=== PATIENT | female | born 1950 | race Caucasian/White ===

== ENCOUNTER → 2016-04-26 | Outpatient (CLI) | payer MEDICARE, OTHER ==
[2016-04-26 14:00] LABS: Basophils % (A) 0 %; CH 31.7; CHCM 33.3; Eosinophils # (A) 0.3 k/uL (0-0.7); Eosinophils % (A) 5 %; HDW 2.78; HGB 11.8 gm/dL (11.4-16.0); Luc % (Auto) 2; Lymphocytes # (A) 1.7 k/uL (1.0-4.8); Lymphocytes % (A) 27 %; MCH 30.5 pg (25.0-35.0); MCHC 31.9 g/dL (31.0-37.0); MCV 95.6 fL (80.0-100.0); Mean Platelet Volume 7.7; Monocytes # (A) 0.3 k/uL (0-1.0); Monocytes % (A) 5 %; Neutrophils # (A) 3.9 k/uL (1.3-7.7); Neutrophils % (A) 61 %; RBC 3.87 m/uL (3.80-5.40); RDW 14.2 % (11.5-15.5); WBC 6.4 k/uL (3.8-10.6)
[2016-04-26 14:01] LABS: Appearance,Urine Cloudy (Clear); Bilirubin,Urine Negative (Negative); Glucose,Urine (UA) Negative (Negative); Ketones,Urine Negative (Negative); Leukocyte Esterase,Urine Moderate (Negative); Mucus,Urine Rare /hpf; Nitrite,Urine Negative (Negative); Particle Count 3340; Protein,Urine 2+ (Negative); RBC,Urine 2 /hpf (0-5); Specific Gravity,Urine 1.009 (1.001-1.035); Squamous Epithelial Cell,Urine 9 /hpf (0-4); UA Billing (MACRO vs. MICRO) MICRO; Urobilinogen,Urine <2.0 mg/dL (<2.0); WBC,Urine 7 /hpf (0-5)
[2016-04-26 14:19] LABS: Calcium 9.5 mg/dL (8.4-10.2); Magnesium 2.5 mg/dL (1.6-2.3); Phosphorous 4.2 mg/dL (2.5-4.5); Potassium 4.7 mmol/L (3.5-5.1); Uric Acid 7.5 mg/dL (3.7-7.4)
[2016-04-26 14:28] LABS: % Iron Saturation 39.1 % (20-50)
== END | disposition home or self-care (01) ==
LOC: LABWHC1 13:10
PROVIDERS: ATTEND Nurse Practitioner Family
DX: N18.5 Chronic kidney disease, stage 5 (principal); D64.9 Anemia, unspecified; N25.81 Secondary hyperparathyroidism of renal origin; N39.0 Urinary tract infection, site not specified
CPT/HCPCS: 36415; 80048; 81001; 82040; 82306; 82728; 83540; 83550; 83735; 83970; 84100; 84550; 85025

== ENCOUNTER → 2016-06-24 | Outpatient (CLI) | payer MEDICARE, OTHER ==
[2016-06-24 13:23] LABS: Calcium 9.5 mg/dL (8.4-10.2); Potassium 5.1 mmol/L (3.5-5.1)
== END | disposition home or self-care (01) ==
LOC: LABWHC1 12:26
PROVIDERS: ATTEND Nurse Practitioner Family
DX: N18.5 Chronic kidney disease, stage 5 (principal)
CPT/HCPCS: 36415; 80048

== ENCOUNTER 2016-06-30 15:19 | Observation (INO) | payer MEDICARE, OTHER ==
[2016-06-30] MEDS ORDERED: SODIUM CHLORIDE 0.9% 1,000 ML IV STA (17:35)
--- NOTE | 2016-06-30 17:40 | ED ---
General Adult HPI - General Chief complaint: Chest Pain Stated complaint: chest pain/RAFFAELE Time Seen by Provider: 06/30/16 17:04 Source: patient, RN notes reviewed, old records reviewed Mode of arrival: wheelchair Limitations: no limitations - History of Present Illness Initial comments: This is a 65-year-old female to the ER for evaluation of chest pain. Patient left sided chest pain underneath her left breast rating around to her back. Patient states she has no prior history of chest pain. She is no accurate historian, family at bedside who also does not know much about her medical history. Patient states pain isn't also midepigastric radiating up to her neck with shortness of breath and she states her mouth feels dry. No nausea vomiting no fevers no cough no congestion no travel history. Patient denies prior cardiac evaluation patient has history of high blood pressure, high cholesterol and high kidney disease per chart. Patient per her history only has one kidney - Related Data Home Medications Medication Instructions Recorded Confirmed ALPRAZolam [Xanax] 0.125 mg PO HS PRN 12/14/14 06/30/16 Allopurinol [Zyloprim] 100 mg PO DAILY 12/14/14 06/30/16 Aspirin 81 mg PO DAILY 12/14/14 06/30/16 Ferrous Sulfate [Feosol] 325 mg PO DAILY 12/14/14 06/30/16 Lovastatin [Mevacor] 20 mg PO HS 12/14/14 06/30/16 Sodium Bicarbonate Tab 650 mg PO BID 12/14/14 06/30/16 Vitamin B Complex 1 cap PO DAILY 12/14/14 06/30/16 Cholecalciferol [Vitamin D3] 2,000 unit PO DAILY 08/26/15 06/30/16 Ascorbic Acid [Vitamin C] 500 mg PO DAILY 06/30/16 06/30/16 Atenolol [Tenormin] 12.5 mg PO HS 06/30/16 06/30/16 Fish Oil/Dha/Epa [Fish Oil 1,200 1 cap PO BID 06/30/16 06/30/16 mg Fish Oil] Sucralfate [Carafate] 1 gm PO AC-TID 06/30/16 06/30/16 Super Kidney Cleanse 1 tab PO BID 06/30/16 06/30/16 Torsemide [Demadex] 20 mg PO DAILY 06/30/16 06/30/16 Allergies Allergy/AdvReac Type Severity Reaction Status Date / Time amoxicillin trihydrate Allergy Anaphylaxis Verified 06/30/16 17:28 [From Augmentin] iodine Allergy Anaphylaxis Verified 06/30/16 17:28 menthol Allergy Unknown Verified 06/30/16 17:28 potassium clavulanate Allergy Anaphylaxis Verified 06/30/16 17:28 [From Augmentin] sulfasalazine Allergy Unknown Verified 06/30/16 17:28 [From Azulfidine] Review of Systems ROS Statement: Those systems with pertinent positive or pertinent negative responses have been documented in the HPI. ROS Other: All systems not noted in ROS Statement are negative. Past Medical History Past Medical History: Hyperlipidemia, Hypertension, Renal Disease Additional Past Medical History / Comment(s): 1 kidney History of Any Multi-Drug Resistant Organisms: None Reported Past Surgical History: Appendectomy, Orthopedic Surgery, Tonsillectomy Past Psychological History: Anxiety Smoking Status: Never smoker Past Alcohol Use History: None Reported Past Drug Use History: None Reported General Exam Limitations: no limitations General appearance: alert, in no apparent distress Head exam: Present: atraumatic, normocephalic, normal inspection Eye exam: Present: normal appearance, PERRL, EOMI. Absent: scleral icterus, conjunctival injection, periorbital swelling ENT exam: Present: normal exam, mucous membranes moist Neck exam: Present: normal inspection. Absent: tenderness, meningismus, lymphadenopathy Respiratory exam: Present: normal lung sounds bilaterally. Absent: respiratory distress, wheezes, rales, rhonchi, stridor Cardiovascular Exam: Present: regular rate, normal rhythm, normal heart sounds. Absent: systolic murmur, diastolic murmur, rubs, gallop, clicks GI/Abdominal exam: Present: soft, normal bowel sounds. Absent: distended, tenderness, guarding, rebound, rigid Extremities exam: Present: normal inspection, full ROM, normal capillary refill. Absent: tenderness, pedal edema, joint swelling, calf tenderness Back exam: Present: normal inspection Neurological exam: Present: alert, oriented X3, CN II-XII intact Psychiatric exam: Present: normal affect, normal mood Skin exam: Present: warm, dry, intact, normal color. Absent: rash Course Vital Signs 06/30/16 16:34 Temperature 98.1 F Pulse Rate 66 Respiratory 18 Rate Blood Pressure 128/66 O2 Sat by Pulse 96 Oximetry - Reevaluation(s) Reevaluation #1: 06/30/16 18:43 Patient still having episodic episodes of chest pain, unsure of recent cardiac evaluation EKG Findings - EKG Comments: EKG Findings:: EKG shows sinus bradycardia rate 59, MI 196; QRS 104, QTC 411 Medical Decision Making - Medical Decision Making 65-year-old year with high blood pressure Kustra coming in with chest pain. Patient be admitted for chest pain observation, EKG and were negative chest x- ray is negative, patient was placed on anticoagulation admitted for cardiac observation and telemetry - Lab Data Result diagrams: 06/30/16 17:14 06/30/16 17:14 Lab Results 06/30/16 06/30/16 06/30/16 Range/Units 17:14 17:14 17:14 WBC 6.8 (3.8-10.6) k/uL RBC 3.54 L (3.80-5.40) m/uL Hgb 11.2 L (11.4-16.0) gm/dL Hct 33.9 L (34.0-46.0) % MCV 96.0 (80.0-100.0) fL MCH 31.8 (25.0-35.0) pg MCHC 33.1 (31.0-37.0) g/dL RDW 14.5 (11.5-15.5) % Plt Count 146 L (150-450) k/uL Neutrophils % 67 % Lymphocytes % 23 % Monocytes % 4 % Eosinophils % 4 % Basophils % 0 % Neutrophils # 4.6 (1.3-7.7) k/uL Lymphocytes # 1.5 (1.0-4.8) k/uL Monocytes # 0.3 (0-1.0) k/uL Eosinophils # 0.3 (0-0.7) k/uL Basophils # 0.0 (0-0.2) k/uL PT (9.0-12.0) sec INR (<1.1) APTT (22.0-30.0) sec Sodium 142 (137-145) mmol/L Potassium 4.5 (3.5-5.1) mmol/L Chloride 105 (98-107) mmol/L Carbon Dioxide 25 (22-30) mmol/L Anion Gap 12 mmol/L BUN 56 H (7-17) mg/dL Creatinine 3.29 H (0.52-1.04) mg/dL Est GFR (MDRD) Af Amer 17 (>60 ml/min/1.73 sqM) Est GFR (MDRD) Non-Af 14 (>60 ml/min/1.73 sqM) Glucose 91 (74-99) mg/dL Calcium 10.0 (8.4-10.2) mg/dL Magnesium 2.4 H (1.6-2.3) mg/dL Total Bilirubin 0.6 (0.2-1.3) mg/dL AST 44 H (14-36) U/L ALT 42 (9-52) U/L Alkaline Phosphatase 75 (38-126) U/L Total Creatine Kinase 56 (30-135) U/L Total Protein 6.7 (6.3-8.2) g/dL Albumin 4.1 (3.5-5.0) g/dL Lipase 168 (23-300) U/L 06/30/16 Range/Units 17:14 WBC (3.8-10.6) k/uL RBC (3.80-5.40) m/uL Hgb (11.4-16.0) gm/dL Hct (34.0-46.0) % MCV (80.0-100.0) fL MCH (25.0-35.0) pg MCHC (31.0-37.0) g/dL RDW (11.5-15.5) % Plt Count (150-450) k/uL Neutrophils % % Lymphocytes % % Monocytes % % Eosinophils % % Basophils % % Neutrophils # (1.3-7.7) k/uL Lymphocytes # (1.0-4.8) k/uL Monocytes # (0-1.0) k/uL Eosinophils # (0-0.7) k/uL Basophils # (0-0.2) k/uL PT 10.5 (9.0-12.0) sec INR 1.0 (<1.1) APTT 21.9 L (22.0-30.0) sec Sodium (137-145) mmol/L Potassium (3.5-5.1) mmol/L Chloride (98-107) mmol/L Carbon Dioxide (22-30) mmol/L Anion Gap mmol/L BUN (7-17) mg/dL Creatinine (0.52-1.04) mg/dL Est GFR (MDRD) Af Amer (>60 ml/min/1.73 sqM) Est GFR (MDRD) Non-Af (>60 ml/min/1.73 sqM) Glucose (74-99) mg/dL Calcium (8.4-10.2) mg/dL Magnesium (1.6-2.3) mg/dL Total Bilirubin (0.2-1.3) mg/dL AST (14-36) U/L ALT (9-52) U/L Alkaline Phosphatase (38-126) U/L Total Creatine Kinase (30-135) U/L Total Protein (6.3-8.2) g/dL Albumin (3.5-5.0) g/dL Lipase (23-300) U/L - Radiology Data Radiology results: report reviewed (Chest x-ray is negative for acute disease), image reviewed Critical Care Time Critical Care Time: Yes Total Critical Care Time: 31 Disposition Clinical Impression: Chest pain Disposition: ADMITTED IP TO THIS [facility] Condition: Undetermined Instructions: Chest Pain (ED) Referrals: Marisela Hoyt MD [Primary Care Provider] - 1-2 days
[2016-06-30 18:09] LABS: Basophils % (A) 0 %; CH 32.3; CHCM 33.8; Eosinophils # (A) 0.3 k/uL (0-0.7); Eosinophils % (A) 4 %; HCT 33.9 % (34.0-46.0); HDW 2.82; HGB 11.2 gm/dL (11.4-16.0); Luc # (Auto) 0.19; Luc % (Auto) 3; Lymphocytes # (A) 1.5 k/uL (1.0-4.8); Lymphocytes % (A) 23 %; MCH 31.8 pg (25.0-35.0); MCHC 33.1 g/dL (31.0-37.0); Mean Platelet Volume 6.9; Monocytes # (A) 0.3 k/uL (0-1.0); Monocytes % (A) 4 %; Neutrophils # (A) 4.6 k/uL (1.3-7.7); Neutrophils % (A) 67 %; RBC 3.54 m/uL (3.80-5.40); RDW 14.5 % (11.5-15.5); WBC 6.8 k/uL (3.8-10.6); WBC (Perox) 7.43
[2016-06-30 18:15] LABS: Prothrombin Time 10.5 sec (9.0-12.0)
--- NOTE | 2016-06-30 18:15 | XR ---
EXAMINATION TYPE: XR chest 2V DATE OF EXAM: 06/30/2016 6:08 PM COMPARISON: 08/26/2015 HISTORY: Short of breath and chest pain TECHNIQUE: Frontal and lateral views of the chest are obtained. FINDINGS: There is no heart failure nor confluent pneumonic infiltrate. There are no hilar masses. T here are chest leads. Bony thorax is intact. IMPRESSION: No active cardiopulmonary disease. No change.
[2016-06-30 18:17] LABS: Magnesium 2.4 mg/dL (1.6-2.3); Potassium 4.5 mmol/L (3.5-5.1); Total Bilirubin 0.6 mg/dL (0.2-1.3); Total Protein 6.7 g/dL (6.3-8.2)
[2016-06-30 18:23] LABS: Partial Thromboplastin Time 21.9 sec (22.0-30.0)
[2016-06-30] MEDS ORDERED: ASPIRIN 81 MG CHEW PO STA (18:25)
[2016-06-30] MEDS ORDERED: HEPARIN SODIUM,PORCINE 5,000 UNIT/ML 1 ML VIAL IV PRN (18:25)
[2016-06-30] MEDS ORDERED: MORPHINE SULFATE 4 MG/ML SYRINGE IV PRN (18:25)
[2016-06-30] MEDS ORDERED: HEPARIN SODIUM,PORCINE 5,000 UNIT/ML 1 ML VIAL IV ONE (18:25)
[2016-06-30] MEDS ORDERED: NITROGLYCERIN SL TABS 0.4 MG TAB SUBLINGUAL PRN (18:25)
[2016-06-30 18:30] LABS: Creatine Kinase 56 U/L (30-135)
[2016-06-30] MEDS ORDERED: HEPARIN SODIUM,PORCINE/D5W PMX 25,000 UNIT in DEXTROSE/WATER 1 500ML.BAG IV SCH (18:30)
[2016-06-30] MEDS ORDERED: SODIUM CHLORIDE 0.9% 1,000 ML IV SCH (18:30)
[2016-06-30 18:44] LABS: Creatine Kinase MB 0.5 ng/mL (0.0-2.4); Troponin I <0.012 ng/mL (0.000-0.034)
[2016-06-30 22:31] VITALS: BMI 44.1
[2016-06-30] MEDS ORDERED: ATENOLOL 12.5 MG TAB PO SCH (23:00)
[2016-06-30] MEDS ORDERED: ATORVASTATIN 10 MG TAB PO SCH (23:00)
[2016-07-01 00:18] LABS: Creatine Kinase 46 U/L (30-135)
[2016-07-01 00:32] LABS: Creatine Kinase MB 0.4 ng/mL (0.0-2.4); Troponin I <0.012 ng/mL (0.000-0.034)
[2016-07-01 06:12] LABS: Mean Platelet Volume 6.8
[2016-07-01 06:25] LABS: Cholesterol 157 mg/dL (<200); HDL Cholesterol 44 mg/dL (40-60); Triglycerides 321 mg/dL (<150)
[2016-07-01 06:38] LABS: Creatine Kinase 42 U/L (30-135)
[2016-07-01 06:51] LABS: Creatine Kinase MB 0.5 ng/mL (0.0-2.4); Troponin I <0.012 ng/mL (0.000-0.034)
[2016-07-01 08:20] VITALS: RESP 18
[2016-07-01] MEDS ORDERED: ASPIRIN 325 MG TAB PO SCH (09:00)
[2016-07-01] MEDS ORDERED: AMINOPHYLLINE 500 MG/20 ML VIAL IV PRN (10:19)
[2016-07-01] MEDS ORDERED: REGADENOSON 0.4 MG/5 ML SYRINGE IV ONE (10:19)
--- NOTE | 2016-07-01 11:10 | CONS ---
DATE OF CONSULTATION: Patient is allergic to multiple medications which include AMOXICILLIN, TRIHYDRATE, IODINE, MENTHOL, POTASSIUM. Patient had episode of chest heaviness and tightness while she was not doing any activity. Pain was under the breast and with radiation to the back. It lasted about 5 - 10 minutes without any diaphoresis. The first episode happened while she was walking a short distance to the pharmacy. Was not able to walk and had felt shortness of breath and heaviness and tightness. Patient had these symptoms on and off for the last 2 - 3 days. Patient's cardiac enzymes x3 are negative. EKGs are within normal limits. Patient has history of only one functioning kidney. Patient is already prepped for dialysis, has not been on dialysis with a creatinine of 3.29, BUN of 56. Potassium is normal. The patient is known to have hypertension, hyperlipidemia. Patient is also allergic to SULFA DRUGS. Patient was seen in the emergency room with left-sided chest pain as mentioned above. Patient is moderately obese, not much activities. Patient has 2 daughters and 1 son. Patient's EKGs are normal. Enzymes as mentioned above are normal. Patient's medications prior to admission include Xanax 0.125 mg p.r.n., Allopurinol 100 mg p.o. daily, aspirin 81 mg, ferrous sulfate 325, lovastatin 20 mg p.o. daily, sodium bicarbonate 50 mg p.o. b.i.d., vitamin B complex 1 tablet daily, Cholecalciferol 2000 units daily, ascorbic acid 500 mg, atenolol 12.5 mg p.o. daily, fish oil capsule 1200 mg capsule b.i.d., Carafate 1 gm p.o. a.c. and t.i.d., torsemide 20 mg p.o. daily. Patient's past history and review of systems are essentially unremarkable other than history of hypertension, hyperlipidemia, renal disease with only one functioning kidney, already prepped for dialysis but not on dialysis at present time. Patient had appendectomy, orthopedic surgery, tonsillectomy. Patient is a nonsmoker, not a diabetic. Review of systems are essentially unremarkable. Troponin x3 are negative. Physical examination revealed a 65-year-old with moderate obesity with a pulse rate of 69 beats per minute and regular, blood pressure of 122/70, respirations of 16. Head normocephalic. HEENT unremarkable. Neck is supple. No thyroid enlargement. No bruit noted. Good carotid upstroke bilaterally. Chest is symmetrical. Cardiac examination, regular rate and rhythm, S1 and S2. Lungs are to clinically clear to auscultation and percussion. Abdomen is soft, no organomegaly. Active bowel sounds. EXTREMITIES: Decreased pedal pulses. No pedal edema. [employer] examination grossly within normal limits. EKG normal sinus rhythm, normal ST-T waves. Troponin x3 are negative. Patient does not chronic renal failure with a creatinine of 3.29, BUN of 56 and allergic to IODINE. ASSESSMENT: 1. Chest pain suggestive of possible angina. 2. Hypertension. 3. Hyperlipidemia. 4. Exogenous obesity. 5. Chronic renal failure already had a dialysis shunt in place, not on dialysis at present time, follows with Dr. Puentes. RECOMMENDATIONS: Will proceed with a Lexiscan Cardiolite study and an echocardiogram and d-dimer. If any of these studies are abnormal, will need to talk to Dr. Puentes before we do any invasive studies. Patient may end up on dialysis if we do the cardiac catheterization. Patient is also allergic to IODINE. Need to supplement with steroids and H2-blockers. Thanks again for this kind referral.
[2016-07-01 13:00] VITALS: BP 136/74; PULSE 65; TEMP 97.7
--- NOTE | 2016-07-01 13:03 | EST ---
DATE OF SERVICE: 07/01/2016 AGE: 65Y SEX: F HT: 60" WT: 225 lbs. Protocol Juliano: Other: Lexiscan Cardiolite Stage: Dur. of Exercise: *Heart Rate Blood Pressure *Rest: 57 Rest: 135/73 * *Max. Achieved: 81 Maximum BP: 135/77 85% PMHR: 100% PMHR: *METS: INDICATIONS: Chest pain. MEDICATIONS: Baseline rhythm is sinus mechanism, rate of 57, left axis deviation, poor R wave progression, nonspecific T wave changes anteriorly. Baseline blood pressure 135/73 mmHg. Patient received an injection of Lexiscan. Electrocardiograph monitoring revealed no evidence of diagnostic ischemic ST deviation. Cardiolite was injected at protocol. Occasional PVCs were noted. CONCLUSION: 1. Nondiagnostic electrocardiograph stress testing. 2. Nuclear images will be reported separately.
[2016-07-01] MEDS ORDERED: ALLOPURINOL 100 MG TAB PO SCH (13:30)
[2016-07-01] MEDS ORDERED: ALPRAZolam 0.25 MG TAB PO SCH (13:30)
[2016-07-01] MEDS ORDERED: NON-FORMULARY DRUG (Fish Oil/Dha/Epa [Fish Oil 1,200 Mg Fish Oil] 1 CAP) PO SCH (13:30)
[2016-07-01] MEDS ORDERED: CHOLECALCIFEROL 1,000 UNIT TAB PO SCH (13:30)
[2016-07-01] MEDS ORDERED: SODIUM BICARBONATE TAB 650 MG TAB PO SCH (13:30)
[2016-07-01] MEDS ORDERED: ASCORBIC ACID 500 MG TAB PO SCH (13:30)
[2016-07-01] MEDS ORDERED: TORSEMIDE 20 MG TAB PO SCH (13:30)
[2016-07-01] MEDS ORDERED: FERROUS SULFATE 325 MG TAB PO SCH (13:30)
--- NOTE | 2016-07-01 13:33 | NM ---
EXAMINATION TYPE: NM stress Lexiscan cardiolite DATE OF EXAM: 07/01/2016 1:20 PM COMPARISON: NONE HISTORY: Chest pain TECHNIQUE: After the intravenous administration of 10.4 mCi Tc 99m Sestamibi - Cardiolite resting SP ECT images acquired 45 minutes post injection. The patient received 0.4mg Lexiscan, 27.5 mCi Tc 99m Sestamibi - Stress images obtained [address] injection FINDINGS: There is adequate uptake of radiopharmaceutical by the left ventricle. There is some thinni ng of the inferior wall. This may represent diaphragmatic attenuation or previous nontransmural infar ct. There is no convincing inducible ischemic change. Wall motion is normal and ejection fraction is normal 54%. IMPRESSION: I DO NOT SEE CONVINCING EVIDENCE OF ISCHEMIC CHANGE AT THIS TIME.
[2016-07-01] MEDS ORDERED: B COMPLEX-VIT C-VIT E-ZINC 1 EACH TAB PO SCH (14:00)
[2016-07-01] MEDS ORDERED: SUCRALFATE 1 GM TAB PO SCH (17:30)
--- NOTE | 2016-07-01 21:14 | HP ---
CHIEF COMPLAINT: Chest pain. HISTORY OF PRESENT ILLNESS: Ms. Sharma is a 65-year-old female with a known history of hypertension, hyperlipidemia, solitary kidney and CKD stage [address] Yang ), came to the hospital with complaints of chest pain. Patient apparently had been having pain underneath her left breast and also in the mid epigastric region, radiating to her neck and with short of breath. Patient decided to come to the hospital. The patient states that her mouth feels very dry. No nausea or vomiting. No headache or dizziness or lightheadedness. Denies any fever or chills. No recent illnesses. Patient has a fistula placed for possible dialysis in future. No prior cardiac history. Denied any recent illnesses or travel. REVIEW OF SYSTEMS: CONSTITUTIONAL: No fever. No chills. No weakness. No rigors. RESPIRATORY: No cough or sputum production. CARDIOVASCULAR: No chest pain or short of breath. No leg swelling. ABDOMEN: No nausea or vomiting, abdominal pain. No diarrhea. GENITOURINARY: Negative. ENDOCRINE: Negative. PSYCHIATRIC: Negative. SKIN: Negative. All other 14-point review of systems negative except as above. PAST MEDICAL HISTORY: CKD stage 4, solitary kidney, hypertension, hyperlipidemia. PAST SURGICAL HISTORY: Appendectomy, orthopedic surgery, tonsillectomy, anxiety. SOCIAL HISTORY: The patient smoked for 1 or 2 years when she was a teenager. Otherwise, no smoking now. Denied any alcohol use. Denied any drugs or IVDU. FAMILY HISTORY: Denied any history of hypertension, diabetes mellitus or premature heart disease in the family. Home medications include: 1. Xanax. 2. Zyloprim. 3. Aspirin. 4. Feosol. 5. Lovastatin. 6. Sodium bicarbonate. 7. Vitamin B complex. 8. Vitamin D3. 9. Vitamin C. 10. Atenolol. 11. Fish oil. 12. Carafate. 13. Super Kidney Cleanse and 14. Torsemide. ALLERGIES INCLUDE AUGMENTIN, IODINE, MENTHOL, POTASSIUM CLAVULANATE AND SULFASALAZINE. PHYSICAL EXAMINATION: A 65-year-old female, morbidly obese, lying in the bed comfortably. Awake, alert and oriented x3. Appears to be in no apparent distress. VITALS: Blood pressure is 134/60, pulse is 69, respirations 18, temperature afebrile, pulse ox 98% on 2L nasal cannula. HEENT: Atraumatic, normocephalic. Neck is supple. No JVD. CVS: S1, S2 heard. No murmurs. No gallop. No rub. LUNGS: Bilateral air entry is present. No wheezing. No crackles. Decreased breath sounds basally. Nonlabored breathing. ABDOMEN: Soft, obese. Bowel sounds are present. TAPPER BIT: Awake, alert, oriented, x3. No focal deficit. EXTREMITIES: No edema. Pulses palpable bilaterally. No clubbing or cyanosis. PSYCHIATRIC: Cooperative. LABORATORY DATA: WBC 6.8, hemoglobin 11.2, platelets 146. D-dimer is 0.34. Sodium 142, potassium 4.5, chloride 105, bicarb is 25. BUN 56, creatinine 3.29. Magnesium 2.4. AST is 44, ALT is 42. Troponin x3 is negative. Triglycerides are 321 and LDL is 49. Lipase is 168. EKG showed normal sinus rhythm with ST-T wave changes. Chest x-ray: No acute cardiopulmonary process. IMPRESSION: 1. Unstable angina. 2. Hypertension. 3. Hyperlipidemia. 4. Chronic kidney disease stage 4, post fistula placement. 5. Morbid obesity with a body mass index of 44. 6. Gastroesophageal reflux disease. DISCUSSION AND PLAN: A 65-year-old female admitted to the hospital with chest pain. Troponins and EKG are negative. Patient recommended by Cardiology having Lexiscan stress test. Otherwise, patient is chest pain free. Will continue the Carafate and recommend to follow with the primary care physician as an outpatient. Will continue tele monitoring and serial EKGs and troponins. Further recommendations based on the clinical course.
--- NOTE | 2016-07-02 11:03 | ECHOF ---
Referral Reason:lv function MEASUREMENTS -------- HEIGHT: 157.5 cm WEIGHT: 102.1 kg BP: IVSd: 1.3 cm (0.6 - 1.1) LVIDd: 5.1 cm (3.9 - 5.3) LVPWd: 1.5 cm (0.6 - 1.1) IVSs: 2.3 cm LVIDs: 3.1 cm LVPWs: 1.7 cm Ao Diam: 3.0 cm (2.0 - 3.7) AV Cusp: 2.0 cm (1.5 - 2.6) LA Diam: 3.9 cm (2.7 - 3.8) MV EXCURSION: 7.983 mm (> 18.000) MV EF SLOPE: 61 mm/s (70 - 150) EPSS: 0.7 cm MV E Justus: 1.10 m/s MV DecT: 254 ms MV A Justus: 1.00 m/s MV E/A Ratio: 1.10 RAP: 5.00 mmHg RVSP: 30.81 mmHg FINDINGS -------- Sinus rhythm with extra systolic beats. This was a technically good study. The left ventricular size is normal. There is mild concentric left ventricular hypertrophy. Overall left ventricular systolic function is normal with, an EF between 55 - 60 %. The right ventricle is normal in size and function. The left atrium is normal in size. The right atrium is normal in size. The aortic valve is trileaflet, and appears structurally normal. No aortic stenosis or regurgitation. The mitral valve is normal. Mild mitral regurgitation is present. Mild tricuspid regurgitation present. The right ventricular systolic pressure, as measured by Doppler, is 30.81mmHg. There is no pulmonic regurgitation present. The aortic root, ascending aorta and aortic arch are normal. There is no pericardial effusion. CONCLUSIONS -------- 1. Sinus rhythm with extra systolic beats. 2. There is no pulmonic regurgitation present. 3. The aortic root, ascending aorta and aortic arch are normal. 4. There is no pericardial effusion. 5. This was a technically good study. 6. There is mild concentric left ventricular hypertrophy. 7. Overall left ventricular systolic function is normal with, an EF between 55 - 60 %. 8. The left atrium is normal in size. 9. The aortic valve is trileaflet, and appears structurally normal. No aortic stenosis or regurgitation. 10. Mild mitral regurgitation is present. 11. Mild tricuspid regurgitation present. 12. The right ventricular systolic pressure, as measured by Doppler, is 30.81mmHg. [employer]: Marcie Dang RDCS
--- NOTE | 2016-07-02 16:13 | DS ---
DATE OF ADMISSION: 06/30/2016 DATE OF DISCHARGE: 07/01/2016 DISCHARGE DIAGNOSES: 1. Angina, ruled out acute coronary syndrome. Lexiscan stress test negative. 2. Morbid obesity with body mass index of 44. 3. Chronic kidney disease stage IV. 4. Hypertension. 5. Hyperlipidemia. 6. Gastroesophageal reflux disease. HOSPITAL COURSE: Ms. Sharma is a 65-year-old female with known history of chronic kidney disease stage IV admitted to the hospital with complaints of chest pain under left breast. The patient was telemonitored and serial EKGs and troponins are negative. Cardiology recommended Lexiscan stress test, which was negative as well. Her symptoms are most likely from GERD related symptoms, which are improved at this time. Patient also has only one functioning kidney and follows with nephrology and patient was placed on dialysis. Otherwise, the patient is stable to be discharged home. DISCHARGE PHYSICAL EXAMINATION: A 65-year-old female lying in the bed comfortably, awake, alert, oriented x3, appears to be in no apparent distress. VITALS: Blood pressure is 136/74, pulse is 65, respirations 18, temperature afebrile, pulse ox 97% on room air. Laboratory data reviewed. Triglycerides 321. Serial troponins are negative. BUN 56, creatinine 3.29. D-dimer 0.34. Discharge physical examination done. Discharge medications include: 1. Ferrous sulfate 325 mg p.o. daily. 2. Atenolol 12.5 mg p.o. at bedtime. 3. Lovastatin 40 mg p.o. at bedtime. 4. Alprazolam 0.25 mg p.o. daily p.r.n. for anxiety. 5. Aspirin 81 mg p.o. daily 6. Torsemide 20 mg p.o. daily. 7. Sodium bicarbonate 650 mg p.o. b.i.d. 8. Sucralfate 1 gram p.o. a.c. t.i.d. 9. Allopurinol 100 mg p.o. daily. 10. Fish oil 1 capsule p.o. b.i.d. 11. Super kidney pattern cleaner 1 tablet p.o. b.i.d. 12. Ascorbic acid 500 mg p.o. daily. 13. Vitamin B complex 1 capsule p.o. daily. 14. Vitamin D3 2000 units of p.o. daily. Activity as tolerated and heart healthy and renal diet and follow with primary care physician, Dr. Marisela Hoyt in 1 to 2 days. Home with self-care.
== END 2016-07-01 17:15 | disposition home or self-care (01) ==
LOC: EC 15:19 → 3OBS 18:25
PROVIDERS: ADMIT Hospitalist; ATTEND Hospitalist
DX: I20.0 Unstable angina (principal); E78.5 Hyperlipidemia, unspecified; Q60.0 Renal agenesis, unilateral; F41.9 Anxiety disorder, unspecified; Z68.42 Body mass index [BMI] 45.0-49.9, adult; I12.9 Hypertensive chronic kidney disease with stage 1 through stage 4 chronic kidney disease, or unspecified chronic kidney disease; Z99.2 Dependence on renal dialysis; N18.4 Chronic kidney disease, stage 4 (severe); Z87.891 Personal history of nicotine dependence; E66.01 Morbid (severe) obesity due to excess calories; Z68.41 Body mass index [BMI] 40.0-44.9, adult; K21.9 Gastro-esophageal reflux disease without esophagitis; Z79.899 Other long term (current) drug therapy; Z79.82 Long term (current) use of aspirin; Z88.2 Allergy status to sulfonamides; Z88.0 Allergy status to penicillin; Z91.048 Other nonmedicinal substance allergy status
CPT/HCPCS: 96365; 96366 ×2; 96376; 99291; 36415; 93005; 93017; 93306; 85379; 83880; 80061; 80053; 82550 ×2; 82553 ×2; 83690; 83735; 84484 ×2; 85025; 85049; 85610; 85730 ×2; 71020; 78452; G0378 ×2; A9500; J1644 ×2; J2785

== ENCOUNTER → 2016-07-27 | Outpatient (CLI) | payer MEDICARE, OTHER ==
[2016-07-27 11:31] LABS: Basophils % (A) 0 %; CH 32.4; CHCM 32.7; Eosinophils # (A) 0.4 k/uL (0-0.7); Eosinophils % (A) 6 %; HCT 34.5 % (34.0-46.0); HDW 2.81; HGB 11.2 gm/dL (11.4-16.0); Luc # (Auto) 0.13; Luc % (Auto) 2; Lymphocytes # (A) 1.1 k/uL (1.0-4.8); Lymphocytes % (A) 19 %; MCH 32.3 pg (25.0-35.0); MCHC 32.4 g/dL (31.0-37.0); MCV 99.7 fL (80.0-100.0); Macrocytosis Slight; Mean Platelet Volume 7.8; Monocytes # (A) 0.3 k/uL (0-1.0); Monocytes % (A) 4 %; Neutrophils # (A) 3.9 k/uL (1.3-7.7); Neutrophils % (A) 68 %; RBC 3.46 m/uL (3.80-5.40); RDW 14.6 % (11.5-15.5); WBC 5.8 k/uL (3.8-10.6); WBC (Perox) 5.97
[2016-07-27 11:37] LABS: Amorphous Sediment,Urine Rare /hpf; Appearance,Urine Cloudy (Clear); Bacteria,Urine Occasional /hpf; Bilirubin,Urine Negative (Negative); Glucose,Urine (UA) Negative (Negative); Ketones,Urine Negative (Negative); Leukocyte Esterase,Urine Moderate (Negative); Mucus,Urine Rare /hpf; Nitrite,Urine Negative (Negative); Particle Count 11296; Protein,Urine 2+ (Negative); RBC,Urine 2 /hpf (0-5); Squamous Epithelial Cell,Urine 14 /hpf (0-4); UA Billing (MACRO vs. MICRO) MICRO; Urobilinogen,Urine <2.0 mg/dL (<2.0); WBC,Urine 16 /hpf (0-5)
[2016-07-27 12:43] LABS: Magnesium 2.2 mg/dL (1.6-2.3); Phosphorous 3.9 mg/dL (2.5-4.5); Potassium 4.7 mmol/L (3.5-5.1); Uric Acid 7.1 mg/dL (3.7-7.4)
== END | disposition home or self-care (01) ==
LOC: LABWHC1 10:57
PROVIDERS: ATTEND Nurse Practitioner Family
DX: N25.81 Secondary hyperparathyroidism of renal origin (principal); E79.0 Hyperuricemia without signs of inflammatory arthritis and tophaceous disease; N18.5 Chronic kidney disease, stage 5; D64.9 Anemia, unspecified; N39.0 Urinary tract infection, site not specified
CPT/HCPCS: 36415; 80048; 81001; 82040; 82306; 82728; 83540; 83550; 83735; 83970; 84100; 84550; 85025

== ENCOUNTER 2018-11-27 07:18 | Observation (INO) | payer MEDICARE, OTHER ==
[2018-11-27] MEDS ORDERED: fentaNYL (PF) 50 MCG/ML 2 ML AMP IV STA ×2 (07:25→08:59)
--- NOTE | 2018-11-27 07:42 | ED ---
Back Pain HPI - General Chief Complaint: Back Pain/Injury Stated Complaint: back pain Time Seen by Provider: 11/27/18 07:18 Source: patient, EMS, RN notes reviewed Mode of arrival: EMS Limitations: physical limitation - History of Present Illness Initial Comments: This is a 67-year-old female with a history of any failure who is on dialysis who states she was moving a small shelf yesterday afternoon around 1600 p.m. when she started developing some low back pain. She did not take anything during the night she told paramedics due to her dialysis. She presented after calling 911 with complaints of 10 out of 10 lumbar back pain also started on seen some pain to her right upper extremity she states during transport. She was given 5 mg of morphine without any resolution of her pain she denies a loss of function to her upper or lower extremities fevers chills sweats or other symptoms. No other injury reported. She does note that she is scheduled for dialysis this morning at 10 AM. This is at [facility]. MD Complaint: back pain - Related Data Home Medications Medication Instructions Recorded Confirmed Allopurinol [Zyloprim] 100 mg PO DAILY 12/14/14 11/27/18 Aspirin 81 mg PO DAILY 12/14/14 11/27/18 Torsemide [Demadex] 20 mg PO DAILY 06/30/16 11/27/18 Acetaminophen Tab [Tylenol] 650 mg PO Q4H PRN 12/13/17 11/27/18 Sevelamer [Renvela] 1,600 mg PO TID 12/13/17 11/27/18 ALPRAZolam [Xanax] 0.25 mg PO HS 11/27/18 11/27/18 Cholecalciferol (Vitamin D3) 2,000 unit PO DAILY 11/27/18 11/27/18 [Vitamin D3] Omeprazole 40 mg PO DAILY 11/27/18 11/27/18 Allergies Allergy/AdvReac Type Severity Reaction Status Date / Time amoxicillin trihydrate Allergy Anaphylaxis Verified 11/27/18 07:59 [From Augmentin] iodine Allergy Anaphylaxis Verified 11/27/18 07:59 menthol Allergy Unknown Verified 11/27/18 07:59 potassium clavulanate Allergy Anaphylaxis Verified 11/27/18 07:59 [From Augmentin] sulfasalazine Allergy Unknown Verified 11/27/18 07:59 [From Azulfidine] Review of Systems ROS Statement: Those systems with pertinent positive or pertinent negative responses have been documented in the HPI. ROS Other: All systems not noted in ROS Statement are negative. Past Medical History Past Medical History: Cancer, Dialysis, Hyperlipidemia, Hypertension, Renal Disease Additional Past Medical History / Comment(s): only has 1functioning kidney, gets dialysis m--.pt stated she missed mondays tx(12-12-17). has lt arm fistula. no bp's or blood braws from lt arm,, Skin CA on the nose, "enlarged heart", gout. it was previously charted that pt has hypertension/cholesterol but pt not aware of this. History of Any Multi-Drug Resistant Organisms: None Reported Past Surgical History: Appendectomy, Orthopedic Surgery, Tonsillectomy Additional Past Surgical History / Comment(s): LA fistula Past Anesthesia/Blood Transfusion Reactions: Previous Problems w/ Anesthesia Additional Past Anesthesia/Blood Transfusion Reaction / Comment(s): Hard time coming out of it Past Psychological History: Anxiety Smoking Status: Former smoker - Past Family History Mother Family Medical History: COPD Additional Family Medical History / Comment(s): Heart issues Father Family Medical History: Cancer Additional Family Medical History / Comment(s): Unknown CA General Exam - General Exam Comments Initial Comments: This is a well-developed obese female who is awake alert oriented 3 Limitations: physical limitation General appearance: alert, in no apparent distress Head exam: Present: atraumatic, normocephalic, normal inspection Eye exam: Present: normal appearance, PERRL, EOMI. Absent: scleral icterus, conjunctival injection, periorbital swelling ENT exam: Present: normal exam, mucous membranes moist Neck exam: Present: normal inspection. Absent: tenderness, meningismus, lymphadenopathy Respiratory exam: Present: normal lung sounds bilaterally. Absent: respiratory distress, wheezes, rales, rhonchi, stridor Cardiovascular Exam: Present: regular rate, normal rhythm, normal heart sounds. Absent: systolic murmur, diastolic murmur, rubs, gallop, clicks GI/Abdominal exam: Present: soft, normal bowel sounds. Absent: distended, tenderness, guarding, rebound, rigid Rectal exam: Present: deferred Extremities exam: Present: normal inspection, full ROM, normal capillary refill. Absent: tenderness, pedal edema, joint swelling, calf tenderness Back exam: Present: normal inspection, tenderness, muscle spasm, paraspinal tenderness. Absent: vertebral tenderness Neurological exam: Present: alert, oriented X3, CN II-XII intact Psychiatric exam: Present: normal affect, normal mood Skin exam: Present: warm, dry, intact, normal color. Absent: rash Course Vital Signs 11/27/18 11/27/18 11/27/18 07:21 09:57 11:28 Temperature 97.9 F Pulse Rate 72 81 62 Respiratory 16 16 16 Rate Blood Pressure 123/66 157/78 119/59 O2 Sat by Pulse 100 100 100 Oximetry - Reevaluation(s) Reevaluation #1: 11/27/18 09:00 I did review the imaging and report no evidence of acute findings or is evidence of degenerative joint disease. Patient states she is not getting better after the initial medication given. I did discuss the case with Dr. Monroy. Patient will get dialyzed in the emergency department. Medical Decision Making - Medical Decision Making I did discuss the findings and reevaluate the patient multiple occasions she still has very severe low back pain. Dialysis is in progress. I did discuss case with Dr. Damian the patient be admitted for evaluation and treatment of intractable pain - Lab Data Result diagrams: 11/27/18 07:35 11/27/18 07:35 Lab Results 11/27/18 11/27/18 Range/Units 07:35 07:35 WBC 6.1 (3.8-10.6) k/uL RBC 3.39 L (3.80-5.40) m/uL Hgb 10.8 L (11.4-16.0) gm/dL Hct 31.8 L (34.0-46.0) % MCV 94.0 (80.0-100.0) fL MCH 32.0 (25.0-35.0) pg MCHC 34.0 (31.0-37.0) g/dL RDW 14.7 (11.5-15.5) % Plt Count 93 L (150-450) k/uL Neutrophils % 67 % Lymphocytes % 23 % Monocytes % 5 % Eosinophils % 4 % Basophils % 0 % Neutrophils # 4.1 (1.3-7.7) k/uL Lymphocytes # 1.4 (1.0-4.8) k/uL Monocytes # 0.3 (0-1.0) k/uL Eosinophils # 0.2 (0-0.7) k/uL Basophils # 0.0 (0-0.2) k/uL Manual Slide Review Performed Sodium 138 (137-145) mmol/L Potassium 4.8 (3.5-5.1) mmol/L Chloride 101 (98-107) mmol/L Carbon Dioxide 25 (22-30) mmol/L Anion Gap 12 mmol/L BUN 52 H (7-17) mg/dL Creatinine 6.42 H (0.52-1.04) mg/dL Est GFR (CKD-EPI)AfAm 7 (>60 ml/min/1.73 sqM) Est GFR (CKD-EPI)NonAf 6 (>60 ml/min/1.73 sqM) Glucose 102 H (74-99) mg/dL Calcium 9.2 (8.4-10.2) mg/dL Magnesium 2.3 (1.6-2.3) mg/dL Total Bilirubin 0.4 (0.2-1.3) mg/dL AST 20 (14-36) U/L ALT 26 (9-52) U/L Alkaline Phosphatase 87 (38-126) U/L Total Protein 6.5 (6.3-8.2) g/dL Albumin 3.8 (3.5-5.0) g/dL Disposition Clinical Impression: Mechanical back pain, Intractable back pain, Chronic renal failure Disposition: ADMITTED IP TO THIS [facility] Condition: Stable Referrals: Marisela Hoyt MD [Primary Care Provider] - 1-2 days
--- NOTE | 2018-11-27 08:03 | CT ---
EXAMINATION TYPE: CT lumbar spine wo con DATE OF EXAM: 11/27/2018 COMPARISON: None HISTORY: 67-year-old female Back pain TECHNIQUE: Contiguous axial scanning of the lumbar spine without IV contrast. Coronal and sagittal re constructions performed. CT DLP: 992.7 mGycm Automated exposure control for dose reduction was used. FINDINGS: Vertebral body heights are preserved. No acute fracture of the lumbar spine. Hypertrophic facet arthropathy mid to lower lumbar spine with grade 1 anterolisthesis at L4-L5 and L5 -S1. Mild bulging disks mid to lower lumbar spine. No evident canal compromise by CT. Superior endplate is noted of L4. On the left, changes result in mild neural foraminal narrowing at L4-L5 and L5-S1 and mild to moderat e on the right at L4-L5. No prevertebral or paravertebral soft tissue abnormality seen. IMPRESSION: 1. HYPERTROPHIC FACET ARTHROPATHY MID TO LOWER LUMBAR SPINE WITH GRADE 1 ANTEROLISTHESIS AT L4-L5 AND L5-S1. 2. SUPERIOR ENDPLATE SCHMORL'S NODE OF L4 INCIDENTALLY NOTED. NO VERTEBRAL COMPRESSION COLLAPSE. 3. MILD NEUROFORAMINAL NARROWING LOWER LUMBAR SPINE, MORE MILD TO MODERATE ON THE RIGHT AT L4-L5.
[2018-11-27 08:08] LABS: Basophils % (A) 0 %; Eosinophils # (A) 0.2 k/uL (0-0.7); Eosinophils % (A) 4 %; HCT 31.8 % (34.0-46.0); HGB 10.8 gm/dL (11.4-16.0); Lymphocytes # (A) 1.4 k/uL (1.0-4.8); Lymphocytes % (A) 23 %; Mean Platelet Volume 7.1; Monocytes # (A) 0.3 k/uL (0-1.0); Monocytes % (A) 5 %; Neutrophils # (A) 4.1 k/uL (1.3-7.7); Neutrophils % (A) 67 %; RBC 3.39 m/uL (3.80-5.40); RDW 14.7 % (11.5-15.5); WBC 6.1 k/uL (3.8-10.6)
[2018-11-27 08:18] LABS: Albumin 3.8 g/dL (3.5-5.0); Calcium 9.2 mg/dL (8.4-10.2); Magnesium 2.3 mg/dL (1.6-2.3); Potassium 4.8 mmol/L (3.5-5.1); Total Bilirubin 0.4 mg/dL (0.2-1.3); Total Protein 6.5 g/dL (6.3-8.2)
[2018-11-27 08:41] LABS: Platelet Count 93 k/uL (150-450)
[2018-11-27] MEDS ORDERED: LORazepam 2 MG/ML INJ IV STA (08:59)
--- NOTE | 2018-11-27 10:35 | P.NPCON ---
History of Present Illness - Reason for Consult end stage renal disease - History of Present Illness Reason for consultation: End-stage renal disease History of present illness: Patient is a 67-year-old female seen in renal consultation for end-stage renal disease. Patient was seen and examined in the emergency room. She is maintained on hemodialysis on a Tuesday schedule. Patient sta dolores she had a water leak at her house yesterday and was trying to move a cabinet. Patient states 2 hours later she felt pain in her lower back. The pain progressively got worse to the point that this morning it took her 2 hours to get out of bed. Patient then decided to come to the hospital. She denies any fever or chills. No vomiting or diarrhea. No chest pain or shortness of breath. She did undergo CAT scan of the lumbar spine which revealed hypertrophic facet arthropathy and mild neuroforaminal narrowing. No acute fractures were noted. Hemodynamically she stable. She denies missing any dialysis treatments outpatient. No other complaints at this time. Continues to have pain in her lower back. Vital signs are stable. General: The patient appeared well nourished and normally developed. HEENT: Head exam is unremarkable. Neck is without jugular venous distension. LUNGS: Lungs are clear to auscultation and percussion. Breath sounds decreased. HEART: Rate and Rhythm are regular. First and second heart sounds normal. No murmurs, rubs or gallops. ABDOMEN: Abdominal exam reveals normal bowel sounds. Non-tender and non- distended. No evidence of peritonitis. EXTREMITITES: No clubbing, cyanosis, or edema. Past Medical History Past Medical History: Cancer, Dialysis, Hyperlipidemia, Hypertension, Renal Disease Additional Past Medical History / Comment(s): only has 1functioning kidney, gets dialysis --.pt stated she missed mondays tx(12-12-18). has lt arm fistula. no bp's or blood braws from lt arm,, Skin CA on the nose, "enlarged heart", gout. it was previously charted that pt has hypertension/cholesterol but pt not aware of this. History of Any Multi-Drug Resistant Organisms: None Reported Past Surgical History: Appendectomy, Orthopedic Surgery, Tonsillectomy Additional Past Surgical History / Comment(s): LA fistula Past Anesthesia/Blood Transfusion Reactions: Previous Problems w/ Anesthesia Additional Past Anesthesia/Blood Transfusion Reaction / Comment(s): Hard time co fe out of it Past Psychological History: Anxiety Smoking Status: Former smoker - Past Family History Mother Family Medical History: COPD Additional Family Medical History / Comment(s): Heart issues Father Family Medical History: Cancer Additional Family Medical History / Comment(s): Unknown CA Medications and Allergies Home Medications Medication Instructions Recorded Confirmed Type Allopurinol [Zyloprim] 100 mg PO DAILY 12/14/14 11/27/18 History Aspirin 81 mg PO DAILY 12/14/14 11/27/18 History Torsemide [Demadex] 20 mg PO DAILY 06/30/16 11/27/18 History Acetaminophen Tab [Tylenol] 650 mg PO Q4H PRN 12/13/17 11/27/18 History Sevelamer [Renvela] 1,600 mg PO TID 12/13/17 11/27/18 History ALPRAZolam [Xanax] 0.25 mg PO HS 11/27/18 11/27/18 History Cholecalciferol (Vitamin D3) 2,000 unit PO DAILY 11/27/18 11/27/18 History [Vitamin D3] Omeprazole 40 mg PO DAILY 11/27/18 11/27/18 History Allergies Allergy/AdvReac Type Severity Reaction Status Date / Time amoxicillin trihydrate Allergy Anaphylaxis Verified 11/27/18 07:59 [From Augmentin] iodine Allergy Anaphylaxis Verified 11/27/18 07:59 menthol Allergy Unknown Verified 11/27/18 07:59 potassium clavulanate Allergy Anaphylaxis Verified 11/27/18 07:59 [From Augmentin] sulfasalazine Allergy Unknown Verified 11/27/18 07:59 [From Azulfidine] Physical Exam Vitals: Vital Signs Temp Pulse Resp BP Pulse Ox 11/27/18 09:57 81 16 157/78 100 11/27/18 07:21 97.9 F 72 16 123/66 100 Intake and Output 11/26/18 11/27/18 11/27/18 22:59 06:59 14:59 Other: Weight 94 kg Results - Lab Results Most recent lab results Calcium 9.2 mg/dL (8.4-10.2) 11/27/18 07:35 Magnesium 2.3 mg/dL (1.6-2.3) 11/27/18 07:35 11/27/18 07:35 11/27/18 07:35 Assessment and Plan Plan: Assessment: 1. End-stage renal disease maintained on hemodialysis on a Tuesday schedule. 2. Back pain that appears to be musculoskeletal with arthritic changes noted on CAT scan. 3. Chronic kidney disease mineral bone disease maintained on Renvela. 4. Anemia of chronic kidney disease. Hemoglobin at goal. Plan: Hemodialysis today. If back pain is improved, she can be discharged home from nephrology standpoint. Thank you for the consultation. I will continue to follow the patient with you during her hospital stay.
[2018-11-27] MEDS ORDERED: NALOXONE 0.4 MG/ML 1 ML VIAL IV PRN (13:21)
[2018-11-27] MEDS ORDERED: ACETAMINOPHEN TAB 325 MG TAB PO PRN (13:23)
--- NOTE | 2018-11-27 14:38 | P.HPIM ---
History of Present Illness Patient is a pleasant 67-year-old female came in with complaints of back pain which started yesterday patient denied any fall patient has severe low back pain along with neck pain patient has radiculopathy with radiating tingling and numbness behind her back to the legs. Patient denied any loss of bowel or bladder incontinence. Patient had a CAT scan of the lumbar spine which showed hypertrophic facet arthropathy with mild neuroforaminal narrowing. Patient was started on tramadol as she cannot use any other NSAID and Tylenol for pain and the Decadron for inflammation along with GI prophylaxis. Patient is undergoing hemodialysis now. Patient is Tuesday schedule hemodialysis. Patient denied any fever chills denied any IV drug use. Review of Systems REVIEW OF SYSTEMS: CONSTITUTIONAL: No fever, no malaise, no fatigue. HEENT: No recent visual problems or hearing problems. Denied any sore throat. CARDIOVASCULAR: No chest pain, orthopnea, PND, no palpitations, no syncope. PULMONARY: No shortness of breath, no cough, no hemoptysis. GASTROINTESTINAL: No diarrhea, no nausea, no vomiting, no abdominal pain. NEUROLOGICAL: No headaches, no weakness, no numbness. HEMATOLOGICAL: Denies any bleeding or petechiae. GENITOURINARY: Denies any burning micturition, frequency, or urgency. MUSCULOSKELETAL/RHEUMATOLOGICAL: Back pain as mentioned above ENDOCRINE: Denies any polyuria or polydipsia. The rest of the 14-point review of systems is negative. Past Medical History Past Medical History: Cancer, Dialysis, GERD/Reflux, GI Bleed, Hearing Disorder / Deafness, Renal Disease Additional Past Medical History / Comment(s): ESRD with hemodialysis M/W/F, mineral bone disease, mild heart enlargement, skin cancer removed from nose, lower GI bleed years ago, UTI, [place] bilaterally with hearing aides. History of Any Multi-Drug Resistant Organisms: None Reported Past Surgical History: Appendectomy, Joint Replacement, Tonsillectomy Additional Past Surgical History / Comment(s): LA fistula, colonoscopy, skin cancer removed from nose, total left knee arthroplasty Past Anesthesia/Blood Transfusion Reactions: Previous Problems w/ Anesthesia Additional Past Anesthesia/Blood Transfusion Reaction / Comment(s): Difficulty waking Past Psychological History: Anxiety Additional Psychological History / Comment(s): Pt resides with her vignesh and son-in-law and grandchildren. She uses a walker to ambulate. She no longer drives, she uses the bus to get to appointments. Single level home which has a couple porch steps. Smoking Status: Former smoker Past Alcohol Use History: None Reported Additional Past Alcohol Use History / Comment(s): Pt smoked briefly age 19 to 20 then quit. smoked 3 cig per week Past Drug Use History: None Reported - Past Family History Mother Family Medical History: COPD Additional Family Medical History / Comment(s): Heart issues Father Family Medical History: Cancer Additional Family Medical History / Comment(s): Unknown CA Medications and Allergies Home Medications Medication Instructions Recorded Confirmed Type Allopurinol [Zyloprim] 100 mg PO DAILY 12/14/14 11/27/18 History Aspirin 81 mg PO DAILY 12/14/14 11/27/18 History Torsemide [Demadex] 20 mg PO DAILY 06/30/16 11/27/18 History Acetaminophen Tab [Tylenol] 650 mg PO Q4H PRN 12/13/17 11/27/18 History Sevelamer [Renvela] 1,600 mg PO TID 12/13/17 11/27/18 History ALPRAZolam [Xanax] 0.25 mg PO HS 11/27/18 11/27/18 History Cholecalciferol (Vitamin D3) 2,000 unit PO DAILY 11/27/18 11/27/18 History [Vitamin D3] Omeprazole 40 mg PO DAILY 11/27/18 11/27/18 History Allergies Allergy/AdvReac Type Severity Reaction Status Date / Time amoxicillin trihydrate Allergy Anaphylaxis Verified 11/27/18 07:59 [From Augmentin] iodine Allergy Anaphylaxis Verified 11/27/18 07:59 menthol Allergy Unknown Verified 11/27/18 07:59 potassium clavulanate Allergy Anaphylaxis Verified 11/27/18 07:59 [From Augmentin] sulfasalazine Allergy Unknown Verified 11/27/18 07:59 [From Azulfidine] Physical Exam Vitals: Vital Signs Temp Pulse Resp BP Pulse Ox 11/27/18 13:30 78 16 110/61 98 11/27/18 11:28 62 16 119/59 100 11/27/18 09:57 81 16 157/78 100 11/27/18 07:21 97.9 F 72 16 123/66 100 Intake and Output 11/26/18 11/27/18 11/27/18 22:59 06:59 14:59 Other: Weight 94 kg PHYSICAL EXAMINATION: GENERAL: The patient is alert and oriented x3, not in any acute distress. Well developed, well nourished. HEENT: Pupils are round and equally reacting to light. EOMI. No scleral icterus. No conjunctival pallor. Normocephalic, atraumatic. No pharyngeal erythema. No thyromegaly. CARDIOVASCULAR: S1 and S2 present. No murmurs, rubs, or gallops. PULMONARY: Chest is clear to auscultation, no wheezing or crackles. ABDOMEN: Soft, nontender, nondistended, normoactive bowel sounds. No palpable organomegaly. MUSCULOSKELETAL: No joint swelling or deformity. Patient does have lumbar paraspinal tenderness. EXTREMITIES: No cyanosis, clubbing, or pedal edema. NEUROLOGICAL: Gross neurological examination did not reveal any focal deficits. SKIN: No rashes. Results CBC & Chem 7: 11/27/18 07:35 11/27/18 07:35 Labs: Abnormal Lab Results - Last 24 Hours (Table) 11/27/18 11/27/18 Range/Units 07:35 07:35 RBC 3.39 L (3.80-5.40) m/uL Hgb 10.8 L (11.4-16.0) gm/dL Hct 31.8 L (34.0-46.0) % Plt Count 93 L (150-450) k/uL BUN 52 H (7-17) mg/dL Creatinine 6.42 H (0.52-1.04) mg/dL Glucose 102 H (74-99) mg/dL Thrombosis Risk Factor Assmnt - Choose All That Apply Any of the Below Risk Factors Present?: Yes Each Factor Represents 1 point: Obesity (BMI >25) Other Risk Factors: Yes Each Risk Factor Represents 2 Points: Age 61-74 years, Malignancy Other congenital or acquired thrombophilia - If yes, enter type in comment: No Thrombosis Risk Factor Assessment Total Risk Factor Score: 5 Thrombosis Risk Factor Assessment Level: High Risk Assessment and Plan Plan: -Back pain appears to have degenerative lumbar spine disease as well as of the cervical spine disease with radiculopathy, patient will be started on the Decadron for inflammation, physical therapy at admission of the consultation patient is willing to go to subacute rehabilitation if necessary. Tramadol and Tylenol for pain cannot use any other NSAID's because of end-stage renal disease disease End-stage renal disease hemodialysis dependent patient will continue her Tuesday schedule here in the hospital -Gastroesophageal reflux disease -Anxiety disorder -DVT prophylaxis with subcutaneous heparin
[2018-11-27] MEDS: DEXAMETHASONE 4 MG TAB PO SCH ×2 (16:05→21:39)
[2018-11-27] MEDS: HEPARIN SODIUM,PORCINE 5,000 UNIT/ML 1 ML VIAL SQ SCH ×2 (16:05→22:45)
[2018-11-27 17:06] LABS: Glucose,Whole Blood 94 mg/dL (75-99)
--- NOTE | 2018-11-27 17:42 | P.CNOR ---
History of Present Illness - [facility] Consult date: 11/27/18 Requesting physician: Parth Damian Consult reason: low back pain (Intractable low back pain and lower extremity radiculopathy) History of present illness: Patient is a pleasant 67-year-old female who is seen and examined at the bedside for further evaluation for intractable low back pain and lower extremity radiculopathy. Symptoms started yesterday after she was doing some moving in her house. She was doing a lot of bending and twisting at that time. She states she was unable to get out of bed this morning and was brought to the emergency department by ambulance. She states she was unable to lift her legs this morning. After receiving pain medication throughout the day her symptoms are improving. She continues to have intractable back pain and is not currently experiencing any significant lower extremity weakness bilaterally. She states she is able to move her legs. She has not had any improvement in her back pain. She states she does have chronic numbness in the bilateral feet. She is not currently experiencing any significant radiculopathy pattern in the bilateral lower extremities. Patient is known to have end-stage renal disease and current ly undergoes dialysis on Mondays, Wednesdays, and Fridays. She did have dialysis today. She is unable to take anti-inflammatory medication. She is currently receiving dexamethasone and Ultram for pain control as prescribed by medicine. She denies specific injury yesterday. She does have a history of a left total knee arthroplasty. Past Medical History Past Medical History: Cancer, Dialysis, GERD/Reflux, GI Bleed, Hearing Disorder / Deafness, Renal Disease Additional Past Medical History / Comment(s): ESRD with hemodialysis M/W/F, mineral bone disease, mild heart enlargement, skin cancer removed from nose, lower GI bleed years ago, UTI, [place] bilaterally with hearing aides. History of Any Multi-Drug Resistant Organisms: None Reported Past Surgical History: Appendectomy, Joint Replacement, Tonsillectomy Additional Past Surgical History / Comment(s): LA fistula, colonoscopy, skin cancer removed from nose, total left knee arthroplasty Past Anesthesia/Blood Transfusion Reactions: Previous Problems w/ Anesthesia Additional Past Anesthesia/Blood Transfusion Reaction / Comm: Difficulty waking Past Psychological History: Anxiety Additional Psychological History / Comment(s): Pt resides with her vignesh and son-in-law and grandchildren. She uses a walker to ambulate. She no longer drives, she uses the bus to get to appointments. Single level home which has a couple porch steps. Smoking Status: Former smoker Past Alcohol Use History: None Reported Additional Past Alcohol Use History / Comment(s): Pt smoked briefly age 19 to 20 then quit. smoked 3 cig per week Past Drug Use History: None Reported - Past Family History Mother Family Medical History: COPD Additional Family Medical History / Comment(s): Heart issues Father Family Medical History: Cancer Additional Family Medical History / Comment(s): Unknown CA Medications and Allergies Home Medications Medication Instructions Recorded Confirmed Type Allopurinol [Zyloprim] 100 mg PO DAILY 12/14/14 11/27/18 History Aspirin 81 mg PO DAILY 12/14/14 11/27/18 History Torsemide [Demadex] 20 mg PO DAILY 06/30/16 11/27/18 History Acetaminophen Tab [Tylenol] 650 mg PO Q4H PRN 12/13/17 11/27/18 History Sevelamer [Renvela] 1,600 mg PO TID 12/13/17 11/27/18 History ALPRAZolam [Xanax] 0.25 mg PO HS 11/27/18 11/27/18 History Cholecalciferol (Vitamin D3) 2,000 unit PO DAILY 11/27/18 11/27/18 History [Vitamin D3] Omeprazole 40 mg PO DAILY 11/27/18 11/27/18 History Allergies Allergy/AdvReac Type Severity Reaction Status Date / Time amoxicillin trihydrate Allergy Anaphylaxis Verified 11/27/18 07:59 [From Augmentin] iodine Allergy Anaphylaxis Verified 11/27/18 07:59 menthol Allergy Unknown Verified 11/27/18 07:59 potassium clavulanate Allergy Anaphylaxis Verified 11/27/18 07:59 [From Augmentin] sulfasalazine Allergy Unknown Verified 11/27/18 07:59 [From Azulfidine] Physical Examination Physical exam: Patient is awake, alert, and oriented 3 Vital signs stable Good chest excursion with deep inspiration and expiration Examination of lumbar spine reveals skin is intact with no abrasions, lacerations, or bruises; no erythema, purulence or signs of infection Significant pain on palpation along the midline of the lower lumbar spine Increased back pain while rolling over in bed Dorsiflexion, plantarflexion, and extensor hallucis longus positive sustained bilaterally Lower extremity strength 5/5 bilaterally Patellar reflex 1+ bilaterally Evidence of a well-healed incision over the left knee No lower extremity hyperreflexia bilaterally Straight leg test negative bilateral lower extremities Negative Lasegue's test bilaterally No signs or symptoms of DVT; no calf pain No pain with internal and external rotation of the hips bilaterally Neurovascularly intact Results Pertinent studies: CT of the lumbar spine taken on 11/27/2018: L4-5 and L5-S1 grade 1 spondylolisthesis; facet hypertrophy middle lower lumbar spine; L4-5 mild left neural foraminal narrowing and moderate right neural foraminal narrowing; L5-S1 mild left neural foraminal narrowing; no prevertebral paravertebral soft tissue abnormality seen; no evidence of acute fracture of the lumbar spine; vertebral body heights appear to be well maintained - Labs Labs: Abnormal Lab Results - Last 24 Hours (Table) 11/27/18 11/27/18 Range/Units 07:35 07:35 RBC 3.39 L (3.80-5.40) m/uL Hgb 10.8 L (11.4-16.0) gm/dL Hct 31.8 L (34.0-46.0) % Plt Count 93 L (150-450) k/uL BUN 52 H (7-17) mg/dL Creatinine 6.42 H (0.52-1.04) mg/dL Glucose 102 H (74-99) mg/dL H & H 11/27/18 Range/Units 07:35 Hgb 10.8 L (11.4-16.0) gm/dL Hct 31.8 L (34.0-46.0) % Result Diagrams: 11/27/18 07:35 11/27/18 07:35 Assessment and Plan Assessment: Assessment: Intractable low back pain Lower extremity radiculopathy resolved L4-5 and L5-S1 grade 1 spondylolisthesis L4-5 and L5-S1 neuroforaminal narrowing Lumbar facet hypertrophy Chronic numbness in bilateral feet End-stage renal disease currently on dialysis 3 days per week (1) Spondylolisthesis, lumbar region Current Visit: Yes Status: Acute Code(s): M43.16 - SPONDYLOLISTHESIS, LUMBAR REGION SNOMED Code(s): 683764426602502 (2) Spondylolisthesis, lumbosacral region Current Visit: Yes Status: Acute Code(s): M43.17 - SPONDYLOLISTHESIS, LUMBOSACRAL REGION SNOMED Code(s): 600642702 (3) Lumbar facet arthropathy Current Visit: Yes Status: Acute Code(s): M47.816 - SPONDYLOSIS W/O MYELOPATHY OR RADICULOPATHY, LUMBAR REGION SNOMED Code(s): 213444595 (4) Numbness and tingling of both feet Current Visit: Yes Status: Acute Code(s): R20.0 - ANESTHESIA OF SKIN; R20.2 - PARESTHESIA OF SKIN SNOMED Code(s): 442047623 (5) Intractable back pain Current Visit: Yes Status: Acute Code(s): M54.9 - DORSALGIA, UNSPECIFIED SNOMED Code(s): 854844258 (6) End stage renal disease on dialysis Current Visit: No Status: Acute Code(s): N18.6 - END STAGE RENAL DISEASE; Z99.2 - DEPENDENCE ON RENAL DIALYSIS SNOMED Code(s): 451562874 Plan: Plan: 1. Patient has been discussed in detail with Dr. Derek Castaneda. After reviewing of imaging, physical examination of the patient, and further discussion with the patient, we will currently plan to continue with conservative treatment in regards to her lumbar spine. She does have some degenerative changes most significant at L4-5 and L5-S1. Patient symptoms have been exacerbated over 1 day after increased activities, moving in her house. Her increased activities included bending and twisting. She has recently had a CT of the lumbar spine that does show degenerative changes. She does not have evidence of acute fracture. She was having significant difficulty with pain in active range of motion bilateral lower extremities but states these symptoms have improved since her admission to the hospital. She continues to experience intractable low back pain. At this time, we will plan for consultation with pain management. We will plan to have the patient exhaust all conservative treatment options before discussing a possibility of surgical intervention. At this time, she's clear for discharge from an orthopedic spine standpoint. We'll plan to have her follow up in the outpatient setting on an as-needed basis. 2. Patient waiting for consultation with pain management 3. Patient will continue to be seen again by nephrology and medicine for her other medical diagnoses Time with Patient: Greater than 30 (Including obtaining history, physical examination, reviewing of imaging, and dictation.)
[2018-11-27] MEDS: SEVELAMER 800 MG TAB PO SCH ×3 (18:02→21:42)
[2018-11-27] MEDS: ALPRAZolam 0.25 MG TAB PO SCH (21:39)
[2018-11-27] MEDS: traMADol 50 MG TAB PO PRN (22:44)
[2018-11-28] MEDS: SEVELAMER 800 MG TAB PO SCH ×3 (08:23→20:49)
[2018-11-28] MEDS: CHOLECALCIFEROL 1,000 UNIT TAB PO SCH (08:23)
[2018-11-28] MEDS: DEXAMETHASONE 4 MG TAB PO SCH ×3 (08:23→20:49)
[2018-11-28] MEDS: PANTOPRAZOLE 40 MG TABLET PO SCH (08:23)
[2018-11-28] MEDS: ASPIRIN 81 MG PO SCH (08:23)
[2018-11-28] MEDS: TORSEMIDE 20 MG TAB PO SCH (08:23)
[2018-11-28] MEDS: ALLOPURINOL 100 MG TAB PO SCH (08:23)
[2018-11-28] MEDS: HEPARIN SODIUM,PORCINE 5,000 UNIT/ML 1 ML VIAL SQ SCH ×2 (08:23→16:15)
--- NOTE | 2018-11-28 12:19 | P.PN ---
Subjective Patient is seen in follow-up for end-stage renal disease. She is maintained on hemodialysis on a Tuesday schedule. Back pain is better. She was ambulating this morning. Oral intake is good. No vomiting or diarrhea. Vital signs are stable. General: The patient appeared well nourished and normally developed. HEENT: Head exam is unremarkable. Neck is without jugular venous distension. LUNGS: Lungs are clear to auscultation and percussion. Breath sounds decreased. HEART: Rate and Rhythm are regular. First and second heart sounds normal. No murmurs, rubs or gallops. ABDOMEN: Abdominal exam reveals normal bowel sounds. Non-tender and non- distended. No evidence of peritonitis. EXTREMITITES: No clubbing, cyanosis, or edema. Objective - Vital Signs Vital signs: Vital Signs Temp 98.0 F 11/28/18 05:00 Pulse 82 11/28/18 05:00 Resp 18 11/28/18 05:00 BP 131/77 11/28/18 05:00 Pulse Ox 94 L 11/28/18 05:00 Intake & Output 11/27/18 11/28/18 11/28/18 18:59 06:59 18:59 Intake Total 750 Output Total 1300 Balance -1300 750 Weight 94 kg Intake: Oral 750 Output: Hemodialysis 1300 Other: Voiding Method Bedside Commode # Voids 1 2 3 - Labs CBC & Chem 7: 11/27/18 07:35 11/27/18 07:35 Assessment and Plan Plan: Assessment: 1. End-stage renal disease maintained on hemodialysis on a Tuesday schedule. 2. Back pain that appears to be musculoskeletal with arthritic changes noted on CAT scan. 3. Chronic kidney disease mineral bone disease maintained on Renvela. 4. Anemia of chronic kidney disease. Hemoglobin at goal. Plan: Hemodialysis tomorrow. Stable to be discharged from nephrology standpoint.
--- NOTE | 2018-11-28 14:31 | P.PN ---
Subjective Progress Note Date: 11/28/18 Principal diagnosis: This is a 67-year-old female who is having right-sided lower back pain and states that she was unable to walk due to the intense pain. When visiting the patient this morning, PT/OT had not worked with her as of yet. Patient was still having some right-sided lower back pain. Patient was denying any chest pain, shortness of breath, or palpitations at this time. Patient is denying any nausea or vomiting and tolerating diet. Patient was currently eating breakfast at the time. Per nursing staff, the patient was to be seen by pain management and has not as of yet. Patient is a hemodialysis patient and received dialysis yesterday as her normal schedule is Tuesday and Tuesday. Per nephrology patient is stable for discharge and able to receive dialysis in the morning. Guarded prognosis. Objective - Vital Signs Vital signs: Vital Signs Temp 97.8 F 11/28/18 12:27 Pulse 65 11/28/18 12:27 Resp 18 11/28/18 12:27 BP 149/86 11/28/18 12:27 Pulse Ox 95 11/28/18 12:27 Intake & Output 11/27/18 11/28/18 11/28/18 18:59 06:59 18:59 Intake Total 750 Output Total 1300 Balance -1300 750 Weight 94 kg Intake: Oral 750 Output: Hemodialysis 1300 Other: Voiding Method Bedside Commode # Voids 1 2 3 - Exam Gen: This is a 67-year-old female sitting up in bed in no acute distress. Patient is eating breakfast at this time. Vital signs are stable HEENT: Head is atraumatic, normocephalic. Pupils equal, round. Sclerae is anicteric. NECK: Supple. No JVD. No lymphadenopathy. No thyromegaly. LUNGS: Clear to auscultation. No wheezes or rhonchi. No intercostal retractions. HEART: Regular rate and rhythm. No murmur. ABDOMEN: Soft. Bowel sounds are present. Obese. No masses. No tenderness. EXTREMITIES: No pedal edema. No calf tenderness. MUSCULOSKELETAL: Mild to moderate right lower back pain radiating in the buttock and down the thigh. Tender upon palpation NEUROLOGICAL: Patient is awake, alert and oriented x3. Cranial nerves 2 through 12 are grossly intact. Gait deferred - Labs CBC & Chem 7: 11/27/18 07:35 11/27/18 07:35 Assessment and Plan Assessment: -Back pain appears to have degenerative lumbar spine disease as well as of the cervical spine disease with radiculopathy, patient will be started on the Decadron for inflammation, physical therapy at admission of the consultation patient is willing to go to subacute rehabilitation if necessary. Tramadol and Tylenol for pain cannot use any other NSAID's because of end-stage renal disease disease End-stage renal disease hemodialysis dependent patient will continue her Tuesday schedule here in the hospital -Gastroesophageal reflux disease -Anxiety disorder -DVT prophylaxis with subcutaneous heparin Recommendations and discussion Recommend continue current medication management and symptomatically treatment. PT/OT are following as well as nephrology and orthopedic. Per nephrology and orthopedic standpoint patient is stable for discharge. Pain management was consult did an awaiting a consult at this time. Continue working with PT/OT and await the report for possible subacute rehab if necessary. Guarded prognosis. Further recommendations to follow. Probable discharge in 24 hours.
--- NOTE | 2018-11-28 20:05 | P.PAINCN ---
History of Present Illness - Reason for Consult Consult date: 11/28/18 - History of Present Illness This is 67 years old female who was admitted to [facility] because of intractable low back pain, she reported that her low back pain started after she was moving furniture at home, and the pain is localized in the low back area with radiation to lower extremity, and she was not able to move out of bed because of the intensity of the pain, patient was admitted to [facility] and she was started on Ultram 50 mg every 6 hours and dexamethasone 4 mg 3 times a day and she is on Tylenol 650 every 4 hours when necessary, she reported that the medication therapy improved her pain, and currently her pain under control Past Medical History Past Medical History: Cancer, Dialysis, GERD/Reflux, GI Bleed, Hearing Disorder / Deafness, Renal Disease Additional Past Medical History / Comment(s): ESRD with hemodialysis M/W/F, mineral bone disease, mild heart enlargement, skin cancer removed from nose, lower GI bleed years ago, UTI, [place] bilaterally with hearing aides. History of Any Multi-Drug Resistant Organisms: None Reported Past Surgical History: Appendectomy, Joint Replacement, Tonsillectomy Additional Past Surgical History / Comment(s): LA fistula, colonoscopy, skin cancer removed from nose, total left knee arthroplasty Past Anesthesia/Blood Transfusion Reactions: Previous Problems w/ Anesthesia Additional Past Anesthesia/Blood Transfusion Reaction / Comm: Difficulty waking Past Psychological History: Anxiety Additional Psychological History / Comment(s): Pt resides with her vignesh and son-in-law and grandchildren. She uses a walker to ambulate. She no longer drives, she uses the bus to get to appointments. Single level home which has a couple porch steps. Smoking Status: Former smoker Past Alcohol Use History: None Reported Additional Past Alcohol Use History / Comment(s): Pt smoked briefly age 19 to 20 then quit. smoked 3 cig per week Past Drug Use History: None Reported - Past Family History Mother Family Medical History: COPD Additional Family Medical History / Comment(s): Heart issues Father Family Medical History: Cancer Additional Family Medical History / Comment(s): Unknown CA Medications and Allergies Home Medications Medication Instructions Recorded Confirmed Type Allopurinol [Zyloprim] 100 mg PO DAILY 12/14/14 11/27/18 History Aspirin 81 mg PO DAILY 12/14/14 11/27/18 History Torsemide [Demadex] 20 mg PO DAILY 06/30/16 11/27/18 History Acetaminophen Tab [Tylenol] 650 mg PO Q4H PRN 12/13/17 11/27/18 History Sevelamer [Renvela] 1,600 mg PO TID 12/13/17 11/27/18 History ALPRAZolam [Xanax] 0.25 mg PO HS 11/27/18 11/27/18 History Cholecalciferol (Vitamin D3) 2,000 unit PO DAILY 11/27/18 11/27/18 History [Vitamin D3] Omeprazole 40 mg PO DAILY 11/27/18 11/27/18 History Allergies Allergy/AdvReac Type Severity Reaction Status Date / Time amoxicillin trihydrate Allergy Anaphylaxis Verified 11/27/18 07:59 [From Augmentin] iodine Allergy Anaphylaxis Verified 11/27/18 07:59 menthol Allergy Unknown Verified 11/27/18 07:59 potassium clavulanate Allergy Anaphylaxis Verified 11/27/18 07:59 [From Augmentin] sulfasalazine Allergy Unknown Verified 11/27/18 07:59 [From Azulfidine] Physical Exam Vitals: Vital Signs Temp Pulse Resp BP Pulse Ox 11/28/18 12:27 97.8 F 65 18 149/86 95 11/28/18 05:00 98.0 F 82 18 131/77 94 L 11/27/18 23:00 97.9 F 63 18 147/80 95 Intake and Output 11/28/18 11/28/18 11/28/18 06:59 14:59 22:59 Intake Total 350 Balance 350 Intake: Oral 350 Other: Voiding Method Bedside Commode # Voids 2 3 0 # Bowel Movements 0 Physical Examinations : -Constitutiona : Cooperative , not in acute distress . -HEENT : nech : supple , no Lymphadenopathy , normal thyroid size . eyes : no ptosis , no icterus, no photophobia . -psychatric : alert , oriented X 3 , appropriate affect , intact judgment and insight . -Lymphatic : no Lymphadenopathy . - musculoskeltal : Lumber spine moter stegnth lower extremities ,thigh and legs 4/5 Right side , 4/5 Left side deep tendon reflexes : normal Knee Jerk , normal ankle Jerk positive lumber facet Loading Test Range of motion of the lumbar spine Flexion 30 degrees, extension 10 degrees strait leg raising test negative bilaterally Fabere test negative bilaterally Results CBC & Chem 7: 11/27/18 07:35 11/27/18 07:35 Comments: Computed tomography scan of the lumbar spine= done at [facility] in 11/27/2018 showed hypertrophic facet arthropathy in the lumbar spine and grade 1 spondylolisthesis Assessment and Plan Plan: Assessment and plan=1-acute low back pain, lumbar spondylosis and lumbar facet arthropathy. Patient reported that the current medication is helping her to control her pain for this reason, I recommend to continue the Ultram 50 mg every 6 hours when necessary, Tylenol 650 every 6 hours when necessary, continue dexamethasone as needed, patient currently does not need any interventional pain management, because her pain is under control with medication management, patient can follow-up with the pain clinic when necessary Time with Patient: Greater than 30 PQRS Measure Charge Sheet PQRS Narrative: Smoking Status Former smoker Blood Pressure [Right Arm] 149/86 Blood Pressure 110/61 Pain Intensity [Lower Back] 0 Pain Intensity 0 Pain Scale Used Numeric (1 - 10) Scale Used Numeric (1 - 10) Home Medications: Ambulatory Orders Allopurinol [Zyloprim] 100 mg PO DAILY 12/14/14 Aspirin 81 mg PO DAILY 12/14/14 Torsemide [Demadex] 20 mg PO DAILY 06/30/16 Acetaminophen Tab [Tylenol] 650 mg PO Q4H PRN 12/13/17 Sevelamer [Renvela] 1,600 mg PO TID 12/13/17 ALPRAZolam [Xanax] 0.25 mg PO HS 11/27/18 Cholecalciferol (Vitamin D3) [Vitamin D3] 2,000 unit PO DAILY 11/27/18 Omeprazole 40 mg PO DAILY 11/27/18
[2018-11-28] MEDS: ALPRAZolam 0.25 MG TAB PO SCH (20:49)
[2018-11-29] MEDS: HEPARIN SODIUM,PORCINE 5,000 UNIT/ML 1 ML VIAL SQ SCH ×2 (00:04→08:38)
[2018-11-29] MEDS: PANTOPRAZOLE 40 MG TABLET PO SCH (08:38)
[2018-11-29] MEDS: TORSEMIDE 20 MG TAB PO SCH (08:38)
[2018-11-29] MEDS: CHOLECALCIFEROL 1,000 UNIT TAB PO SCH (08:40)
[2018-11-29] MEDS: DEXAMETHASONE 4 MG TAB PO SCH (08:40)
[2018-11-29] MEDS: ALLOPURINOL 100 MG TAB PO SCH (08:41)
[2018-11-29] MEDS: SEVELAMER 800 MG TAB PO SCH (08:41)
[2018-11-29] MEDS: traMADol 50 MG TAB PO PRN (08:41)
[2018-11-29] MEDS: ASPIRIN 81 MG PO SCH (08:41)
[2018-11-29 12:52] VITALS: RESP 18
--- NOTE | 2018-11-29 13:18 | P.PN ---
Subjective Patient is seen in follow-up for end-stage renal disease. She is maintained on hemodialysis on a Tuesday schedule. Back pain is better. She is ambulating well. Oral intake is good. No vomiting or diarrhea. Vital signs are stable. General: The patient appeared well nourished and normally developed. HEENT: Head exam is unremarkable. Neck is without jugular venous distension. LUNGS: Lungs are clear to auscultation and percussion. Breath sounds decreased. HEART: Rate and Rhythm are regular. First and second heart sounds normal. No murmurs, rubs or gallops. ABDOMEN: Abdominal exam reveals normal bowel sounds. Non-tender and non- distended. No evidence of peritonitis. EXTREMITITES: No clubbing, cyanosis, or edema. Objective - Vital Signs Vital signs: Vital Signs Temp 97.4 F L 11/29/18 12:06 Pulse 61 11/29/18 12:06 Resp 18 11/29/18 12:06 BP 127/70 11/29/18 12:06 Pulse Ox 95 11/29/18 12:06 Intake & Output 11/28/18 11/29/18 11/29/18 18:59 06:59 18:59 Intake Total 300 Balance 300 Intake: Oral 300 Other: Voiding Method Bedside Commode Bedside Commode # Voids 3 2 2 # Bowel Movements 0 - Labs CBC & Chem 7: 11/27/18 07:35 11/27/18 07:35 Assessment and Plan Plan: Assessment: 1. End-stage renal disease maintained on hemodialysis on a Tuesday schedule. 2. Back pain that appears to be musculoskeletal with arthritic changes noted on CAT scan. 3. Chronic kidney disease mineral bone disease maintained on Renvela. 4. Anemia of chronic kidney disease. Hemoglobin at goal. Plan: Patient was seen while undergoing hemodialysis. Next treatment on Tuesday. Stable to be discharged home from nephrology standpoint.
--- NOTE | 2018-11-29 14:00 | P.DS ---
Providers Date of admission: 11/27/18 13:22 Expected date of discharge: 11/29/18 Attending physician: Parth Damian Consults: 11/27/18 14:31 Consult Physician Routine Consulting Provider: Luis Carlos Castaneda Consult Reason/Comments: Back pain, radiculopathy Do you want consulting provider notified?: Yes 11/27/18 17:09 Consult to Anesthesia Routine Consulting Provider: Anesthesia,Services Consult Reason/Comments: Low back pain with radiculopathy 11/28/18 10:54 Consult Physician Routine Consulting Provider: Jalil Monroy Consult Reason/Comments: hemodialysis. 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 Patient is continue with her hemodialysis on Wednesdays and Fridays at her next scheduled appointment is on Tuesday this week. Patient is to follow-up with pain management clinic as needed. History of present illness This is a 67-year-old female was having some right-sided lower back pain and was being closely monitored. Pain management was consulted and patient is stable to follow-up in the outpatient setting as needed. PT/OT was following the patient and working with the patient. Patient was able to ambulate after pain control with no difficulties. Patient denies any chest pain, shortness of breath, or palpitations at this time. Patient denies any nausea or vomiting and has been tolerating diet. She has been afebrile. Patient received dialysis this morning as she is on a Tuesday/Tuesday/Tuesday schedule. Patient is eager to go home and awaiting for her daughter to pick her up. Patient is currently stable with much improvement. Guarded prognosis. On exam vital signs are stable. Temp is 97.5F, blood pressure is 116/55, respirations are 20, pulse is 49, oxygen saturation is 95% on room air. Cardio S1 and S2 are normal. Respiratory system is clear to auscultation. Abdomen is soft, obese, and non-tender. Nervous system shows no focal deficits and gait is steady. Please refer to medication reconciliation sheet for a list of medications. Patient Condition at Discharge: Stable Plan - Discharge Summary Discharge Rx Participant: No New Discharge Prescriptions: New Dexamethasone [Hexadrol] 4 mg PO TID PRN #15 tab PRN Reason: Pain Acetaminophen Tab [Tylenol] 650 mg PO Q4H PRN #60 tab PRN Reason: Pain traMADol HCl [Ultram] 50 mg PO TID #30 tab Continue Allopurinol [Zyloprim] 100 mg PO DAILY Aspirin 81 mg PO DAILY Torsemide [Demadex] 20 mg PO DAILY Acetaminophen Tab [Tylenol] 650 mg PO Q4H PRN PRN Reason: Pain Sevelamer [Renvela] 1,600 mg PO TID ALPRAZolam [Xanax] 0.25 mg PO HS Omeprazole 40 mg PO DAILY Cholecalciferol (Vitamin D3) [Vitamin D3] 2,000 unit PO DAILY Discharge Medication List Allopurinol [Zyloprim] 100 mg PO DAILY 12/14/14 [History] Aspirin 81 mg PO DAILY 12/14/14 [History] Torsemide [Demadex] 20 mg PO DAILY 06/30/16 [History] Acetaminophen Tab [Tylenol] 650 mg PO Q4H PRN 12/13/17 [History] Sevelamer [Renvela] 1,600 mg PO TID 12/13/17 [History] ALPRAZolam [Xanax] 0.25 mg PO HS 11/27/18 [History] Cholecalciferol (Vitamin D3) [Vitamin D3] 2,000 unit PO DAILY 11/27/18 [History] Omeprazole 40 mg PO DAILY 11/27/18 [History] Acetaminophen Tab [Tylenol] 650 mg PO Q4H PRN #60 tab 11/29/18 [Rx] Dexamethasone [Hexadrol] 4 mg PO TID PRN #15 tab 11/29/18 [Rx] traMADol HCl [Ultram] 50 mg PO TID #30 tab 11/29/18 [Rx] Follow up Appointment(s)/Referral(s): Anurag Barrett PAC [PHYSICIAN PLAN CHECKER] - As Needed (Patient may follow-up with Anurag Barrett PA-C or Dr. Derek Castaneda at [facility] on an as-needed basis following discharge. ) Stef Atkins MD [STAFF PHYSICIAN] - 12/07/18 2:00 pm [facility], [NON-STAFF] - Marisela Hoyt MD [Primary Care Provider] - 1-2 days (Please call and schedule appointment) Patient Instructions/Handouts: Acute Low Back Pain (GEN) Activity/Diet/Wound Care/Special Instructions: Activity limited until follow-up continue current diet follow up with dialysis on Tuesday follow up with primary care provider this week. Discharge Disposition: HOME SELF-CARE
[2018-11-29 14:53] VITALS: BP 126/86; PULSE 76; TEMP 97.8
== END 2018-11-29 14:55 | disposition home or self-care (01) ==
LOC: EC 07:18 → 4MS4W 13:22
PROVIDERS: ADMIT Internal Medicine; ATTEND Internal Medicine
DX: M51.06 Intervertebral disc disorders with myelopathy, lumbar region (principal); M51.16 Intervertebral disc disorders with radiculopathy, lumbar region; M50.00 Cervical disc disorder with myelopathy, unspecified cervical region; M50.10 Cervical disc disorder with radiculopathy, unspecified cervical region; I13.11 Hypertensive heart and chronic kidney disease without heart failure, with stage 5 chronic kidney disease, or end stage renal disease; N18.6 End stage renal disease; Z99.2 Dependence on renal dialysis; K21.9 Gastro-esophageal reflux disease without esophagitis; F41.9 Anxiety disorder, unspecified; E66.9 Obesity, unspecified; Z68.41 Body mass index [BMI] 40.0-44.9, adult; D63.1 Anemia in chronic kidney disease; M89.8X9 Other specified disorders of bone, unspecified site; Q60.0 Renal agenesis, unilateral; M10.9 Gout, unspecified; E78.5 Hyperlipidemia, unspecified; M47.26 Other spondylosis with radiculopathy, lumbar region; M46.96 Unspecified inflammatory spondylopathy, lumbar region; M43.16 Spondylolisthesis, lumbar region; X50.0XXA Overexertion from strenuous movement or load, initial encounter; Y92.009 Unspecified place in unspecified non-institutional (private) residence as the place of occurrence of the external cause; H91.93 Unspecified hearing loss, bilateral; Z87.19 Personal history of other diseases of the digestive system; Z85.828 Personal history of other malignant neoplasm of skin; Z87.440 Personal history of urinary (tract) infections; Z97.4 Presence of external hearing-aid; Z87.891 Personal history of nicotine dependence; Z79.899 Other long term (current) drug therapy; Z79.82 Long term (current) use of aspirin; Z88.0 Allergy status to penicillin; Z88.8 Allergy status to other drugs, medicaments and biological substances; Z91.048 Other nonmedicinal substance allergy status; Z82.5 Family history of asthma and other chronic lower respiratory diseases; Z82.49 Family history of ischemic heart disease and other diseases of the circulatory system; Z80.9 Family history of malignant neoplasm, unspecified
CPT/HCPCS: 96372 ×3; 96376; 96374; 96375; 99285; 36415; 97162; 97165; 80053; 83735; 85025; 72131; G0257 ×2; G0378 ×3; J8540 ×3; J2060; J1644 ×3; J3010; 90935

== ENCOUNTER → 2019-11-14 | Outpatient (CLI) | payer MEDICARE, OTHER ==
--- NOTE | 2019-11-15 07:11 | US ---
EXAMINATION TYPE: US gallbladder DATE OF EXAM: 11/14/2019 COMPARISON: MRI 2012 CLINICAL HISTORY: K80.20 CHOLELITHIASIS. Patient stated has bilateral UQ pain; renal dialysis patient with history of atrophied right kidney; blood in stool and scheduled for colonoscopy this week. EXAM MEASUREMENTS: Liver Length: 17.2 cm Gallbladder Wall: 0.2 cm CBD: 0.2 cm Right Kidney: 6.1 x 3.3 x 1.9 cm Pancreas: hyperechoic with tail obscured by bowel gas Liver: attenuated posteriorly, hyperechoic suggests fatty liver Gallbladder: wnl Evidence for sonographic Cote's sign: wnl CBD: wnl Right Kidney: small for size and per patient history Visualized pancreas is heterogeneous. Evaluation suboptimal as Portions obscured by overlying bowel g as on images saved. The visualized liver is heterogeneously hyperechoic. Evaluation for focal masses suboptimal due to the heterogeneity. Gallbladder seen without gallstones. Atrophied right kidney rede monstrated. IMPRESSION: No gallstones or ultrasound evidence for acute cholecystitis. New fatty infiltration of l iver is suspected, correlate clinically.
== END | disposition home or self-care (01) ==
LOC: RADUSWWP 15:50
PROVIDERS: ATTEND Surgery
DX: K80.20 Calculus of gallbladder without cholecystitis without obstruction (principal)
CPT/HCPCS: 76705

== ENCOUNTER 2019-11-16 09:22 | Day surgery (SDC) | payer MEDICARE, OTHER ==
[2019-11-15 10:33] VITALS: BMI 40.6
[~2019-11-16 09:22] MED LIST: LACTATED RINGERS 1,000 ML IV SCH; LIDOCAINE 1% (10MG/ML) FOR IV START INTRADERMA PRN
[2019-11-16 09:55] VITALS: TEMP 97.7
--- NOTE | 2019-11-16 10:32 | P.GSHP ---
History of Present Illness H&P Date: 11/16/19 Chief Complaint: GI bleed This 68-year-old female presents today for colonoscopy. She's been issues with GI bleed. Past Medical History Past Medical History: Cancer, Dialysis, GERD/Reflux, GI Bleed, Hearing Disorder / Deafness, Renal Disease Additional Past Medical History / Comment(s): ESRD with hemodialysis TU,Th,Sa mineral bone disease, mild heart enlargement, skin cancer removed from nose, lower GI bleed years ago, UTI, [place] bilaterally with hearing aides. History of Any Multi-Drug Resistant Organisms: None Reported Past Surgical History: Appendectomy, Joint Replacement, Tonsillectomy Additional Past Surgical History / Comment(s): LA fistula, colonoscopy, skin cancer removed from nose, total left knee arthroplasty Past Anesthesia/Blood Transfusion Reactions: Previous Problems w/ Anesthesia Additional Past Anesthesia/Blood Transfusion Reaction / Comment(s): Difficulty w aking Smoking Status: Former smoker - Past Family History Mother Family Medical History: COPD Additional Family Medical History / Comment(s): Heart issues Father Family Medical History: Cancer Additional Family Medical History / Comment(s): Unknown CA Medications and Allergies Home Medications Medication Instructions Recorded Confirmed Type Aspirin 81 mg PO DAILY 12/14/14 11/16/19 History allopurinoL [Zyloprim] 100 mg PO DAILY 12/14/14 11/16/19 History Sevelamer [Renvela] 800 mg PO TID 12/13/17 11/16/19 History Omeprazole 40 mg PO DAILY 11/27/18 11/16/19 History Furosemide [Lasix] 20 mg PO DAILY 11/15/19 11/16/19 History HYDROcodone/APAP 5-325MG [Levan 1 tab PO DAILY PRN 11/15/19 11/16/19 History 5-325] Metoprolol Tartrate [Lopressor] 25 mg PO DIRECTED PRN 11/15/19 11/16/19 History Allergies Allergy/AdvReac Type Severity Reaction Status Date / Time amoxicillin trihydrate Allergy Anaphylaxis Verified 11/15/19 10:18 [From Augmentin] iodine Allergy Anaphylaxis Verified 11/15/19 10:18 menthol Allergy Unknown Verified 11/15/19 10:18 potassium clavulanate Allergy Anaphylaxis Verified 11/15/19 10:18 [From Augmentin] sulfasalazine Allergy Unknown Verified 11/15/19 10:18 [From Azulfidine] Surgical - Exam Vital Signs Temp Pulse Resp BP Pulse Ox 97.7 F 85 18 134/70 95 11/16/19 09:54 11/16/19 09:54 11/16/19 09:54 11/16/19 09:54 11/16/19 09:54 - General well developed, well nourished, no distress - Eyes PERRL - ENT normal pinna - Neck no masses - Respiratory normal expansion - Cardiovascular Rhythm: regular - Abdomen Abdomen: soft, non tender Assessment and Plan Assessment: GI bleed. We'll perform colonoscopy
[2019-11-16] MEDS ORDERED: PROPOFOL 10 MG/ML 20 ML VIAL IV ONE (10:35)
--- NOTE | 2019-11-16 10:55 | P.OP ---
Date of Procedure: 11/16/19 Preoperative Diagnosis: GI bleed Postoperative Diagnosis: Antral gastritis No evidence of hiatal hernia No significant esophagitis Colonic mass at 55 cm pathology pending External hemorrhoids Procedure(s) Performed: Colonoscopy Anesthesia: MAC Pathology: other (Antrum) Condition: stable Disposition: PACU Description of Procedure: The patient's placed on the endoscopy table in the lateral position. She received IV sedation. The gastroscope placed oropharynx and passed the esophagus and stomach. Scope was then placed through the pylorus. The first and second portion of the duodenum appeared normal. Scope was then brought back the antrum this. Mildly inflamed. A biopsy was performed. The remainder some appeared normal. There is no significant ulceration. The scope was retroflexed there was no hiatal hernia seen the GE junction was at 40 cm. The distal esophagus appeared normal. The proximal esophagus appeared normal. Scope was withdrawn for patient. Next digital rectal exam was performed, there were minimal external hemorrhoids. Flexible colonoscope was then placed patient anus and passed with colon. At the 55 cm doris there was a very large colonic mass seen this was obstructing 90% luminal lumen. The scope could not be passed beyond it. The mass was biopsied. The mass was then tattooed just distally to the mass. Scope was withdrawn. There a few scattered diverticuli. Scope was brought back the rectum and this appeared normal. Scope was withdrawn for patient.
[2019-11-16 12:06] VITALS: BP 108/70; PULSE 66; RESP 20
--- NOTE | 2019-11-20 09:30 | CDI ---
Date: 11.20.2019 CDS/Technologist Development Name: Hanna Morrissey Phone: If any questions, call Cheli Clifton [employer] at [phone] Patient Name: Priyanka Sharma Admit Date 11.16.19 Discharge Date: 11.16.19 ATTENTION: The [facility] Coding Staff appreciate your assistance in clarifying documentation. Please respond to the clarification below the line at the bottom and electronically sign. The [facility] Coding staff will review the response and follow-up if needed. Please note: Queries are made part of the Legal Health Record. If you have any questions, please contact the [employer] [facility] [employer]. Dear Dr. Corley On the colonoscopy you documented that at the 55 cm doris there was a mass and the scope could not pass beyond it. Please document to what site the colonoscope reached rectum, sigmoid, splenic etc. Thank you for your kind consideration. Colonoscopy to descending colon MTDD
== END 2019-11-16 12:06 | disposition home or self-care (01) ==
LOC: ORWHC2ENDO 09:22
PROVIDERS: ATTEND Surgery
DX: C18.9 Malignant neoplasm of colon, unspecified (principal); K63.3 Ulcer of intestine; K64.4 Residual hemorrhoidal skin tags; K29.51 Unspecified chronic gastritis with bleeding; K21.9 Gastro-esophageal reflux disease without esophagitis; N18.6 End stage renal disease; M89.9 Disorder of bone, unspecified; E83.9 Disorder of mineral metabolism, unspecified; I51.7 Cardiomegaly; H91.93 Unspecified hearing loss, bilateral; Z99.2 Dependence on renal dialysis; Z85.828 Personal history of other malignant neoplasm of skin; Z87.19 Personal history of other diseases of the digestive system; Z87.440 Personal history of urinary (tract) infections; Z97.4 Presence of external hearing-aid; Z90.49 Acquired absence of other specified parts of digestive tract; Z96.652 Presence of left artificial knee joint; Z90.89 Acquired absence of other organs; Z98.890 Other specified postprocedural states; Z91.89 Other specified personal risk factors, not elsewhere classified; Z87.891 Personal history of nicotine dependence; Z79.82 Long term (current) use of aspirin; Z79.899 Other long term (current) drug therapy; Z88.0 Allergy status to penicillin; Z91.048 Other nonmedicinal substance allergy status; Z88.8 Allergy status to other drugs, medicaments and biological substances; Z88.2 Allergy status to sulfonamides; Z97.2 Presence of dental prosthetic device (complete) (partial); Z82.5 Family history of asthma and other chronic lower respiratory diseases; Z82.49 Family history of ischemic heart disease and other diseases of the circulatory system; Z80.9 Family history of malignant neoplasm, unspecified
CPT/HCPCS: 43239; 88305; 45331; 45335; J2704; 45380; 45381

== ENCOUNTER → 2019-11-23 | Outpatient (CLI) | payer MEDICARE, OTHER ==
[2019-11-23 14:04] LABS: HCT 33.9 % (34.0-46.0); HGB 10.6 gm/dL (11.4-16.0); Hypochromasia Slight; MCH 30.7 pg (25.0-35.0); MCHC 31.3 g/dL (31.0-37.0); Mean Platelet Volume 7.4; Platelet Count 107 k/uL (150-450); Potassium 4.6 mmol/L (3.5-5.1); RBC 3.46 m/uL (3.80-5.40); WBC 6.4 k/uL (3.8-10.6)
== END | disposition home or self-care (01) ==
LOC: LABPAT 12:34
PROVIDERS: ATTEND Surgery
DX: Z01.818 Encounter for other preprocedural examination (principal); C18.9 Malignant neoplasm of colon, unspecified
CPT/HCPCS: 36415; 80051; 85027; 86850; 86900; 86901; 93005

== ENCOUNTER 2019-12-05 10:00 | Inpatient (IN) | payer MEDICARE ==
[2019-11-27 16:22] VITALS: BMI 38.7
[~2019-12-05 10:00] MED LIST changes: +ACETAMINOPHEN TAB 500 MG TAB ONE; +ACETAMINOPHEN TAB 500 MG TAB PO ONE; +DEXAMETHASONE SOD PHOSPHATE 10 MG/ML 1 ML VIAL IV ONE; +HEPARIN SODIUM,PORCINE 5,000 UNIT/ML 1 ML VIAL ONE; +HEPARIN SODIUM,PORCINE 5,000 UNIT/ML 1 ML VIAL SQ ONE; -LACTATED RINGERS 1,000 ML IV SCH; +MIDAZOLAM 2 MG/2 ML VIAL IV PRN; +ONDANSETRON 4 MG/2 ML VIAL IVP ONE; +ONDANSETRON 4 MG/2 ML VIAL ONE
--- NOTE | 2019-12-05 10:42 | P.GSHP ---
History of Present Illness H&P Date: 12/05/19 Chief Complaint: Left colon cancer This is a 69-year-old female presents today for left colectomy. Patient recently diagnosed with left colon cancer. Patient rather risk of colostomy. Past Medical History Past Medical History: Cancer, Dialysis, GERD/Reflux, GI Bleed, Hearing Disorder / Deafness, Renal Disease Additional Past Medical History / Comment(s): ESRD with hemodialysis T//, mineral bone disease, mild heart enlargement, skin cancer removed from nose, lower GI bleed years ago, UTI, [place] bilaterally with hearing aides, colon cancer History of Any Multi-Drug Resistant Organisms: None Reported Past Surgical History: Appendectomy, Joint Replacement, Tonsillectomy Additional Past Surgical History / Comment(s): LA fistula, colonoscopy, skin cancer removed from nose, total left knee arthroplasty Past Anesthesia/Blood Transfusion Reactions: Previous Problems w/ Anesthesia Additional Past Anesthesia/Blood Transfusion Reaction / Comment(s): Difficulty waking Smoking Status: Former smoker - Past Family History Mother Family Medical History: COPD Additional Family Medical History / Comment(s): Heart issues Father Family Medical History: Cancer Additional Family Medical History / Comment(s): Unknown CA Medications and Allergies Home Medications Medication Instructions Recorded Confirmed Type Aspirin 81 mg PO DAILY 12/14/14 12/05/19 History allopurinoL [Zyloprim] 100 mg PO DAILY 12/14/14 12/05/19 History Sevelamer [Renvela] 800 mg PO TID PRN 12/13/17 12/05/19 History Omeprazole 40 mg PO DAILY 11/27/18 12/05/19 History Furosemide [Lasix] 20 mg PO DAILY 11/15/19 12/05/19 History Metoprolol Tartrate [Lopressor] 25 mg PO DIRECTED PRN 11/15/19 12/05/19 History ALPRAZolam [Xanax] 0.25 mg PO DAILY PRN 11/27/19 11/27/19 History DULoxetine HCL [Cymbalta] 30 mg PO DAILY 11/27/19 11/27/19 History Allergies Allergy/AdvReac Type Severity Reaction Status Date / Time amoxicillin trihydrate Allergy Anaphylaxis Verified 12/05/19 10:24 [From Augmentin] iodine Allergy Anaphylaxis Verified 12/05/19 10:24 menthol Allergy Unknown Verified 12/05/19 10:24 potassium clavulanate Allergy Anaphylaxis Verified 12/05/19 10:24 [From Augmentin] sulfasalazine Allergy Unknown Verified 12/05/19 10:24 [From Azulfidine] Surgical - Exam Vital Signs Temp Pulse Resp BP Pulse Ox 97 F L 98 16 138/64 97 12/05/19 10:29 12/05/19 10:29 12/05/19 10:29 12/05/19 10:29 12/05/19 10:29 - General well developed, well nourished, no distress - Eyes PERRL - ENT normal pinna - Neck no masses - Respiratory normal expansion - Cardiovascular Rhythm: regular - Abdomen Morbidly obese Abdomen: soft, non tender Assessment and Plan Assessment: Left colon cancer. We'll perform left colectomy.
[2019-12-05] MEDS ORDERED: SODIUM CHLORIDE 0.9% 1,000 ML IV ONE ×3 (10:43→15:00)
[2019-12-05] MEDS ORDERED: ALVIMOPAN 12 MG CAPSULE PO ONE (10:55)
[2019-12-05 11:00] LABS: Basophils % (A) 0 %; Eosinophils # (A) 0.2 k/uL (0-0.7); Eosinophils % (A) 2 %; HCT 37.2 % (34.0-46.0); HGB 12.3 gm/dL (11.4-16.0); Lymphocytes # (A) 1.4 k/uL (1.0-4.8); Lymphocytes % (A) 17 %; MCH 31.1 pg (25.0-35.0); MCV 94.4 fL (80.0-100.0); Mean Platelet Volume 7.2; Monocytes # (A) 0.3 k/uL (0-1.0); Monocytes % (A) 4 %; Neutrophils # (A) 6.1 k/uL (1.3-7.7); Neutrophils % (A) 75 %; Platelet Count 128 k/uL (150-450); RBC 3.94 m/uL (3.80-5.40); RDW 13.8 % (11.5-15.5); WBC 8.1 k/uL (3.8-10.6)
[2019-12-05] MEDS: CLINDAMYCIN 900 MG in DEXTROSE 5% IN WATER 50 ML IVPB ONE ×4 (11:04→11:51)
[2019-12-05] MEDS ORDERED: ROCURONIUM BROMIDE 10 MG/ML 5 ML VIAL IV ONE (11:09)
[2019-12-05] MEDS ORDERED: LIDOCAINE 1% INJ 10MG/ML (20 ML MDV) ONE (11:09)
[2019-12-05] MEDS ORDERED: GLYCOPYRROLATE 0.2 MG/ML 2 ML VIAL ONE (11:09)
[2019-12-05] MEDS ORDERED: PHENYLEPHRINE-0.9% NACL SYG 1 MG/10 ML SYRINGE ONE (11:09)
[2019-12-05] MEDS ORDERED: fentaNYL (PF) 50 MCG/ML 2 ML AMP ONE (11:09)
[2019-12-05] MEDS ORDERED: PROPOFOL 10 MG/ML 20 ML VIAL IV ONE (11:09)
[2019-12-05] MEDS ORDERED: NALOXONE 0.4 MG/ML 1 ML VIAL ONE (11:09)
[2019-12-05] MEDS ORDERED: ePHEDrine SULFATE/0.9% NACL/PF 50 MG/5 ML SYRINGE IV ONE (11:09)
[2019-12-05] MEDS ORDERED: NEOSTIGMINE 1 MG/ML 10 ML VIAL ONE (11:09)
[2019-12-05 11:10] LABS: Potassium 3.2 mmol/L (3.5-5.1)
[2019-12-05] MEDS: GENTAMICIN 320 MG in SODIUM CHLORIDE 0.9% 100 ML IVPB ONE ×2 (11:13→11:51)
[2019-12-05] MEDS ORDERED: ONDANSETRON 4 MG/2 ML VIAL IVP PRN (13:03)
[2019-12-05] MEDS ORDERED: BENZOCAINE/MENTHOL LOZENG 1 EACH LOZENGE MUCOUS MEM PRN (13:03)
--- NOTE | 2019-12-05 13:19 | P.OP ---
Date of Procedure: 12/05/19 Preoperative Diagnosis: Left colon cancer Postoperative Diagnosis: Left colon cancer Procedure(s) Performed: Left colectomy Partial omentectomy Takedown of splenic flexure Anesthesia: MOSES Surgeon: El Corley Estimated Blood Loss (ml): 250 Pathology: other (Left colon, omentum) Condition: stable Disposition: PACU Description of Procedure: DESCRIPTION OF PROCEDURE: The patient was placed in the operative table in the supine position. She received general anesthesia. She was then placed in the dorsal lithotomy position. Her abdomen was prepped and draped usual sterile fashion. The abdomen was entered through a low midline incision. The Bookwalter tract with wound. The colon was explored. The colon had previously tattooed. The tattoo was just distal to the splenic flexure. At this point the incision was lengthened. In the Bookwalter retractor was the position. The white line of Toldt was divided in the left colon was mobilized. The sigmoid colon was mobilized. And then the splenic flexure was mobilized. The omentum was then transected off of the colon.. Portion of omentum was sent to pathology. The colon was then transected proximally distally with a GI stapler. Using incentive device the mesentery the bowel was divided and the specimens of pathology. And then using the GIGI and TA stapler a [id number] functional end-to-end staple anastomosis was created. A 3-0 GI silk suture was used as a crotch stitch. The abdomen was irrigated there is no bleeding seen. The fascia was closed with looped #1 PDS suture. Skin was closed franky. Patient was sent to recovery room in stable condition.
[2019-12-05] MEDS: HYDROmorphone 0.5 MG/0.5 ML SYRINGE IVP PRN ×2 (14:45→14:57)
[2019-12-05] MEDS: LACTATED RINGERS 1,000 ML IV SCH (14:45)
[2019-12-05] MEDS: D5-0.45% NACL WITH KCL 20MEQ/L 1,000 ML IV SCH ×2 (14:45→18:13)
[2019-12-05] MEDS ORDERED: SEVELAMER 800 MG TAB PO PRN (15:03)
[2019-12-05] MEDS ORDERED: ALPRAZolam 0.25 MG TAB PO PRN (15:03)
[2019-12-05] MEDS ORDERED: METOPROLOL TARTRATE 25 MG TAB PO PRN (15:03)
--- NOTE | 2019-12-05 15:50 | P.CONS ---
History of Present Illness - Reason for Consult colon cancer, end-stage renal disease - History of Present Illness pleasant 69-year-old female was admitted elective left colectomy and partial omentectomy for colon cancer. Unsure whether this metastatic colon cancer. Patient postoperatively is doing fairly well. Denied any fever chills nausea vomiting abdominal pain patient is still coming out of anesthesia because of which I am unable to get the clear history from her. Review of Systems all other review of systems is negative except those mentioned above Past Medical History Past Medical History: Cancer, Dialysis, GERD/Reflux, GI Bleed, Hearing Disorder / Deafness, Renal Disease Additional Past Medical History / Comment(s): ESRD with hemodialysis T//, mineral bone disease, mild heart enlargement, skin cancer removed from nose, lower GI bleed years ago, UTI, [place] bilaterally with hearing aides, colon cancer History of Any Multi-Drug Resistant Organisms: None Reported Past Surgical History: Appendectomy, Joint Replacement, Tonsillectomy Additional Past Surgical History / Comment(s): LA fistula, colonoscopy, skin cancer removed from nose, total left knee arthroplasty Past Anesthesia/Blood Transfusion Reactions: Previous Problems w/ Anesthesia Additional Past Anesthesia/Blood Transfusion Reaction / Comm: Difficulty waking Smoking Status: Former smoker - Past Family History Mother Family Medical History: COPD Additional Family Medical History / Comment(s): Heart issues Father Family Medical History: Cancer Additional Family Medical History / Comment(s): Unknown CA Medications and Allergies Home Medications Medication Instructions Recorded Confirmed Type Aspirin 81 mg PO DAILY 12/14/14 12/05/19 History allopurinoL [Zyloprim] 100 mg PO DAILY 12/14/14 12/05/19 History Sevelamer [Renvela] 800 mg PO TID PRN 12/13/17 12/05/19 History Omeprazole 40 mg PO DAILY 11/27/18 12/05/19 History Furosemide [Lasix] 20 mg PO DAILY 11/15/19 12/05/19 History Metoprolol Tartrate [Lopressor] 25 mg PO DIRECTED PRN 11/15/19 12/05/19 History ALPRAZolam [Xanax] 0.25 mg PO DAILY PRN 11/27/19 11/27/19 History DULoxetine HCL [Cymbalta] 30 mg PO DAILY 11/27/19 11/27/19 History Allergies Allergy/AdvReac Type Severity Reaction Status Date / Time amoxicillin trihydrate Allergy Anaphylaxis Verified 12/05/19 10:24 [From Augmentin] iodine Allergy Anaphylaxis Verified 12/05/19 10:24 menthol Allergy Unknown Verified 12/05/19 10:24 potassium clavulanate Allergy Anaphylaxis Verified 12/05/19 10:24 [From Augmentin] sulfasalazine Allergy Unknown Verified 12/05/19 10:24 [From Azulfidine] Physical Exam Vitals: Vital Signs Temp Pulse Resp BP Pulse Ox 12/05/19 15:05 98 16 131/62 97 12/05/19 14:45 99 16 135/64 94 L 12/05/19 14:25 99 16 122/60 99 12/05/19 14:08 97 24 125/59 97 12/05/19 13:53 97.4 F L 96 14 120/56 100 12/05/19 10:29 97 F L 98 16 138/64 97 Intake and Output 12/05/19 12/05/19 12/05/19 06:59 14:59 22:59 Intake Total 714 225 Output Total 300 2 Balance 414 223 Intake: IV 714 225 Output: Urine 0 2 Estimated Blood Loss 300 Other: Weight 95.9 kg PHYSICAL EXAMINATION: GENERAL: The patient is drowsy and oriented x3, not in any acute distress. Well developed, well nourished. HEENT: Pupils are round and equally reacting to light. EOMI. No scleral icterus. No conjunctival pallor. Normocephalic, atraumatic. No pharyngeal erythema. No thyromegaly. CARDIOVASCULAR: S1 and S2 present. No murmurs, rubs, or gallops. PULMONARY: Chest is clear to auscultation, no wheezing or crackles. ABDOMEN: Soft, nontender, nondistended, sluggish bowel sounds surgical site area clean MUSCULOSKELETAL: No joint swelling or deformity. EXTREMITIES: No cyanosis, clubbing, or pedal edema. NEUROLOGICAL: Gross neurological examination did not reveal any focal deficits. SKIN: No rashes. Results CBC & Chem 7: 12/05/19 10:38 12/05/19 10:38 Labs: Abnormal Lab Results - Last 24 Hours (Table) 12/05/19 12/05/19 Range/Units 10:38 10:38 Plt Count 128 L (150-450) k/uL Potassium 3.2 L (3.5-5.1) mmol/L BUN 20 H (7-17) mg/dL Creatinine 4.98 H (0.52-1.04) mg/dL Assessment and Plan Plan: -colon cancer: Chest patient is status post left colectomy with partial omente ctomy postoperatively patient is pain-free at this time. Recommend to avoid morphine , patient is presently on Dilaudid. -End-stage renal disease or dialysis dependent nephrology will be consulted and patient will be resumed on her regular hemodialysis sessions patient was started on D5 half-normal with 20 mEq of potassium at 1 25 mL/h which will be cut down to only 50 mL per hour because of her end-stage renal disease -gases visual reflux disease -Anxiety disorder/depression -hypertension for above-mentioned chronic medical problems patient will be resumed on appropriate home medications.
[2019-12-05] MEDS: FAMOTIDINE 20 MG/2 ML VIAL IV SCH (20:58)
[2019-12-05] MEDS: HYDROmorphone 1 MG/ML 1 ML SYRINGE IVP PRN ×2 (20:58→23:46)
[2019-12-06] MEDS: D5-0.45% NACL WITH KCL 20MEQ/L 1,000 ML IV SCH (02:32)
[2019-12-06] MEDS: LACTATED RINGERS 1,000 ML IV SCH (02:36)
[2019-12-06] MEDS: HYDROmorphone 1 MG/ML 1 ML SYRINGE IVP PRN ×2 (04:52→08:51)
[2019-12-06 07:48] LABS: Basophils % (A) 0 %; Eosinophils % (A) 0 %; HCT 34.3 % (34.0-46.0); HGB 10.8 gm/dL (11.4-16.0); Hypochromasia Moderate; Lymphocytes # (A) 0.6 k/uL (1.0-4.8); Lymphocytes % (A) 3 %; MCH 30.9 pg (25.0-35.0); MCHC 31.3 g/dL (31.0-37.0); MCV 98.7 fL (80.0-100.0); Mean Platelet Volume 7.4; Monocytes # (A) 0.5 k/uL (0-1.0); Monocytes % (A) 3 %; Neutrophils # (A) 15.8 k/uL (1.3-7.7); Neutrophils % (A) 93 %; Platelet Count 104 k/uL (150-450); RBC 3.48 m/uL (3.80-5.40); RDW 13.9 % (11.5-15.5)
[2019-12-06] MEDS: ALVIMOPAN 12 MG CAPSULE PO SCH ×2 (07:54→20:20)
[2019-12-06] MEDS: allopurinoL 100 MG TAB PO SCH (07:54)
[2019-12-06] MEDS: DULoxetine HCL 30 MG CAPSULE.DR PO SCH (07:54)
[2019-12-06] MEDS: PANTOPRAZOLE 40 MG TABLET PO SCH (07:54)
[2019-12-06] MEDS: ASPIRIN 81 MG PO SCH (07:54)
[2019-12-06] MEDS: FAMOTIDINE 20 MG/2 ML VIAL IV SCH (07:54)
[2019-12-06 08:11] LABS: Calcium 8.6 mg/dL (8.4-10.2); Potassium 4.8 mmol/L (3.5-5.1)
[2019-12-06] MEDS: METOCLOPRAMIDE 5 MG/ML 2 ML VIAL IVP PRN (08:51)
[2019-12-06] MEDS ORDERED: LEVOFLOXACIN 500MG-D5W PMX 500 MG in DEXTROSE/WATER 1 100ML.BAG IVPB ONE (09:45)
[2019-12-06] MEDS ORDERED: SEVELAMER 800 MG TAB PO SCH (10:45)
--- NOTE | 2019-12-06 11:03 | P.PN ---
Subjective Progress Note Date: 12/06/19 CHIEF COMPLAINT: Left colon cancer HISTORY OF PRESENT ILLNESS: Patient with known left colon cancer status post left colectomy, partial omentectomy and takedown of splenic flexure. Patient is having some diffuse abdominal pain with nausea. She is due for pain medication and nausea medication this morning. She denies any gas or passing bowel movements. Denies any vomiting. She is currently tolerating a clear liquid diet. She is afebrile. WBC 17 hemoglobin 10.8. She has history of end-stage renal disease nephrology on consult PHYSICAL EXAM: VITAL SIGNS: Reviewed. GENERAL: Well-developed in no acute distress. HEENT: No sclera icterus. Extraocular movements grossly intact. Moist buccal mucosa. Head is atraumatic, normocephalic. ABDOMEN: Soft. Nondistended. Mild diffuse tenderness to palpation, dressing clean dry and intact NEUROLOGIC: Alert and oriented. Cranial nerves II through XII grossly intact. ASSESSMENT: 1. Left colon cancer: Status post left colectomy, partial laminectomy and take down of splenic flexure POD #1 PLAN: -Continue clear liquid diet -Continue IV fluid -Continue antibiotics -Continue pain medication and antiemetics -Nephrology on consult for end-stage renal disease -Medicine consulted for medical management -GI prophylaxis Protonix and DVT prophylaxis SC Heparin Physician Calf Skinner note has been reviewed by physician. Signing provider agrees with the documented findings, assessment, and plan of care. Objective - Vital Signs Vital signs: Vital Signs Temp 98.1 F 12/06/19 07:00 Pulse 93 12/06/19 07:00 Resp 18 12/06/19 07:00 BP 120/75 12/06/19 07:00 Pulse Ox 92 L 12/06/19 07:00 Intake & Output 12/05/19 12/06/19 12/06/19 18:59 06:59 18:59 Intake Total 939 700 770 Output Total 302 300 Balance 637 400 770 Weight 95.9 kg Intake: IV 939 400 D5-0.45% NaCl with KCl 400 20Meq/l 1,000 ml @ 50 mls /hr IV .Q20H [facility] Rx#: [id number] Intake, IV Titration 400 50 Amount D5-0.45% NaCl with KCl 400 20Meq/l 1,000 ml @ 50 mls /hr IV .Q20H [facility] Rx#: [id number] Levofloxacin 250Mg-D5w 50 Pmx 250 mg In Dextrose/ Water 1 50ml.bag @ 50 mls /hr IVPB Q48H [facility] Rx#: [id number] Oral 300 320 Output: Urine 2 300 Estimated Blood Loss 300 Other: Voiding Method Indwelling Catheter Indwelling Catheter # Voids 1 - Labs CBC & Chem 7: 12/06/19 07:05 12/06/19 07:05 Labs: Abnormal Lab Results - Last 24 Hours (Table) 12/05/19 12/05/19 12/06/19 Range/Units 10:38 10:38 07:05 WBC 17.0 H (3.8-10.6) k/uL RBC 3.48 L (3.80-5.40) m/uL Hgb 10.8 L (11.4-16.0) gm/dL Plt Count 128 L 104 L (150-450) k/uL Neutrophils # 15.8 H (1.3-7.7) k/uL Lymphocytes # 0.6 L (1.0-4.8) k/uL Sodium (137-145) mmol/L Potassium 3.2 L (3.5-5.1) mmol/L BUN 20 H (7-17) mg/dL Creatinine 4.98 H (0.52-1.04) mg/dL Glucose (74-99) mg/dL 12/06/19 Range/Units 07:05 WBC (3.8-10.6) k/uL RBC (3.80-5.40) m/uL Hgb (11.4-16.0) gm/dL Plt Count (150-450) k/uL Neutrophils # (1.3-7.7) k/uL Lymphocytes # (1.0-4.8) k/uL Sodium 134 L (137-145) mmol/L Potassium (3.5-5.1) mmol/L BUN 29 H (7-17) mg/dL Creatinine 5.98 H (0.52-1.04) mg/dL Glucose 181 H (74-99) mg/dL
[2019-12-06] MEDS: SEVELAMER 800 MG TAB PO SCH ×2 (12:24→16:38)
--- NOTE | 2019-12-06 14:58 | P.PN ---
Subjective Progress Note Date: 12/06/19 Principal diagnosis: - Reason for Consult colon cancer, end-stage renal disease - History of Present Illness pleasant 69-year-old female was admitted elective left colectomy and partial omentectomy for colon cancer. Unsure whether this metastatic colon cancer. Patient postoperatively is doing fairly well. Denied any fever chills nausea vomiting abdominal pain patient is still coming out of anesthesia because of which I am unable to get the clear history from her. 12/06/2019 Patient is seen and evaluated in follow-up status post left colectomy and partial omentectomy postop day #1 with no acute overnight issues. Patient is very lethargic although easily arousable. Patient was having some nausea and is maintained on clear liquid diet with no vomiting noted. Patient continues to use incentive spirometer and instructed to use at least 10 times every hour while awake. Surgical dressing is dry and intact with some mild abdominal discomfort with moving. Awaiting nephrology as patient is maintained on hemodialysis. Review of systems: Constitutional: Reports of fatigue, fever, or chills Cardiovascular: No reports of chest pain or palpitations Respiratory: No reports of shortness of breath or cough GI: Reports mild nausea, no reports of vomiting, or diarrhea : No reports of dysuria or retention Neurovascular: Reports mild weakness , no reports of numbness All medications have been reviewed Objective - Vital Signs Vital signs: Vital Signs Temp 98.1 F 12/06/19 07:00 Pulse 93 12/06/19 07:00 Resp 18 12/06/19 07:00 BP 120/75 12/06/19 07:00 Pulse Ox 92 L 12/06/19 07:00 Intake & Output 12/05/19 12/06/19 12/06/19 18:59 06:59 18:59 Intake Total 939 700 770 Output Total 302 300 Balance 637 400 770 Weight 95.9 kg Intake: IV 939 400 D5-0.45% NaCl with KCl 400 20Meq/l 1,000 ml @ 50 mls /hr IV .Q20H [facility] Rx#: [id number] Intake, IV Titration 400 50 Amount D5-0.45% NaCl with KCl 400 20Meq/l 1,000 ml @ 50 mls /hr IV .Q20H [facility] Rx#: [id number] Levofloxacin 250Mg-D5w 50 Pmx 250 mg In Dextrose/ Water 1 50ml.bag @ 50 mls /hr IVPB Q48H [facility] Rx#: [id number] Oral 300 320 Output: Urine 2 300 Estimated Blood Loss 300 Other: Voiding Method Indwelling Catheter Indwelling Catheter # Voids 1 - Exam GENERAL: The patient is lethargic, but easily arousable, alert and oriented x3, not in any acute distress. Well developed, well nourished. HEENT: Pupils are round and equally reacting to light. EOMI. No scleral icterus. No conjunctival pallor. Normocephalic, atraumatic. No pharyngeal erythema. No thyromegaly. CARDIOVASCULAR: S1 and S2 present. No murmurs, rubs, or gallops. PULMONARY: Diminished breath sounds bilaterally otherwise Chest is clear to auscultation, no wheezing or crackles. ABDOMEN: Soft, nontender, nondistended, positive bowel sounds, surgical site area clean MUSCULOSKELETAL: No joint swelling or deformity. EXTREMITIES: No cyanosis, clubbing, or pedal edema. NEUROLOGICAL: Gross neurological examination did not reveal any focal deficits. SKIN: No rashes. - Labs CBC & Chem 7: 12/06/19 07:05 12/06/19 07:05 Labs: Abnormal Lab Results - Last 24 Hours (Table) 12/06/19 12/06/19 Range/Units 07:05 07:05 WBC 17.0 H (3.8-10.6) k/uL RBC 3.48 L (3.80-5.40) m/uL Hgb 10.8 L (11.4-16.0) gm/dL Plt Count 104 L (150-450) k/uL Neutrophils # 15.8 H (1.3-7.7) k/uL Lymphocytes # 0.6 L (1.0-4.8) k/uL Sodium 134 L (137-145) mmol/L BUN 29 H (7-17) mg/dL Creatinine 5.98 H (0.52-1.04) mg/dL Glucose 181 H (74-99) mg/dL Assessment and Plan Assessment: -colon cancer: status post left colectomy with partial omentectomy postop day #1 -End-stage renal disease or dialysis dependent, nephrology following and patient will have hemodialysis today -Gastro-Esophageal reflux disease -Anxiety disorder/depression -hypertension for above-mentioned chronic medical problems patient will be resumed on appropriate home medications. Plan: To continue current medications, management, and symptomatic treatment. Will continue to follow along with surgery. Nephrology planning on hemodialysis today and will continue with scheduled. Will repeat a.m. labs. Instructed the patient increase activity as tolerated and continue to use incentive spirometer at least 10 times every hour while awake. Patient is maintained on clear liqu ids and will continue at this time. Further recommendations to follow.
--- NOTE | 2019-12-06 15:29 | P.NPCON ---
History of Present Illness - Reason for Consult end stage renal disease - History of Present Illness Reason for consultation: End-stage renal disease History of present illness: Patient is a 69-year-old female seen in consultation for end-stage renal disease. She is maintained on hemodialysis on Tuesday schedule. Patient has left colon cancer underwent left colectomy, partial omentectomy with takedown of splenic flexure on December 04. She is currently seen while undergoing hemodialysis. Complains of soreness at the surgical site. No fever or chills. No cough. No vomiting or diarrhea. No chest pain or shortness of breath. Blood pressure stable. She is receiving IV fluids. Vital signs are stable. General: The patient appeared well nourished and normally developed. HEENT: Head exam is unremarkable. Neck is without jugular venous distension. LUNGS: Breath sounds decreased. HEART: Rate and Rhythm are regular. ABDOMEN: Surgical abdomen. Generalized tenderness. EXTREMITITES: No clubbing, cyanosis, or edema. Past Medical History Past Medical History: Cancer, Dialysis, GERD/Reflux, GI Bleed, Hearing Disorder / Deafness, Renal Disease Additional Past Medical History / Comment(s): ESRD with hemodialysis //, mineral bone disease, mild heart enlargement, skin cancer removed from nose, lower GI bleed years ago, UTI, [place] bilaterally with hearing aides, colon cancer History of Any Multi-Drug Resistant Organisms: None Reported Past Surgical History: Appendectomy, Joint Replacement, Tonsillectomy Additional Past Surgical History / Comment(s): LA fistula, colonoscopy, skin cancer removed from nose, total left knee arthroplasty Past Anesthesia/Blood Transfusion Reactions: Previous Problems w/ Anesthesia Additional Past Anesthesia/Blood Transfusion Reaction / Comment(s): Difficulty waking Smoking Status: Former smoker - Past Family History Mother Family Medical History: COPD Additional Family Medical History / Comment(s): Heart issues Father Family Medical History: Cancer Additional Family Medical History / Comment(s): Unknown CA Medications and Allergies Home Medications Medication Instructions Recorded Confirmed Type Aspirin 81 mg PO DAILY 12/14/14 12/05/19 History allopurinoL [Zyloprim] 100 mg PO DAILY 12/14/14 12/05/19 History Sevelamer [Renvela] 1,600 mg PO TID PRN 12/13/17 12/06/19 History Omeprazole 40 mg PO DAILY 11/27/18 12/05/19 History Furosemide [Lasix] 20 mg PO DAILY 11/15/19 12/05/19 History Metoprolol Tartrate [Lopressor] 25 mg PO DIRECTED PRN 11/15/19 12/05/19 History ALPRAZolam [Xanax] 0.25 mg PO DAILY PRN 11/27/19 11/27/19 History DULoxetine HCL [Cymbalta] 30 mg PO DAILY 11/27/19 11/27/19 History Allergies Allergy/AdvReac Type Severity Reaction Status Date / Time amoxicillin trihydrate Allergy Anaphylaxis Verified 12/05/19 10:24 [From Augmentin] iodine Allergy Anaphylaxis Verified 12/05/19 10:24 menthol Allergy Unknown Verified 12/05/19 10:24 potassium clavulanate Allergy Anaphylaxis Verified 12/05/19 10:24 [From Augmentin] sulfasalazine Allergy Unknown Verified 12/05/19 10:24 [From Azulfidine] Physical Exam Vitals: Vital Signs Temp Pulse Resp BP Pulse Ox 12/06/19 07:00 98.1 F 93 18 120/75 92 L 12/06/19 01:13 97.5 F L 97 15 106/63 93 L 12/05/19 23:30 18 12/05/19 20:00 95 18 12/05/19 19:00 97.4 F L 95 18 100/58 95 12/05/19 16:14 139/82 12/05/19 15:59 142/84 12/05/19 15:44 132/82 12/05/19 15:30 97.9 F Intake and Output 12/06/19 12/06/19 12/06/19 06:59 14:59 22:59 Intake Total 300 770 Output Total 300 Balance 0 770 Intake: IV 400 D5-0.45% NaCl with KCl 400 20Meq/l 1,000 ml @ 50 mls /hr IV .Q20H [facility] Rx#: [id number] Intake, IV Titration 50 Amount Levofloxacin 250Mg-D5w 50 Pmx 250 mg In Dextrose/ Water 1 50ml.bag @ 50 mls /hr IVPB Q48H [facility] Rx#: [id number] Oral 300 320 Output: Urine 300 Other: Voiding Method Indwelling Catheter Indwelling Catheter # Voids 1 Results - Lab Results Most recent lab results Calcium 8.6 mg/dL (8.4-10.2) 12/06/19 07:05 12/06/19 07:05 12/06/19 07:05 Assessment and Plan Plan: Assessment: 1. End-stage renal disease maintained on hemodialysis on Tuesday schedule. 2. Left colon cancer status post left colectomy, partial omentectomy for takedown of splenic flexure and 12/05/2019. 3. Chronic kidney disease mineral bone disease maintained on Renvela. 4. Hypokalemia, resolved. Plan: Currently seen while undergoing hemodialysis. Next treatment on Tuesday. Hep-Lock IV fluids. Thank you for the consultation. I will continue to follow the patient with you during her hospital stay.
[2019-12-06] MEDS: HEPARIN SODIUM,PORCINE 5,000 UNIT/ML 1 ML VIAL SQ SCH (20:24)
[2019-12-07] MEDS: HYDROmorphone 1 MG/ML 1 ML SYRINGE IVP PRN ×2 (01:29→08:25)
[2019-12-07] MEDS: LACTATED RINGERS 1,000 ML IV SCH (05:59)
[2019-12-07] MEDS: DULoxetine HCL 30 MG CAPSULE.DR PO SCH (08:17)
[2019-12-07] MEDS: PANTOPRAZOLE 40 MG TABLET PO SCH (08:17)
[2019-12-07] MEDS: ALVIMOPAN 12 MG CAPSULE PO SCH ×2 (08:17→21:44)
[2019-12-07] MEDS: ASPIRIN 81 MG PO SCH (08:17)
[2019-12-07] MEDS: allopurinoL 100 MG TAB PO SCH (08:17)
[2019-12-07] MEDS: HEPARIN SODIUM,PORCINE 5,000 UNIT/ML 1 ML VIAL SQ SCH ×2 (08:18→21:44)
[2019-12-07] MEDS: FAMOTIDINE 20 MG/2 ML VIAL IV SCH (08:18)
[2019-12-07 09:51] LABS: Basophils % (A) 0 %; Eosinophils % (A) 0 %; HCT 31.1 % (34.0-46.0); HGB 9.6 gm/dL (11.4-16.0); Hypochromasia Slight; Lymphocytes # (A) 1.3 k/uL (1.0-4.8); Lymphocytes % (A) 11 %; MCH 30.3 pg (25.0-35.0); MCHC 30.8 g/dL (31.0-37.0); MCV 98.5 fL (80.0-100.0); Mean Platelet Volume 7.6; Monocytes # (A) 0.5 k/uL (0-1.0); Monocytes % (A) 5 %; Neutrophils # (A) 9.3 k/uL (1.3-7.7); Neutrophils % (A) 83 %; Platelet Count 113 k/uL (150-450); RBC 3.15 m/uL (3.80-5.40); RDW 14.2 % (11.5-15.5); WBC 11.3 k/uL (3.8-10.6)
[2019-12-07 10:02] LABS: Potassium 4.1 mmol/L (3.5-5.1)
--- NOTE | 2019-12-07 12:10 | P.PN ---
Subjective Patient is seen in follow-up for end-stage renal disease. She is maintained on hemodialysis on Tuesday. He tolerated dialysis well yesterday. Complains of pain at the surgical site. Blood pressure stable. No other complaints. Vital signs are stable. General: The patient appeared well nourished and normally developed. HEENT: Head exam is unremarkable. Neck is without jugular venous distension. LUNGS: Lungs are clear to auscultation and percussion. Breath sounds decreased. HEART: Rate and Rhythm are regular. ABDOMEN: Surgical abdomen. Generalized tenderness. EXTREMITITES: No clubbing, cyanosis, or edema. Objective - Vital Signs Vital signs: Vital Signs Temp 98.2 F 12/07/19 07:00 Pulse 101 H 12/07/19 07:00 Resp 16 12/07/19 07:00 BP 146/80 12/07/19 07:00 Pulse Ox 95 12/07/19 07:00 Intake & Output 12/06/19 12/07/19 12/07/19 18:59 06:59 18:59 Intake Total 770 0 Output Total 1500 Balance -730 0 Intake: IV 400 D5-0.45% NaCl with KCl 400 20Meq/l 1,000 ml @ 50 mls /hr IV .Q20H [facility] Rx#: [id number] Intake, IV Titration 50 0 Amount Lactated Ringers 1,000 ml 0 @ 20 mls/hr IV .Q24H [facility] Rx#:[id number] Levofloxacin 250Mg-D5w 50 Pmx 250 mg In Dextrose/ Water 1 50ml.bag @ 50 mls /hr IVPB Q48H [facility] Rx#: [id number] Oral 320 Output: Hemodialysis 1500 Other: Voiding Method Indwelling Catheter Indwelling Catheter Indwelling Catheter - Labs CBC & Chem 7: 12/07/19 08:47 12/07/19 08:47 Labs: Abnormal Lab Results - Last 24 Hours (Table) 12/07/19 12/07/19 Range/Units 08:47 08:47 WBC 11.3 H (3.8-10.6) k/uL RBC 3.15 L (3.80-5.40) m/uL Hgb 9.6 L (11.4-16.0) gm/dL Hct 31.1 L (34.0-46.0) % MCHC 30.8 L (31.0-37.0) g/dL Plt Count 113 L (150-450) k/uL Neutrophils # 9.3 H (1.3-7.7) k/uL BUN 18 H (7-17) mg/dL Creatinine 4.26 H (0.52-1.04) mg/dL Glucose 127 H (74-99) mg/dL Assessment and Plan Plan: Assessment: 1. End-stage renal disease maintained on hemodialysis on Tuesday schedule. 2. Left colon cancer status post left colectomy, partial omentectomy for takedown of splenic flexure and 12/05/2019. 3. Chronic kidney disease mineral bone disease maintained on Renvela. 4. Hypokalemia, resolved. Plan: Hemodialysis tomorrow. Remains off IV fluids.
--- NOTE | 2019-12-07 13:22 | P.PN ---
Subjective Progress Note Date: 12/07/19 CHIEF COMPLAINT: Left colon cancer HISTORY OF PRESENT ILLNESS: Patient with known left colon cancer status post left colectomy, partial omentectomy and takedown of splenic flexure. Patient is having some diffuse abdominal pain. She denies any nausea or vomiting She denies any gas or passing bowel movements. She is currently tolerating a clear liquid diet. Patient is complaining of difficulty with sleeping. She is afebrile. WBC 17 down to 11.3 hemoglobin 10.8 down to 9.6. She has history of end-stage renal disease had hemodialysis yesterday PHYSICAL EXAM: VITAL SIGNS: Reviewed. GENERAL: Well-developed in no acute distress. HEENT: No sclera icterus. Extraocular movements grossly intact. Moist buccal mucosa. Head is atraumatic, normocephalic. ABDOMEN: Soft. Nondistended. Mild diffuse tenderness to palpation , dressing clean dry and intact NEUROLOGIC: Alert and oriented. Cranial nerves II through XII grossly intact. ASSESSMENT: 1. Left colon cancer: Status post left colectomy, partial laminectomy and take down of splenic flexure POD #2 PLAN: -Continue clear liquid diet -Continue antibiotics -Continue pain medication and antiemetics -Nephrology on consult for end-stage renal disease -GI prophylaxis Protonix and DVT prophylaxis SC Heparin -Xanax dose increased to 0.5 mg at bedtime PRN to help with sleep Physician Forklift Mechanic note has been reviewed by physician. Signing provider agrees with the documented findings, assessment, and plan of care. Objective - Vital Signs Vital signs: Vital Signs Temp 98.0 F 12/07/19 11:55 Pulse 78 12/07/19 11:55 Resp 16 12/07/19 11:55 BP 120/72 12/07/19 11:55 Pulse Ox 95 12/07/19 07:00 Intake & Output 12/06/19 12/07/19 12/07/19 18:59 06:59 18:59 Intake Total 770 0 Output Total 1500 Balance -730 0 Intake: IV 400 D5-0.45% NaCl with KCl 400 20Meq/l 1,000 ml @ 50 mls /hr IV .Q20H [facility] Rx#: [id number] Intake, IV Titration 50 0 Amount Lactated Ringers 1,000 ml 0 @ 20 mls/hr IV .Q24H [facility] Rx#:[id number] Levofloxacin 250Mg-D5w 50 Pmx 250 mg In Dextrose/ Water 1 50ml.bag @ 50 mls /hr IVPB Q48H [facility] Rx#: [id number] Oral 320 Output: Hemodialysis 1500 Other: Voiding Method Indwelling Catheter Indwelling Catheter Indwelling Catheter - Labs CBC & Chem 7: 12/07/19 08:47 12/07/19 08:47 Labs: Abnormal Lab Results - Last 24 Hours (Table) 12/07/19 12/07/19 Range/Units 08:47 08:47 WBC 11.3 H (3.8-10.6) k/uL RBC 3.15 L (3.80-5.40) m/uL Hgb 9.6 L (11.4-16.0) gm/dL Hct 31.1 L (34.0-46.0) % MCHC 30.8 L (31.0-37.0) g/dL Plt Count 113 L (150-450) k/uL Neutrophils # 9.3 H (1.3-7.7) k/uL BUN 18 H (7-17) mg/dL Creatinine 4.26 H (0.52-1.04) mg/dL Glucose 127 H (74-99) mg/dL
--- NOTE | 2019-12-07 14:13 | P.PN ---
Subjective Progress Note Date: 12/07/19 Principal diagnosis: - Reason for Consult colon cancer, end-stage renal disease - History of Present Illness pleasant 69-year-old female was admitted elective left colectomy and partial omentectomy for colon cancer. Unsure whether this metastatic colon cancer. Patient postoperatively is doing fairly well. Denied any fever chills nausea vomiting abdominal pain patient is still coming out of anesthesia because of which I am unable to get the clear history from her. 12/06/2019 Patient is seen and evaluated in follow-up status post left colectomy and partial omentectomy postop day #1 with no acute overnight issues. Patient is very lethargic although easily arousable. Patient was having some nausea and is maintained on clear liquid diet with no vomiting noted. Patient continues to use incentive spirometer and instructed to use at least 10 times every hour while awake. Surgical dressing is dry and intact with some mild abdominal discomfort with moving. Awaiting nephrology as patient is maintained on hemodialysis. Review of systems: Constitutional: Reports of fatigue, fever, or chills Cardiovascular: No reports of chest pain or palpitations Respiratory: No reports of shortness of breath or cough GI: Reports mild nausea, no reports of vomiting, or diarrhea : No reports of dysuria or retention Neurovascular: Reports mild weakness , no reports of numbness All medications have been reviewed 12/07/2019 Patient is seen and evaluated in follow-up and is currently being monitored closely status post left colectomy with partial omentectomy postop day #2. Patient is having some gas although burping with no reports of a bowel movement noted. Patient continues to have some abdominal discomfort and tenderness although surgical incision site looks dry and clean with no surrounding erythema or swelling noted. Patient instructed to continue using incentive spirometer at least 10 times every hour while awake and increase activity as tolerated and sit up in the chair. Patient is currently maintained on clear liquids with no reports of nausea noted. Patient continues on IV antibiotics in the form of Levaquin at this time. Nephrology also following and patient is scheduled to undergo hemodialysis today. Will repeat a.m. labs. We'll continue to follow along closely with surgery. Review of systems: Constitutional: Reports fatigue, no reports of fever, or chills Cardiovascular: No reports of chest pain or palpitations Respiratory: No reports of shortness of breath or cough GI: No reports of nausea, vomiting, or diarrhea : No reports of dysuria or retention Neurovascular: No reports of weakness or numbness All medications have been reviewed Active Medications Allopurinol (Zyloprim) 100 mg PO DAILY [facility] Last Admin: 12/07/19 08:17 Dose: 100 mg Documented by: Alprazolam (Xanax) 0.5 mg PO DAILY PRN PRN Reason: Anxiety Alvimopan (Entereg) 12 mg PO BID [facility] Stop: 12/12/19 21:01 Last Admin: 12/07/19 08:17 Dose: 12 mg Documented by: Aspirin (Aspirin) 81 mg PO DAILY [facility] Last Admin: 12/07/19 08:17 Dose: 81 mg Documented by: Benzocaine/Menthol (Cepacol Lozenge) 1 each MUCOUS MEM Q1HR PRN PRN Reason: Sore Throat Duloxetine HCl (Cymbalta) 30 mg PO DAILY [facility] Last Admin: 12/07/19 08:17 Dose: 30 mg Documented by: Famotidine (Pepcid) 20 mg IV DAILY [facility] Last Admin: 12/07/19 08:18 Dose: 20 mg Documented by: Heparin Sodium (Porcine) (Heparin) 5,000 unit SQ Q12HR [facility] Last Admin: 12/07/19 08:18 Dose: 5,000 unit Documented by: Hydromorphone HCl (Dilaudid) 1 mg IVP Q3HR PRN PRN Reason: Pain Last Admin: 12/07/19 08:25 Dose: 1 mg Documented by: Lactated Ringer's (Lactated Ringers) 1,000 mls @ 20 mls/hr IV .Q24H [facility] Last Admin: 12/07/19 05:59 Dose: Not Given Documented by: Levofloxacin/Dextrose 250 mg/ (IV Solution) 50 mls @ 50 mls/hr IVPB Q48H [facility] Lidocaine HCl (.Xylocaine 1% Inj (10mg/Ml) For Iv Start) 0.1 ml INTRADERMA PER PROTOCOL PRN PRN Reason: IV Start Last Admin: 12/05/19 10:35 Dose: 0.1 ml Documented by: Metoclopramide HCl (Reglan) 10 mg IVP Q6HR PRN PRN Reason: Nausea and Vomiting Last Admin: 12/06/19 08:51 Dose: 10 mg Documented by: Metoprolol Tartrate (Lopressor) 25 mg PO DIRECTED PRN PRN Reason: dialysis days Ondansetron HCl (Zofran) 4 mg IVP Q8HR PRN PRN Reason: Nausea And Vomiting Pantoprazole Sodium (Protonix) 40 mg PO AC-BRKFST [facility] Last Admin: 12/07/19 08:17 Dose: 40 mg Documented by: Sevelamer Carbonate (Renvela) 1,600 mg PO TuThSa@0730 [facility] Sevelamer Carbonate (Renvela) 1,600 mg PO TuThSa@1230 [facility] Last Admin: 12/06/19 12:24 Dose: 1,600 mg Documented by: Sevelamer Carbonate (Renvela) 1,600 mg PO TuThSa@1730 [facility] Last Admin: 12/06/19 16:38 Dose: 1,600 mg Documented by: Objective - Vital Signs Vital signs: Vital Signs Temp 98.2 F 12/07/19 07:00 Pulse 101 H 12/07/19 07:00 Resp 16 12/07/19 07:00 BP 146/80 12/07/19 07:00 Pulse Ox 95 12/07/19 07:00 Intake & Output 12/06/19 12/07/19 12/07/19 18:59 06:59 18:59 Intake Total 770 0 Output Total 1500 Balance -730 0 Intake: IV 400 D5-0.45% NaCl with KCl 400 20Meq/l 1,000 ml @ 50 mls /hr IV .Q20H [facility] Rx#: [id number] Intake, IV Titration 50 0 Amount Lactated Ringers 1,000 ml 0 @ 20 mls/hr IV .Q24H [facility] Rx#:[id number] Levofloxacin 250Mg-D5w 50 Pmx 250 mg In Dextrose/ Water 1 50ml.bag @ 50 mls /hr IVPB Q48H [facility] Rx#: [id number] Oral 320 Output: Hemodialysis 1500 Other: Voiding Method Indwelling Catheter Indwelling Catheter Indwelling Catheter - Exam GENERAL: The patient is lethargic, but easily arousable, alert and oriented x3, not in any acute distress. Well developed, well nourished. Temp is 98.2F, pulse is 78, respirations are 16, blood pressure is 146/80, oxygen saturation is 95% on 2-3 L via nasal cannula HEENT: Pupils are round and equally reacting to light. EOMI. No scleral icterus. No conjunctival pallor. Normocephalic, atraumatic. No pharyngeal erythema. No thyromegaly. CARDIOVASCULAR: S1 and S2 present. No murmurs, rubs, or gallops. PULMONARY: Diminished breath sounds bilaterally otherwise Chest is clear to auscultation, no wheezing or crackles. ABDOMEN: Soft, mildly tender at the midline surgical site with no surrounding erythema noted, nondistended, positive bowel sounds, surgical site area clean MUSCULOSKELETAL: No joint swelling or deformity. EXTREMITIES: No cyanosis, clubbing, or pedal edema. NEUROLOGICAL: Gross neurological examination did not reveal any focal deficits. SKIN: No rashes. - Labs CBC & Chem 7: 12/07/19 08:47 12/07/19 08:47 Labs: Abnormal Lab Results - Last 24 Hours (Table) 12/07/19 12/07/19 Range/Units 08:47 08:47 WBC 11.3 H (3.8-10.6) k/uL RBC 3.15 L (3.80-5.40) m/uL Hgb 9.6 L (11.4-16.0) gm/dL Hct 31.1 L (34.0-46.0) % MCHC 30.8 L (31.0-37.0) g/dL Plt Count 113 L (150-450) k/uL Neutrophils # 9.3 H (1.3-7.7) k/uL BUN 18 H (7-17) mg/dL Creatinine 4.26 H (0.52-1.04) mg/dL Glucose 127 H (74-99) mg/dL Assessment and Plan Assessment: -colon cancer: status post left colectomy with partial omentectomy postop day #2 -End-stage renal disease dialysis dependent, nephrology following and patient will have hemodialysis today -Gastro-Esophageal reflux disease -Anxiety disorder/depression -hypertension for above-mentioned chronic medical problems patient will be resumed on a ppropriate home medications. Plan: To continue current medications, management, and symptomatic treatment. Will continue to follow along with surgery. Nephrology following and will have hemodialysis again today. Will repeat a.m. labs. Instructed the patient increase activity as tolerated and continue to use incentive spirometer at least 10 times every hour while awake. Patient is maintained on clear liquids and will continue at this time. Further recommendations to follow.
[2019-12-07] MEDS: METOCLOPRAMIDE 5 MG/ML 2 ML VIAL IVP PRN (16:34)
[2019-12-07] MEDS: ALPRAZolam 0.5 MG TAB PO PRN (21:48)
[2019-12-08] MEDS: LACTATED RINGERS 1,000 ML IV SCH (04:50)
[2019-12-08] MEDS: HYDROmorphone 1 MG/ML 1 ML SYRINGE IVP PRN (06:00)
[2019-12-08] MEDS: ASPIRIN 81 MG PO SCH (08:16)
[2019-12-08] MEDS: allopurinoL 100 MG TAB PO SCH (08:16)
[2019-12-08] MEDS: ALVIMOPAN 12 MG CAPSULE PO SCH ×2 (08:16→20:21)
[2019-12-08] MEDS: PANTOPRAZOLE 40 MG TABLET PO SCH (08:16)
[2019-12-08] MEDS: DULoxetine HCL 30 MG CAPSULE.DR PO SCH (08:17)
[2019-12-08] MEDS: SEVELAMER 800 MG TAB PO SCH ×3 (08:17→17:11)
[2019-12-08] MEDS: HEPARIN SODIUM,PORCINE 5,000 UNIT/ML 1 ML VIAL SQ SCH ×2 (08:17→20:21)
[2019-12-08 08:21] LABS: Basophils % (A) 0 %; Eosinophils # (A) 0.1 k/uL (0-0.7); Eosinophils % (A) 1 %; HCT 33.1 % (34.0-46.0); HGB 10.5 gm/dL (11.4-16.0); Hypochromasia Slight; Lymphocytes # (A) 0.6 k/uL (1.0-4.8); Lymphocytes % (A) 6 %; MCH 31.1 pg (25.0-35.0); MCHC 31.7 g/dL (31.0-37.0); MCV 98.1 fL (80.0-100.0); Mean Platelet Volume 7.1; Monocytes # (A) 0.3 k/uL (0-1.0); Monocytes % (A) 3 %; Neutrophils % (A) 90 %; Platelet Count 127 k/uL (150-450); RBC 3.38 m/uL (3.80-5.40); RDW 13.9 % (11.5-15.5)
[2019-12-08 08:40] LABS: Calcium 8.9 mg/dL (8.4-10.2); Potassium 4.2 mmol/L (3.5-5.1)
[2019-12-08] MEDS: LEVOFLOXACIN 250MG-D5W PMX 250 MG in DEXTROSE/WATER 1 50ML.BAG IVPB SCH (12:29)
[2019-12-08] MEDS: FAMOTIDINE 20 MG/2 ML VIAL IV SCH (12:30)
--- NOTE | 2019-12-08 12:35 | PN ---
PROGRESS NOTE Patient is seen for followup for end-stage renal disease. She is currently seen on hemodialysis. Patient is tolerating her treatment well. PHYSICAL EXAMINATION: On examination, blood pressure is 112/80, heart rate 119 per minute, she is afebrile. Examination of the heart S1, S2. Examination of the lungs, decreased breath sounds at bases. Abdomen is soft, nontender. Examination of lower extremities shows no significant edema. AD COMPOSITOR exam grossly intact. LAB: Sodium 135, BUN 29, creatinine 5.8, potassium 4.2, hemoglobin 10.5 g/dL. ASSESSMENT: 1. End-stage renal disease, on hemodialysis on a Tuesday, , Tuesday schedule. 2. Colon cancer, status post left colectomy, partial omentectomy for takedown of splenic flexure on 12/05/2019. 3. CKD mineral bone disorder. PLAN: Maintain dialysis on a TTS schedule. Monitor blood pressure. Encourage increased oral intake. Keep off IV fluids. MMODL / IJN: [id number] /
--- NOTE | 2019-12-08 15:04 | P.PN ---
Subjective Progress Note Date: 12/08/19 CHIEF COMPLAINT: Colon cancer HISTORY OF PRESENT ILLNESS: The patient is a 69-year-old female status post left colectomy for colon cancer. She is resting comfortably. She reports no bowel movements. Denies moderate abdominal pain. She is tolerating clear liquid diet. ROS: No reports of nausea and vomiting. No bowel movements. No fevers or chills. No new chest pain. No productive sputum PHYSICAL EXAM: VITAL SIGNS: Reviewed CONSTITUTIONAL: Well developed and in no acute distress. EYES: Conjuctivae without sclera icterus. Extraocular movements grossly intact. HEAD, EARS, NOSE, THROAT: Moist buccal mucosa. Head is atraumatic, normocephalic. Hears conversational speech. No nasal drainage. RESPIRATORY: Non-labored respirations and equal bilateral excursions. CARDIOVASCULAR: Palpable 2+ radial pulses. ABDOMEN: Dressing is clean, dry and intact. Minimal right lower quadrant tenderness from heparin shots MUSCULOSKELETAL: No gross deformity of the lower extremities noted. No clubb ing. No cyanosis. SKIN: Good skin turgor. Well perfused. NEUROLOGIC: Cranial nerves II through XII grossly intact. No focal or lateralizing signs. PSYCH: Appropriate affect. Alert and oriented to person, place and time. CLINICAL LABS: White blood cell count normal down from 11.3 to 10.0. Hgb up 9.6 to 10.5 ASSESSMENT: 1. History colon cancer 2. S/p colectomy PLAN: 1. Await bowel movement prior to advancing diet. 2. Ambulation encouraged Objective - Vital Signs Vital signs: Vital Signs Temp 98.2 F 12/08/19 15:00 Pulse 105 H 12/08/19 15:00 Resp 18 12/08/19 15:00 BP 132/80 12/08/19 15:00 Pulse Ox 99 12/08/19 15:00 Intake & Output 12/07/19 12/08/19 12/08/19 18:59 06:59 18:59 Intake Total 100 Output Total 100 480 Balance -100 -380 Intake: Oral 100 Output: Urine 100 450 Emesis 30 Other: Voiding Method Indwelling Catheter Indwelling Catheter Indwelling Catheter - Labs CBC & Chem 7: 12/09/19 08:09 12/09/19 19:50 Labs: Abnormal Lab Results - Last 24 Hours (Table) 12/08/19 12/08/19 Range/Units 08:03 08:03 RBC 3.38 L (3.80-5.40) m/uL Hgb 10.5 L (11.4-16.0) gm/dL Hct 33.1 L (34.0-46.0) % Plt Count 127 L (150-450) k/uL Neutrophils # 9.0 H (1.3-7.7) k/uL Lymphocytes # 0.6 L (1.0-4.8) k/uL Sodium 135 L (137-145) mmol/L BUN 29 H (7-17) mg/dL Creatinine 5.81 H (0.52-1.04) mg/dL Glucose 170 H (74-99) mg/dL Assessment and Plan (1) Colon cancer Current Visit: Yes Status: Acute Code(s): C18.9 - MALIGNANT NEOPLASM OF COLON, UNSPECIFIED SNOMED Code(s): 073742300 (2) S/P colectomy Current Visit: Yes Status: Acute Code(s): Z90.49 - ACQUIRED ABSENCE OF OTHER SPECIFIED PARTS OF DIGESTIVE TRACT SNOMED Code(s): 267624511 (3) Morbid obesity due to excess calories Current Visit: Yes Status: Acute Code(s): E66.01 - MORBID (SEVERE) OBESITY DUE TO EXCESS CALORIES SNOMED Code(s): 621349524
[2019-12-08] MEDS: FUROSEMIDE 20 MG TAB PO SCH (17:41)
--- NOTE | 2019-12-08 17:41 | PN ---
PROGRESS NOTE DATE OF SERVICE: 12/08/2019 This 69-year-old woman who was admitted with colon cancer, underwent left colectomy. The patient also had a history of end-stage renal disease. Patient is receiving hemodialysis. Creatinine is 5.82, 1.5 L ultrafiltration is being considered at this time. WBC 10, hemoglobin 10.5. Patient complains of minimal shortness of breath. PAST MEDICAL HISTORY: Reviewed. REVIEW OF SYSTEMS: CARDIOVASCULAR: As mentioned RESPIRATORY SYSTEM: As mentioned earlier. GI: No nausea, vomiting. : As mentioned. TRAVELING SALES REPRESENTATIVE: No numbness or weakness. CURRENT MEDICATIONS: Reviewed include zyloprim, Xanax, Entereg, aspirin, Cymbalta, Pepcid, heparin 5000 subcu b.i.d., Dilaudid, Reglan, Zofran, Protonix and. PHYSICAL EXAM: Patient is alert, oriented x3. Pulse is 105 blood pressure 130/80, respiration 18, temperature 98.2, pulse ox 98% on 2 L. HEENT: Conjunctivae normal. NECK: Supple. No JVD. CARDIOVASCULAR: S1 and S2 muffled. RESPIRATORY: Breath sounds diminished at the bases. Few scattered rhonchi. ABDOMEN: Soft, status post surgery. LEGS: No edema. No swelling. LABS: WBC 10, hemoglobin 10.5, creatinine is 5.82. ASSESSMENT: 1. Colon cancer status post left colectomy with partial omentectomy. 2. End-stage renal disease on hemodialysis. 3. GERD. 4. Anxiety and depression. 5. Hypertension. 6. Increased WBC. 7. Anemia of chronic disease. 8. Thrombocytopenia. 9. Hyponatremia. 10.Elevated random blood sugar. 11.History of gastroesophageal reflux disease. 12.History of gastrointestinal bleed. 13.History of cardiomegaly. 14.History UTI. 15.History of hard of hearing. 16.FULL CODE. RECOMMENDATIONS AND DISCUSSION: This 69-year-old woman who presented with multiple complex medical issues, we will monitor the patient closely. Continue symptomatic treatment. Recommended stat portable chest x-ray. Otherwise PT, OT evaluation and evaluate for possible ECF rehab or home discharge. Closely follow with Surgery. Resume the home medications. Closely follow with Surgery. Further recommendations to follow. Repeat labs. MMODL / IJN: [id number] / [facility]Just[facility]
--- NOTE | 2019-12-08 17:46 | XR ---
EXAMINATION TYPE: XR chest 1V portable DATE OF EXAM: 12/08/2019 COMPARISON: 06/30/2016 INDICATION: CHF TECHNIQUE: Single frontal view of the chest is obtained. FINDINGS: The heart size is normal. The pulmonary vasculature is normal. The lungs are clear. IMPRESSION: 1. No acute pulmonary process.
[2019-12-08] MEDS: ALPRAZolam 0.5 MG TAB PO PRN (21:39)
[2019-12-09] MEDS: LACTATED RINGERS 1,000 ML IV SCH (04:08)
[2019-12-09] MEDS: ALVIMOPAN 12 MG CAPSULE PO SCH ×2 (07:22→22:05)
[2019-12-09] MEDS: FUROSEMIDE 20 MG TAB PO SCH (07:56)
[2019-12-09] MEDS: HEPARIN SODIUM,PORCINE 5,000 UNIT/ML 1 ML VIAL SQ SCH ×2 (07:56→22:08)
[2019-12-09] MEDS: PANTOPRAZOLE 40 MG TABLET PO SCH (07:56)
[2019-12-09] MEDS: FAMOTIDINE 20 MG/2 ML VIAL IV SCH (07:56)
[2019-12-09] MEDS: ASPIRIN 81 MG PO SCH (07:56)
[2019-12-09] MEDS: allopurinoL 100 MG TAB PO SCH (07:56)
[2019-12-09] MEDS: DULoxetine HCL 30 MG CAPSULE.DR PO SCH (07:57)
[2019-12-09 08:56] LABS: Basophils % (A) 0 %; Eosinophils # (A) 0.2 k/uL (0-0.7); Eosinophils % (A) 4 %; HCT 29.3 % (34.0-46.0); HGB 9.5 gm/dL (11.4-16.0); Hypochromasia Slight; Lymphocytes # (A) 0.9 k/uL (1.0-4.8); Lymphocytes % (A) 13 %; MCH 31.5 pg (25.0-35.0); MCHC 32.6 g/dL (31.0-37.0); MCV 96.6 fL (80.0-100.0); Mean Platelet Volume 7.3; Monocytes # (A) 0.3 k/uL (0-1.0); Monocytes % (A) 4 %; Neutrophils # (A) 5.4 k/uL (1.3-7.7); Neutrophils % (A) 79 %; Platelet Count 100 k/uL (150-450); RBC 3.03 m/uL (3.80-5.40); RDW 13.8 % (11.5-15.5); WBC 6.8 k/uL (3.8-10.6)
[2019-12-09 09:14] LABS: Calcium 8.8 mg/dL (8.4-10.2); Potassium 3.4 mmol/L (3.5-5.1)
[2019-12-09] MEDS ORDERED: Potassium Replacement Protocol 1 EACH MISC MISCELLANE PRN (12:17)
--- NOTE | 2019-12-09 12:40 | P.PN ---
Subjective Progress Note Date: 12/09/19 CHIEF COMPLAINT: Colon cancer HISTORY OF PRESENT ILLNESS: The patient is a 69-year-old female status post left colectomy for colon cancer. She is passing flatus and had two bowel movements this morning. She reports new left upper quadrant pain from moving in the bed. She does not have an abdominal binder ROS: No reports of nausea and vomiting. No fevers or chills. No new chest pain. No productive sputum PHYSICAL EXAM: VITAL SIGNS: Reviewed CONSTITUTIONAL: Well developed and in no acute distress. EYES: Conjuctivae without sclera icterus. Extraocular movements grossly intact. HEAD, EARS, NOSE, THROAT: Moist buccal mucosa. Head is atraumatic, normocephalic. Hears conversational speech. No nasal drainage. RESPIRATORY: Non-labored respirations and equal bilateral excursions. CARDIOVASCULAR: Palpable 2+ radial pulses. ABDOMEN: Dressing intact. No peritonitis MUSCULOSKELETAL: No gross deformity of the lower extremities noted. No clubbing. No cyanosis. SKIN: Good skin turgor. Well perfused. NEUROLOGIC: Cranial nerves II through XII grossly intact. No focal or lateralizing signs. PSYCH: Appropriate affect. Alert and oriented to person, place and time. CLINICAL LABS: White blood cell count normal down from 11.3 to 10.0, now 6.8. Hgb up 9.6 to 10.5, now 9.5 ASSESSMENT: 1. History colon cancer 2. S/p colectomy PLAN: 1. Advance diet as tolerated 2. Abdominal binder Objective - Vital Signs Vital signs: Vital Signs Temp 97.7 F 12/09/19 07:00 Pulse 85 12/09/19 12:20 Resp 17 12/09/19 07:00 BP 113/69 12/09/19 12:20 Pulse Ox 97 12/09/19 12:20 Intake & Output 12/08/19 12/09/19 12/09/19 18:59 06:59 18:59 Intake Total 1080 Output Total 100 120 Balance 980 -120 Intake: Oral 1080 Output: Urine 100 120 Uretheral (Finley) 100 Other: Voiding Method Indwelling Catheter Indwelling Catheter Indwelling Catheter # Bowel Movements 1 1 - Labs CBC & Chem 7: 12/09/19 08:09 12/09/19 19:50 Labs: Abnormal Lab Results - Last 24 Hours (Table) 12/09/19 12/09/19 Range/Units 08:09 08:09 RBC 3.03 L (3.80-5.40) m/uL Hgb 9.5 L (11.4-16.0) gm/dL Hct 29.3 L (34.0-46.0) % Plt Count 100 L (150-450) k/uL Lymphocytes # 0.9 L (1.0-4.8) k/uL Sodium 131 L (137-145) mmol/L Potassium 3.4 L (3.5-5.1) mmol/L BUN 22 H (7-17) mg/dL Creatinine 4.46 H (0.52-1.04) mg/dL Glucose 119 H (74-99) mg/dL Assessment and Plan (1) Colon cancer Current Visit: Yes Status: Acute Code(s): C18.9 - MALIGNANT NEOPLASM OF COLON, UNSPECIFIED SNOMED Code(s): 030718883 (2) Morbid obesity due to excess calories Current Visit: Yes Status: Acute Code(s): E66.01 - MORBID (SEVERE) OBESITY DUE TO EXCESS CALORIES SNOMED Code(s): 782793764 (3) S/P colectomy Current Visit: Yes Status: Acute Code(s): Z90.49 - ACQUIRED ABSENCE OF OTHER SPECIFIED PARTS OF DIGESTIVE TRACT SNOMED Code(s): 639125798
[2019-12-09] MEDS: HYDROmorphone 1 MG/ML 1 ML SYRINGE IVP PRN (12:53)
[2019-12-09] MEDS: POTASSIUM CHLORIDE ER 20 MEQ TAB.ER PO SCH ×2 (12:54→14:23)
--- NOTE | 2019-12-09 16:35 | PN ---
PROGRESS NOTE The patient is seen for followup for end-stage renal disease. She is resting comfortably. Patient was dialyzed yesterday. She tolerated her treatment well. PHYSICAL EXAMINATION: Blood pressure is 113/69, heart rate 85 per minute. She is afebrile. Examination of the heart S1, S2. Examination of the lungs, bilateral breath sounds are heard. Abdomen is soft, nontender. Incision appears to be slightly tender. Exam of lower extremities shows no evidence of edema. RECRUITMENT MANAGER exam grossly intact. LAB: Show sodium 131, potassium 3.4 today, hemoglobin 9.5 g/dL. ASSESSMENT: 1. End-stage renal disease, on hemodialysis on a Tuesday, , Tuesday schedule. 2. Status post left colectomy with partial omentectomy for colon cancer, takedown of splenic flexure. 3. CKD mineral bone disorder. PLAN: Next hemodialysis on Tuesday. MMODL / IJN: [id number] /
[2019-12-09] MEDS: ALPRAZolam 0.5 MG TAB PO PRN (22:08)
--- NOTE | 2019-12-09 23:29 | PN ---
PROGRESS NOTE DATE OF SERVICE: 12/09/2019 This 69-year-old woman who was admitted after left colectomy for colon cancer, also received hemodialysis. Chest x-ray did not show any acute abnormality. No chest pain. No palpitations. No fever. PHYSICAL EXAMINATION: On exam, alert and oriented x3. Pulse 84, blood pressure 122/71, respirations 16, temperature 97.7, pulse ox 98% on 3 L. HEENT: Conjunctivae normal. NECK: No JVD. CARDIOVASCULAR: S1, S2 muffled. RESPIRATORY: Breath sounds diminished at the bases. A few scattered rhonchi. ABDOMEN: Soft. NERVOUS SYSTEM: No focal deficits. LABS: WBC 6.8, hemoglobin 9.5, sodium 131, potassium 3.4, creatinine is 4.46. ASSESSMENT: 1. Colon cancer, status post left colectomy with partial omentectomy. 2. End-stage renal disease on hemodialysis. 3. Gastroesophageal reflux disease. 4. Anxiety, depression. 5. Hypertension. 6. Increased WBC. 7. Anemia of chronic disease. 8. Mild hypokalemia. 9. Hyponatremia. 10.Thrombocytopenia. 11.Elevated random blood sugar. 12.History of gastroesophageal reflux disease. 13.Gastrointestinal bleed. 14.History of cardiomegaly. 15.History of urinary tract infection. 16.History of hard of hearing. 17.FULL CODE. RECOMMENDATIONS AND DISCUSSION: Recommend to continue current medications, continue symptomatic treatment. Continue the hemodialysis. Closely follow with Surgery. Diet per Surgery. Increase ambulation. Potassium replacement protocol. Closely monitor. Further recommendations to follow. MMODL / IJN: [id number] /
[2019-12-10] MEDS: LACTATED RINGERS 1,000 ML IV SCH (06:00)
[2019-12-10] MEDS: ALVIMOPAN 12 MG CAPSULE PO SCH (09:14)
[2019-12-10] MEDS: FUROSEMIDE 20 MG TAB PO SCH (09:14)
[2019-12-10] MEDS: DULoxetine HCL 30 MG CAPSULE.DR PO SCH (09:14)
[2019-12-10] MEDS: PANTOPRAZOLE 40 MG TABLET PO SCH (09:14)
[2019-12-10] MEDS: LEVOFLOXACIN 250MG-D5W PMX 250 MG in DEXTROSE/WATER 1 50ML.BAG IVPB SCH (09:14)
[2019-12-10] MEDS: ASPIRIN 81 MG PO SCH (09:15)
[2019-12-10] MEDS: HEPARIN SODIUM,PORCINE 5,000 UNIT/ML 1 ML VIAL SQ SCH ×2 (09:15→20:56)
[2019-12-10] MEDS: allopurinoL 100 MG TAB PO SCH (09:15)
[2019-12-10] MEDS: FAMOTIDINE 20 MG/2 ML VIAL IV SCH (09:15)
[2019-12-10 11:55] LABS: Calcium 9.1 mg/dL (8.4-10.2); Potassium 3.8 mmol/L (3.5-5.1)
[2019-12-10 12:14] LABS: Basophils % (A) 0 %; Eosinophils # (A) 0.3 k/uL (0-0.7); Eosinophils % (A) 5 %; HCT 28.2 % (34.0-46.0); HGB 9.1 gm/dL (11.4-16.0); Hypochromasia Slight; Lymphocytes # (A) 0.9 k/uL (1.0-4.8); Lymphocytes % (A) 13 %; MCH 31.1 pg (25.0-35.0); MCHC 32.2 g/dL (31.0-37.0); MCV 96.8 fL (80.0-100.0); Mean Platelet Volume 7.3; Monocytes # (A) 0.2 k/uL (0-1.0); Monocytes % (A) 3 %; Neutrophils # (A) 5.2 k/uL (1.3-7.7); Neutrophils % (A) 77 %; RBC 2.91 m/uL (3.80-5.40); RDW 13.9 % (11.5-15.5); WBC 6.8 k/uL (3.8-10.6)
--- NOTE | 2019-12-10 13:03 | P.PN ---
Subjective Progress Note Date: 12/10/19 Principal diagnosis: This is a 69-year-old female who was recently admitted for colon cancer status post left colectomy and is being closely monitored. Following along closely wit h surgery. Nephrology also following as patient receives hemodialysis on Tuesday//Tuesday and is maintained on the schedule. Patient to receive hemodialysis in the morning. Abdominal binder in place and indwelling Finley catheter has been removed. Patient is tolerating diet and is passing gas with one bowel movement noted. Currently patient denies any chest pain, shortness of breath, or palpitations. Patient is afebrile. No reports of nausea or vomiting and patient is tolerating diet. Discussed with nursing staff along with patient about increasing activity as tolerated. Also reinstructed the patient to continue using incentive spirometer at least 10 times every hour while awake. Objective - Vital Signs Vital signs: Vital Signs Temp 96.6 F L 12/10/19 08:40 Pulse 92 12/10/19 08:40 Resp 16 12/10/19 09:48 BP 134/51 12/10/19 08:40 Pulse Ox 93 L 12/10/19 09:48 Intake & Output 12/09/19 12/10/19 12/10/19 18:59 06:59 18:59 Intake Total 400 400 Output Total 740 452 9090 Balance 200 -650 -1500 Intake: Oral 400 400 Output: Urine 200 650 400 Uretheral (Finley) 200 200 200 Hemodialysis 1500 Other: Voiding Method Indwelling Catheter Indwelling Catheter Indwelling Catheter # Bowel Movements 1 1 - Exam GENERAL: The patient is Awake, alert and oriented x3. Well developed, well nourished. Obese Temp is 96.6F, pulse is 92, respirations are 18, blood pressure is 134/51, oxygen saturation is 93% on Room air HEENT: Pupils are round and equally reacting to light. EOMI. No scleral icterus. No conjunctival pallor. Normocephalic, atraumatic. No pharyngeal erythema. No thyromegaly. CARDIOVASCULAR: S1 and S2 present. No murmurs, rubs, or gallops. PULMONARY: Diminished breath sounds bilaterally otherwise Chest is clear to auscultation, no wheezing or crackles. ABDOMEN: Soft, Nontender, Obese, nondistended, positive bowel sounds, surgical site area clean MUSCULOSKELETAL: No joint swelling or deformity. EXTREMITIES: No cyanosis, clubbing, or pedal edema. NEUROLOGICAL: Gross neurological examination did not reveal any focal deficits. SKIN: No rashes. - Labs CBC & Chem 7: 12/10/19 11:15 12/10/19 11:15 Labs: Abnormal Lab Results - Last 24 Hours (Table) 12/10/19 12/10/19 Range/Units 11:15 11:15 RBC 2.91 L (3.80-5.40) m/uL Hgb 9.1 L (11.4-16.0) gm/dL Hct 28.2 L (34.0-46.0) % Sodium 132 L (137-145) mmol/L BUN 33 H (7-17) mg/dL Creatinine 5.99 H (0.52-1.04) mg/dL Glucose 119 H (74-99) mg/dL Assessment and Plan Assessment: -colon cancer: status post left colectomy with partial omentectomy -End-stage renal disease dialysis dependent -Gastro-Esophageal reflux disease -Anxiety disorder/depression -hypertension -Increased white blood count -Anemia of chronic disease -Mild hypokalemia -Hyponatremia -Thrombocytopenia -Elevated random blood sugar -Gastrointestinal bleed -History of cardiomegaly -History of urinary tract infection -History of hard of hearing -Full code Plan: To continue current medications, management, and symptomatic treatment. Will continue to follow along with surgery. Nephrology following As patient is maintained on hemodialysis Tuesday//Tuesday and will receive a treatment in the morning. Will repeat a.m. labs. Instructed the patient increase activity as tolerated and continue to use incentive spirometer at least 10 times every hour while awake. Patient is maintained on Low fiber diet and will continue at this time. Further recommendations to follow. Possible discharge in 24-48 hours.
[2019-12-10 13:55] LABS: Platelet Count 97 k/uL (150-450)
--- NOTE | 2019-12-10 15:06 | P.PN ---
Subjective Progress Note Date: 12/10/19 CHIEF COMPLAINT: Left colon cancer HISTORY OF PRESENT ILLNESS: Patient with known left colon cancer status post left colectomy, partial omentectomy and takedown of splenic flexure. Patient reports that her abdominal pain is controlled. She denies any nausea or vomiting. She is having bowel movements. Tolerating a low fiber diet. She's afebrile. WBC 6.8 hemoglobin 9.1 platelets 90s on PHYSICAL EXAM: VITAL SIGNS: Reviewed. GENERAL: Well-developed in no acute distress. HEENT: No sclera icterus. Extraocular movements grossly intact. Moist buccal mucosa. Head is atraumatic, normocephalic. ABDOMEN: Soft. Nondistended. Nontender dressing clean dry and intact NEUROLOGIC: Alert and oriented. Cranial nerves II through XII grossly intact. ASSESSMENT: 1. Left colon cancer: Status post left colectomy, partial laminectomy and take down of splenic flexure PLAN: -Continue regular diet -Continue antibiotics -Continue pain medication -GI prophylaxis Protonix and DVT prophylaxis SC Heparin -Consult PT -Anticipate discharge possibly tomorrow Physician Rag Collector note has been reviewed by physician. Signing provider agrees with the documented findings, assessment, and plan of care. Objective - Vital Signs Vital signs: Vital Signs Temp 96.6 F L 12/10/19 08:40 Pulse 92 12/10/19 08:40 Resp 16 12/10/19 09:48 BP 134/51 12/10/19 08:40 Pulse Ox 93 L 12/10/19 09:48 Intake & Output 12/09/19 12/10/19 12/10/19 18:59 06:59 18:59 Intake Total 400 800 Output Total 007 770 1351 Balance 200 -650 -1350 Intake: Oral 400 800 Output: Urine 200 650 650 Uretheral (Finley) 200 200 200 Hemodialysis 1500 Other: Voiding Method Indwelling Catheter Indwelling Catheter Indwelling Catheter # Bowel Movements 1 1 - Labs CBC & Chem 7: 12/10/19 11:15 12/10/19 11:15 Labs: Abnormal Lab Results - Last 24 Hours (Table) 12/10/19 12/10/19 Range/Units 11:15 11:15 RBC 2.91 L (3.80-5.40) m/uL Hgb 9.1 L (11.4-16.0) gm/dL Hct 28.2 L (34.0-46.0) % Plt Count 97 L (150-450) k/uL Lymphocytes # 0.9 L (1.0-4.8) k/uL Sodium 132 L (137-145) mmol/L BUN 33 H (7-17) mg/dL Creatinine 5.99 H (0.52-1.04) mg/dL Glucose 119 H (74-99) mg/dL
--- NOTE | 2019-12-10 17:56 | PN ---
PROGRESS NOTE Patient is seen for followup for end-stage renal disease. She will be scheduled for hemodialysis in a.m. Currently doing fairly well. Abdominal pain is much improved. PHYSICAL EXAMINATION: Blood pressure is 136/78, heart rate 95 per minute. Patient is afebrile. EXAMINATION OF THE HEART: S1 and S2. EXAMINATION OF LUNGS: Bilateral breath sounds are heard. ABDOMEN: Soft, non-tender. Examination of lower extremities shows no significant edema. COMPLETIONS MANAGER exam is grossly intact. LABS: Labs show sodium 132, potassium 3.2, hemoglobin 9.1 g/dL. ASSESSMENT: 1. End-stage renal disease, on hemodialysis on a Tuesday, , Tuesday schedule. 2. Colon cancer, status post left colectomy with takedown of splenic flexure. 3. Chronic kidney disease mineral bone disorder. PLAN: Hemodialysis in a.m. Encourage increased oral intake. MMODL / IJN: [id number] /
[2019-12-10] MEDS: HYDROmorphone 1 MG/ML 1 ML SYRINGE IVP PRN (19:32)
[2019-12-10] MEDS: ALPRAZolam 0.5 MG TAB PO PRN (23:03)
[2019-12-11] MEDS: LACTATED RINGERS 1,000 ML IV SCH (06:54)
[2019-12-11 08:18] LABS: Basophils % (A) 1 %; Eosinophils # (A) 0.3 k/uL (0-0.7); Eosinophils % (A) 5 %; HCT 28.1 % (34.0-46.0); HGB 9.1 gm/dL (11.4-16.0); Lymphocytes # (A) 1.2 k/uL (1.0-4.8); Lymphocytes % (A) 20 %; MCHC 32.4 g/dL (31.0-37.0); MCV 95.6 fL (80.0-100.0); Mean Platelet Volume 6.8; Monocytes # (A) 0.3 k/uL (0-1.0); Monocytes % (A) 5 %; Neutrophils # (A) 4.2 k/uL (1.3-7.7); Neutrophils % (A) 68 %; Platelet Count 103 k/uL (150-450); RBC 2.94 m/uL (3.80-5.40); WBC 6.2 k/uL (3.8-10.6)
[2019-12-11 08:24] LABS: Calcium 8.8 mg/dL (8.4-10.2); Potassium 3.7 mmol/L (3.5-5.1)
[2019-12-11] MEDS: FUROSEMIDE 20 MG TAB PO SCH (08:24)
[2019-12-11] MEDS: DULoxetine HCL 30 MG CAPSULE.DR PO SCH (08:25)
[2019-12-11] MEDS: HEPARIN SODIUM,PORCINE 5,000 UNIT/ML 1 ML VIAL SQ SCH (08:26)
[2019-12-11] MEDS: PANTOPRAZOLE 40 MG TABLET PO SCH (08:26)
[2019-12-11] MEDS: FAMOTIDINE 20 MG/2 ML VIAL IV SCH (08:26)
[2019-12-11] MEDS: allopurinoL 100 MG TAB PO SCH (08:29)
[2019-12-11] MEDS: ASPIRIN 81 MG PO SCH (08:29)
[2019-12-11] MEDS: SEVELAMER 800 MG TAB PO SCH ×2 (08:29→12:03)
[2019-12-11] MEDS ORDERED: HYDROcodone/APAP 5-325MG 1 EACH TAB PO PRN (08:36)
--- NOTE | 2019-12-11 11:34 | P.PN ---
Subjective Patient is seen in follow-up for end-stage renal disease. She is maintained on hemodialysis on Tuesday. Tolerating dialysis well. Oral intake good. No pain. Vital signs are stable. General: The patient appeared well nourished and normally developed. HEENT: Head exam is unremarkable. Neck is without jugular venous distension. LUNGS: Lungs are clear to auscultation and percussion. Breath sounds decreased. HEART: Rate and Rhythm are regular. ABDOMEN: Surgical abdomen. Nontender. EXTREMITITES: No clubbing, cyanosis, or edema. Objective - Vital Signs Vital signs: Vital Signs Temp 98.0 F 12/11/19 07:00 Pulse 83 12/11/19 07:00 Resp 20 12/11/19 07:00 BP 127/73 12/11/19 07:00 Pulse Ox 95 12/11/19 07:00 Intake & Output 12/10/19 12/11/19 12/11/19 18:59 06:59 18:59 Intake Total 1200 Output Total 2400 Balance -1200 Intake: Oral 1200 Output: Urine 900 Uretheral (Finley) 200 Hemodialysis 1500 Other: Voiding Method Toilet Bedside Commode # Voids 1 2 # Bowel Movements 1 2 - Labs CBC & Chem 7: 12/11/19 07:32 12/11/19 07:32 Labs: Abnormal Lab Results - Last 24 Hours (Table) 12/10/19 12/10/19 12/11/19 Range/Units 11:15 11:15 07:32 RBC 2.91 L 2.94 L (3.80-5.40) m/uL Hgb 9.1 L 9.1 L (11.4-16.0) gm/dL Hct 28.2 L 28.1 L (34.0-46.0) % Plt Count 97 L 103 L (150-450) k/uL Lymphocytes # 0.9 L (1.0-4.8) k/uL Sodium 132 L (137-145) mmol/L BUN 33 H (7-17) mg/dL Creatinine 5.99 H (0.52-1.04) mg/dL Glucose 119 H (74-99) mg/dL 12/11/19 Range/Units 07:32 RBC (3.80-5.40) m/uL Hgb (11.4-16.0) gm/dL Hct (34.0-46.0) % Plt Count (150-450) k/uL Lymphocytes # (1.0-4.8) k/uL Sodium 133 L (137-145) mmol/L BUN 41 H (7-17) mg/dL Creatinine 6.08 H (0.52-1.04) mg/dL Glucose 105 H (74-99) mg/dL Assessment and Plan Plan: Assessment: 1. End-stage renal disease maintained on hemodialysis on Tuesday schedule. 2. Left colon cancer status post left colectomy, partial omentectomy for takedown of splenic flexure and 12/05/2019. 3. Chronic kidney disease mineral bone disease maintained on Renvela. 4. Hypokalemia, resolved. 5. Hyponatremia secondary to chronic kidney disease. Plan: Currently seen while undergoing hemodialysis. Next treatment on . Stable to be discharged home from nephrology standpoint.
--- NOTE | 2019-12-11 11:40 | P.DS ---
Providers Date of admission: 12/05/19 10:00 Expected date of discharge: 12/11/19 Attending physician: El Corley Consults: 12/05/19 13:03 Consult Physician Routine Consulting Provider: Hugh Orona Consult Reason/Comments: med manage Do you want consulting provider notified?: Yes 12/05/19 15:03 Consult Physician Routine Consulting Provider: Jalil Monroy Consult Reason/Comments: ESRD Do you want consulting provider notified?: Yes Primary care physician: Ruben Mitchell Hospital Course: Discharge diagnosis 1. Left colon cancer: Status post left colectomy, partial omentectomy and take down of splenic flexure Hospital course This is a 69-year-old female with known left colon cancer she presented to the hospital for left colectomy. Patient underwent a left colectomy, partial omentectomy and take down of splenic flexure with Dr. Corley. She tolerated surgery well. No complications. She tolerated advancement of diet. She is having bowel movements. Denies any nausea or vomiting. She is afebrile. She has been up and ambulating and will go home with home care today after dialysis. Patient will follow-up with Dr. Corley in the office in one week. Physician Brass Sorter note has been reviewed by physician. Signing provider agrees with the documented findings, assessment, and plan of care. Patient Condition at Discharge: Stable Plan - Discharge Summary Discharge Rx Participant: No New Discharge Prescriptions: New Docusate [Colace] 100 mg PO BID #30 capsule Hydrocodone/Acetaminophen [Brightwood 5-325] 1 tab PO Q6HR PRN 3 Days #12 tab PRN Reason: Pain No Action allopurinoL [Zyloprim] 100 mg PO DAILY Aspirin 81 mg PO DAILY Sevelamer [Renvela] 1,600 mg PO TID PRN PRN Reason: day of dialysis Omeprazole 40 mg PO DAILY Metoprolol Tartrate [Lopressor] 25 mg PO DIRECTED PRN PRN Reason: dialysis days Furosemide [Lasix] 20 mg PO DAILY ALPRAZolam [Xanax] 0.25 mg PO DAILY PRN PRN Reason: Anxiety DULoxetine HCL [Cymbalta] 30 mg PO DAILY Discharge Medication List Aspirin 81 mg PO DAILY 12/14/14 [History] allopurinoL [Zyloprim] 100 mg PO DAILY 12/14/14 [History] Sevelamer [Renvela] 1,600 mg PO TID PRN 12/13/17 [History] Omeprazole 40 mg PO DAILY 11/27/18 [History] Furosemide [Lasix] 20 mg PO DAILY 11/15/19 [History] Metoprolol Tartrate [Lopressor] 25 mg PO DIRECTED PRN 11/15/19 [History] ALPRAZolam [Xanax] 0.25 mg PO DAILY PRN 11/27/19 [History] DULoxetine HCL [Cymbalta] 30 mg PO DAILY 11/27/19 [History] Docusate [Colace] 100 mg PO BID #30 capsule 12/11/19 [Rx] Hydrocodone/Acetaminophen [Brightwood 5-325] 1 tab PO Q6HR PRN 3 Days #12 tab [Rx] Follow up Appointment(s)/Referral(s): [facility], [NON-STAFF] - El Corley MD [STAFF PHYSICIAN] - 1 Week Patient Instructions/Handouts: Colectomy (DC), Colectomy Diet (DC) Activity/Diet/Wound Care/Special Instructions: No driving while taking Brightwood No lifting over 10 pounds You may shower. No soaking or tub baths for 2 weeks after surgery Very light activity until you are reevaluated at your follow up appointment with your surgeon Discharge Disposition: HOME WITH HOME HEALTH SERVICES
[2019-12-11 13:03] VITALS: BP 111/68; PULSE 82; RESP 18; TEMP 97.1
--- NOTE | 2019-12-11 14:04 | P.PN ---
Subjective Progress Note Date: 12/11/19 Principal diagnosis: This is a 69-year-old female who was recently admitted for colon cancer status post left colectomy and is being closely monitored. Following along closely wit h surgery. Nephrology also following as patient receives hemodialysis on Tuesday//Tuesday and is maintained on the schedule. Patient to receive hemodialysis in the morning. Abdominal binder in place and indwelling Finley catheter has been removed. Patient is tolerating diet and is passing gas with one bowel movement noted. Currently patient denies any chest pain, shortness of breath, or palpitations. Patient is afebrile. No reports of nausea or vomiting and patient is tolerating diet. Discussed with nursing staff along with patient about increasing activity as tolerated. Also reinstructed the patient to continue using incentive spirometer at least 10 times every hour while awake. 12/11/2019 Patient is seen and evaluated and follow-up currently receiving hemodialysis. Patient is on a Tuesdays/Saturdays schedule and will continue at this time. Patient was seen and evaluated by physical therapy and will be going home with home care in the outpatient setting. Patient states she is tolerating diet with no reports of nausea or vomiting status post colectomy and has been having bowel movements. Patient is eager to go home today. Will continue to follow along with surgery while hospitalized. Review of systems: Constitutional: No reports of fatigue, fever, or chills Cardiovascular: No reports of chest pain or palpitations Respiratory: No reports of shortness of breath or cough GI: No reports of nausea, vomiting, or diarrhea, reports mild abdominal wall discomfort with position changes : No reports of dysuria or retention Neurovascular: No reports of weakness or numbness All medications have been reviewed Objective - Vital Signs Vital signs: Vital Signs Temp 97.1 F L 12/11/19 13:01 Pulse 82 12/11/19 13:01 Resp 18 12/11/19 13:01 BP 111/68 12/11/19 13:01 Pulse Ox 95 12/11/19 07:00 Intake & Output 12/10/19 12/11/19 12/11/19 18:59 06:59 18:59 Intake Total 1200 Output Total 2400 1999 Balance -1199 -1999 Intake: Oral 1200 Output: Urine 900 Uretheral (Finley) 200 Hemodialysis 1500 2000 Other: Voiding Method Toilet Bedside Commode # Voids 1 2 1 # Bowel Movements 1 2 - Exam GENERAL: The patient is Awake, alert and oriented x3. Well developed, well nourished. Obese. Hard of hearing. Temp is 97.1 F, pulse is 82, respirations are 18, blood pressure is 111/68, oxygen saturation is 95 % on Room air HEENT: Pupils are round and equally reacting to light. EOMI. No scleral icterus. No conjunctival pallor. Normocephalic, atraumatic. No pharyngeal erythema. No thyromegaly. CARDIOVASCULAR: S1 and S2 present. No murmurs, rubs, or gallops. PULMONARY: Diminished breath sounds bilaterally otherwise Chest is clear to auscultation, no wheezing or crackles. ABDOMEN: Soft, Nontender, Obese, nondistended, positive bowel sounds, surgical site area clean, abdominal binder noted MUSCULOSKELETAL: No joint swelling or deformity. EXTREMITIES: No cyanosis, clubbing, or pedal edema. NEUROLOGICAL: Gross neurological examination did not reveal any focal deficits. SKIN: No rashes. - Labs CBC & Chem 7: 12/11/19 07:32 12/11/19 07:32 Labs: Abnormal Lab Results - Last 24 Hours (Table) 12/11/19 12/11/19 Range/Units 07:32 07:32 RBC 2.94 L (3.80-5.40) m/uL Hgb 9.1 L (11.4-16.0) gm/dL Hct 28.1 L (34.0-46.0) % Plt Count 103 L (150-450) k/uL Sodium 133 L (137-145) mmol/L BUN 41 H (7-17) mg/dL Creatinine 6.08 H (0.52-1.04) mg/dL Glucose 105 H (74-99) mg/dL Assessment and Plan Assessment: -colon cancer: status post left colectomy with partial omentectomy -End-stage renal disease dialysis dependent -Gastro-Esophageal reflux disease -Anxiety disorder/depression -hypertension -Increased white blood count -Anemia of chronic disease -Mild hypokalemia -Hyponatremia -Thrombocytopenia -Elevated random blood sugar -Gastrointestinal bleed -History of cardiomegaly -History of urinary tract infection -History of hard of hearing -Full code Plan: To continue current medications, management, and symptomatic treatment. Will continue to follow along with surgery. Nephrology following and patient is receiving hemodialysis today she is normally scheduled on Tuesday//Tuesday and will continue. Instructed the patient increase activity as tolerated and continue to use incentive spirometer at least 10 times every hour while awake. Patient is maintained on regular diet and will continue at this time. Further recommendations to follow. Patient is to be discharged today in case management following making arrangements for home care.
== END 2019-12-11 15:29 | disposition home health service (06) | DRG 329 ==
LOC: 2ORMAIN 10:00 → 4SSUR 14:17
PROVIDERS: ADMIT Surgery; ATTEND Surgery
PROC: 0DTG0ZZ Resection of Left Large Intestine, Open Approach (ICD-10-PCS; principal; 2019-12-05 12:40)
PROC: 0DBU0ZZ Excision of Omentum, Open Approach (ICD-10-PCS; principal; 2019-12-05 12:40)
PROC: 5A1D70Z Performance of Urinary Filtration, Intermittent, Less than 6 Hours Per Day (ICD-10-PCS; 2019-12-06)
DX: C18.6 Malignant neoplasm of descending colon (principal); N18.6 End stage renal disease; I13.11 Hypertensive heart and chronic kidney disease without heart failure, with stage 5 chronic kidney disease, or end stage renal disease; E87.1 Hypo-osmolality and hyponatremia; Z68.41 Body mass index [BMI] 40.0-44.9, adult; D69.6 Thrombocytopenia, unspecified; D63.1 Anemia in chronic kidney disease; E83.9 Disorder of mineral metabolism, unspecified; E66.01 Morbid (severe) obesity due to excess calories; Z99.2 Dependence on renal dialysis; E87.6 Hypokalemia; F41.9 Anxiety disorder, unspecified; F32.9 Major depressive disorder, single episode, unspecified; K21.9 Gastro-esophageal reflux disease without esophagitis; H91.90 Unspecified hearing loss, unspecified ear; Z79.82 Long term (current) use of aspirin; Z79.899 Other long term (current) drug therapy; Z87.891 Personal history of nicotine dependence; Z85.828 Personal history of other malignant neoplasm of skin; Z87.440 Personal history of urinary (tract) infections; Z96.652 Presence of left artificial knee joint; Z87.19 Personal history of other diseases of the digestive system; Z90.49 Acquired absence of other specified parts of digestive tract; Z90.89 Acquired absence of other organs; Z97.4 Presence of external hearing-aid; Z98.890 Other specified postprocedural states; Z88.0 Allergy status to penicillin; Z88.2 Allergy status to sulfonamides; Z88.8 Allergy status to other drugs, medicaments and biological substances; Z82.5 Family history of asthma and other chronic lower respiratory diseases; Z80.9 Family history of malignant neoplasm, unspecified
CPT/HCPCS: 36415; 71045; 80048; 82565; 84132; 84520; 85025; 86850; 86900; 86901; 88309; 90935; 94002

== ENCOUNTER 2019-12-15 16:32 | Emergency (ER) | payer MEDICARE ==
[2019-12-15 16:38] VITALS: RESP 18
--- NOTE | 2019-12-15 16:54 | ED ---
General Adult HPI - General Source: patient Mode of arrival: ambulatory Limitations: no limitations <Rodo Diallo - Last Filed: 12/15/19 22:42> <Mag De La Garza - Last Filed: 12/16/19 13:37> - General Chief complaint: Recheck/Abnormal Lab/Rx Stated complaint: Bandage is falling off post surg Time Seen by Provider: 12/15/19 16:43 - History of Present Illness Initial comments: Patient is a 69-year-old female with history of colon cancer presenting to emergency Department with a chief complaint of incision site problems. Patient states she had a bowel resection 10 days ago by and states the incision site tape is falling apart. Patient states she went to dialysis today and the nurse there and put some extra gauze under the tape from the incision site. Patient denies any discharge from the reason but states she saw some redness in the region. She denies any significant pain from the incision site. Denies any night sweats or chills. No nausea vomiting. (Rodo Diallo) - Related Data Home Medications Medication Instructions Recorded Confirmed Aspirin 81 mg PO DAILY 12/14/14 12/05/19 allopurinoL [Zyloprim] 100 mg PO DAILY 12/14/14 12/05/19 Sevelamer [Renvela] 1,600 mg PO TID PRN 12/13/17 12/06/19 Omeprazole 40 mg PO DAILY 11/27/18 12/05/19 Furosemide [Lasix] 20 mg PO DAILY 11/15/19 12/05/19 Metoprolol Tartrate [Lopressor] 25 mg PO DIRECTED PRN 11/15/19 12/05/19 ALPRAZolam [Xanax] 0.25 mg PO DAILY PRN 11/27/19 11/27/19 DULoxetine HCL [Cymbalta] 30 mg PO DAILY 11/27/19 11/27/19 Previous Rx's Medication Instructions Recorded Docusate [Colace] 100 mg PO BID #30 capsule 12/11/19 Hydrocodone/Acetaminophen [[place] 1 tab PO Q6HR PRN 3 Days #12 tab 12/11/19 5-325] Allergies Allergy/AdvReac Type Severity Reaction Status Date / Time amoxicillin trihydrate Allergy Anaphylaxis Verified 12/15/19 16:35 [From Augmentin] iodine Allergy Anaphylaxis Verified 12/15/19 16:35 menthol Allergy Unknown Verified 12/15/19 16:35 potassium clavulanate Allergy Anaphylaxis Verified 12/15/19 16:35 [From Augmentin] sulfasalazine Allergy Unknown Verified 12/15/19 16:35 [From Azulfidine] Review of Systems ROS Other: All systems not noted in ROS Statement are negative. <Rodo Diallo - Last Filed: 12/15/19 22:42> ROS Other: All systems not noted in ROS Statement are negative. <Mag De La Garza - Last Filed: 12/16/19 13:37> ROS Statement: Those systems with pertinent positive or pertinent negative responses have been documented in the HPI. Past Medical History Past Medical History: Cancer, Dialysis, GERD/Reflux, GI Bleed, Hearing Disorder / Deafness, Renal Disease Additional Past Medical History / Comment(s): ESRD with hemodialysis T//, mineral bone disease, mild heart enlargement, skin cancer removed from nose, lower GI bleed years ago, UTI, [place] bilaterally with hearing aides, colon cancer History of Any Multi-Drug Resistant Organisms: None Reported Past Surgical History: Appendectomy, Joint Replacement, Tonsillectomy Additional Past Surgical History / Comment(s): LA fistula, colonoscopy, skin cancer removed from nose, total left knee arthroplasty Past Anesthesia/Blood Transfusion Reactions: Previous Problems w/ Anesthesia Additional Past Anesthesia/Blood Transfusion Reaction / Comment(s): Difficulty waking Past Psychological History: Anxiety Smoking Status: Former smoker Past Alcohol Use History: None Reported Past Drug Use History: None Reported - Past Family History Mother Family Medical History: COPD Additional Family Medical History / Comment(s): Heart issues Father Family Medical History: Cancer Additional Family Medical History / Comment(s): Unknown CA <Rodo Diallo - Last Filed: 12/15/19 22:42> General Exam Limitations: no limitations General appearance: alert, in no apparent distress, obese Head exam: Present: atraumatic, normocephalic, normal inspection Eye exam: Present: normal appearance, PERRL, EOMI Pupils: Present: normal accommodation ENT exam: Present: normal exam, normal oropharynx, mucous membranes moist Neck exam: Present: normal inspection, full ROM. Absent: tenderness Respiratory exam: Present: normal lung sounds bilaterally. Absent: respiratory distress, wheezes, rales, rhonchi, stridor, chest wall tenderness Cardiovascular Exam: Present: regular rate, normal rhythm, normal heart sounds GI/Abdominal exam: Present: soft, tenderness, other (Incision site healing well. There is one site at the body flap that appear more excoriated at the staple site. no discharge noted. the tape is not holding well there. ). Absent: distended, guarding, rebound, rigid Extremities exam: Present: normal inspection, full ROM. Absent: tenderness Back exam: Present: normal inspection, full ROM. Absent: tenderness Neurological exam: Present: alert, oriented X3 Psychiatric exam: Present: normal affect, normal mood Skin exam: Present: warm, dry, intact, normal color <Rodo Diallo - Last Filed: 12/15/19 22:42> Course Vital Signs 12/15/19 12/15/19 16:35 17:55 Temperature 97.8 F 98.2 F Pulse Rate 81 62 Respiratory 18 18 Rate Blood Pressure 113/61 98/69 O2 Sat by Pulse 97 96 Oximetry Medical Decision Making <Rodo Diallo - Last Filed: 12/15/19 22:42> <Mag De La Garza - Last Filed: 12/16/19 13:37> - Medical Decision Making Patient is 69-year-old female presenting to emergency Department with chief complaint of sinus type problems. On exam, patient did have a small regional excoriation under her body flap where the incision tape was not covering the site. She had stuffed extra gauze in there. It tape was removed and new dressing gauze tape was applied. Patient tolerated procedure well. No signs of infection at this time. Patient is set to follow with the surgeon in 3 days. also examined the patient and is in agreement with the treatment plan. (Rodo Diallo) I was available for consultation in the emergency department. The history and physical exam were done by the midlevel provider. I was consulted for this patients care. I reviewed the case with the midlevel provider and based on their presentation of the patient, I agree with the assessment, medical decision making and plan of care as documented. I examined the patients site myself. Mild crusted dried blood. No active bleeding. No pustular drainage. No surrounding cellulitic changes. Patient has follow up on Tuesday with Dr. Corley. Chart was dictated using [employer] dictation software. Attempts were made to correct any dictation errors however some typographical errors may persist. Patient was seen during a national state of emergency due to the Covid-19 pandemic. (Mag De La Garza) Disposition Is patient prescribed a controlled substance at d/c from ED?: No Time of Disposition: 17:45 <Rodo Diallo - Last Filed: 12/15/19 22:42> <Mag De La Garza - Last Filed: 12/16/19 13:37> Clinical Impression: Dressing change or removal, surgical wound Disposition: HOME SELF-CARE Condition: Stable Instructions (If sedation given, give patient instructions): Wound Healing and Your Diet (ED) Additional Instructions: Follow-up with your surgeon. Return to emergency department if symptoms worsen. Monitor for signs of infection. Referrals: Ruben Mitchell MD [Primary Care Provider] - 1-2 days
[2019-12-15 17:56] VITALS: BP 98/69; PULSE 62; TEMP 98.2
== END 2019-12-15 17:56 | disposition home or self-care (01) ==
LOC: EC 16:32
DX: Z48.01 Encounter for change or removal of surgical wound dressing (principal); S30.811A Abrasion of abdominal wall, initial encounter; N18.6 End stage renal disease; H91.93 Unspecified hearing loss, bilateral; K21.9 Gastro-esophageal reflux disease without esophagitis; F41.9 Anxiety disorder, unspecified; Z79.82 Long term (current) use of aspirin; Z79.899 Other long term (current) drug therapy; Z88.0 Allergy status to penicillin; Z88.2 Allergy status to sulfonamides; Z91.048 Other nonmedicinal substance allergy status; Z88.8 Allergy status to other drugs, medicaments and biological substances; Z88.1 Allergy status to other antibiotic agents; Z99.2 Dependence on renal dialysis; Z85.828 Personal history of other malignant neoplasm of skin; Z85.038 Personal history of other malignant neoplasm of large intestine; Z96.652 Presence of left artificial knee joint; Z90.89 Acquired absence of other organs; Z87.891 Personal history of nicotine dependence; Y83.8 Other surgical procedures as the cause of abnormal reaction of the patient, or of later complication, without mention of misadventure at the time of the procedure
CPT/HCPCS: 99283

== ENCOUNTER → 2020-07-28 | Outpatient (CLI) | payer MEDICARE, OTHER ==
[2020-07-28 19:23] LABS: HCT 32.3 % (37.2-46.3); HGB 10.2 g/dL (12.0-15.0); MCH 31.4 pg (27.0-32.0); MCHC 31.6 g/dL (32.0-37.0); MCV 99.4 fL (80.0-97.0); Mean Platelet Volume 9.3 fL (9.5-12.2); Platelet Count 109 X 10*3/uL (140-440); RBC 3.25 X 10*6/uL (4.10-5.20); RDW 14.2 % (11.5-14.5)
[2020-07-29 01:32] LABS: African American GFR (CKD) 10.4 (60.0-200.0); Albumin 4.1 g/dL (3.80-4.90); Albumin/Globulin Ratio 2.16 (1.60-3.17); Anion Gap 13.8 mmol/L (4.00-12.00); BUN/Creat Ratio 9.13 Ratio (12.00-20.00); Calcium 9.7 mg/dL (8.7-10.3); Carbon Dioxide 24.2 mmol/L (21.6-31.8); Chol/HDL Ratio 4.59; Globulin 1.9 g/dL (1.6-3.3); Potassium 4.6 mmol/L (3.5-5.5); Total Bilirubin 0.3 mg/dL (0.2-1.2)
[2020-07-30 20:47] LABS: Hemoglobin A1C 5.6 % (4.0-6.0)
== END | disposition home or self-care (01) ==
LOC: LABWHC1 12:30
PROVIDERS: ATTEND Pediatrics
DX: C18.9 Malignant neoplasm of colon, unspecified (principal); N18.6 End stage renal disease; E66.9 Obesity, unspecified
CPT/HCPCS: 36415; 80053; 80061; 83036; 85027

== ENCOUNTER 2021-03-16 09:33 | Day surgery (SDC) | payer MEDICARE, OTHER ==
[2021-03-12 14:18] VITALS: BMI 39.0
[~2021-03-16 09:33] MED LIST changes: -ACETAMINOPHEN TAB 500 MG TAB ONE; -ACETAMINOPHEN TAB 500 MG TAB PO ONE; -DEXAMETHASONE SOD PHOSPHATE 10 MG/ML 1 ML VIAL IV ONE; -HEPARIN SODIUM,PORCINE 5,000 UNIT/ML 1 ML VIAL ONE; -HEPARIN SODIUM,PORCINE 5,000 UNIT/ML 1 ML VIAL SQ ONE; +LACTATED RINGERS 1,000 ML IV SCH; -LIDOCAINE 1% (10MG/ML) FOR IV START INTRADERMA PRN; -MIDAZOLAM 2 MG/2 ML VIAL IV PRN; -ONDANSETRON 4 MG/2 ML VIAL IVP ONE; -ONDANSETRON 4 MG/2 ML VIAL ONE
[2021-03-16 10:21] VITALS: TEMP 97.1
[2021-03-16] MEDS ORDERED: SODIUM CHLORIDE 0.9% 500 ML 500 ML IV ONE (10:32)
[2021-03-16] MEDS ORDERED: PROPOFOL 10 MG/ML 20 ML VIAL IV ONE (11:10)
--- NOTE | 2021-03-16 11:11 | P.GSHP ---
History of Present Illness H&P Date: 03/16/21 Chief Complaint: History of rectal bleeding, history of colon cancer This a 70-year-old female with rectal bleeding. She presents today for colonoscopy. Past Medical History Past Medical History: Cancer, Dialysis, GERD/Reflux, GI Bleed, Hearing Disorder / Deafness, Hypertension, Osteoarthritis (OA), Renal Disease Additional Past Medical History / Comment(s): hemodialysis T//, mineral bone disease, mild heart enlargement, skin cancer removed from nose, lower GI bleed years ago, UTI, [place] bilaterally with hearing aides, colon cancer, blood on occult stool test, History of Any Multi-Drug Resistant Organisms: None Reported Past Surgical History: Appendectomy, Bowel Resection, Joint Replacement, Tonsillectomy Additional Past Surgical History / Comment(s): left arm fistula, colonoscopy, skin cancer removed from nose, total right knee arthroplasty, luis alberto cataracts Past Anesthesia/Blood Transfusion Reactions: Previous Problems w/ Anesthesia Additional Past Anesthesia/Blood Transfusion Reaction / Comment(s): Difficulty waking Smoking Status: Former smoker - Past Family History Mother Family Medical History: COPD Additional Family Medical History / Comment(s): Heart issues Father Family Medical History: Cancer Additional Family Medical History / Comment(s): Unknown CA Medications and Allergies Home Medications Medication Instructions Recorded Confirmed Type Aspirin 81 mg PO DAILY PRN 12/14/14 03/12/21 History Sevelamer [Renvela] 1,600 mg PO TID-W/MEALS 12/13/17 03/12/21 History Omeprazole 40 mg PO DAILY 11/27/18 03/12/21 History Furosemide [Lasix] 20 mg PO HS 11/15/19 03/12/21 History Metoprolol Tartrate [Lopressor] 25 mg PO BID 11/15/19 03/12/21 History ALPRAZolam [Xanax] 0.25 mg PO DAILY PRN 11/27/19 03/12/21 History DULoxetine HCL [Cymbalta] 60 mg PO DAILY 11/27/19 03/12/21 History Folic Acid-Vit B Complex-Vit C 1 mg PO DAILY 03/12/21 03/12/21 History [Nephrocaps] Allergies Allergy/AdvReac Type Severity Reaction Status Date / Time amoxicillin trihydrate Allergy Anaphylaxis Verified 03/16/21 10:21 [From Augmentin] iodine Allergy Anaphylaxis Verified 03/16/21 10:21 menthol Allergy Unknown Verified 03/16/21 10:21 potassium clavulanate Allergy Anaphylaxis Verified 03/16/21 10:21 [From Augmentin] sulfasalazine Allergy Unknown Verified 03/16/21 10:21 [From Azulfidine] Surgical - Exam Vital Signs Temp Pulse Resp BP Pulse Ox 97.1 F L 75 18 144/65 96 03/16/21 10:19 03/16/21 10:19 03/16/21 10:19 03/16/21 10:19 03/16/21 10:19 - General well developed, well nourished, no distress - Eyes PERRL - ENT normal pinna - Neck no masses - Respiratory normal expansion - Cardiovascular Rhythm: regular - Abdomen Abdomen: soft, non tender Results - Labs 03/16/21 10:35 Diabetes panel 03/16/21 Range/Units 10:35 Potassium 4.3 (3.5-5.1) mmol/L Pituitary panel 03/16/21 Range/Units 10:35 Potassium 4.3 (3.5-5.1) mmol/L Adrenal panel 03/16/21 Range/Units 10:35 Potassium 4.3 (3.5-5.1) mmol/L Assessment and Plan Assessment: Bleeding. We'll perform colonoscopy.
--- NOTE | 2021-03-16 11:27 | P.OP ---
Date of Procedure: 03/16/21 Preoperative Diagnosis: Rectal bleeding Postoperative Diagnosis: Multiple polyps at previous colonic anastomosis Procedure(s) Performed: Colonoscopy with polypectomy and ink tattoo Anesthesia: MAC Surgeon: El Corley Pathology: other (Polyp at 41 cm) Condition: stable Disposition: PACU Description of Procedure: The patient's placed on the endoscopy table in the lateral position. She received IV sedation. Digital rectal exam was performed which revealed external hemorrhoids. Flexible colonoscope was then placed patient anus and passed throughout the entire colon. The ileocecal valve was visualized. The cecum, ascending and transverse colon appeared normal. In the descending colon at a pr ostate 41 cm there was an anastomosis visualized. There was polypoid tumors along the anastomosis. This was biopsied. The area was also tattooed with ink proximally. The remainder of the descending colon and; appeared normal. The rectum appeared normal. Scope withdrawn for patient.
[2021-03-16 11:45] VITALS: BP 131/79; PULSE 67; RESP 14
== END 2021-03-16 12:35 | disposition home or self-care (01) ==
LOC: ORWHC2ENDO 09:33
PROVIDERS: ATTEND Surgery
DX: K63.89 Other specified diseases of intestine (principal); I10 Essential (primary) hypertension; M19.90 Unspecified osteoarthritis, unspecified site; Z87.891 Personal history of nicotine dependence
CPT/HCPCS: 45380; 45381; 88305; 84132; J2704

== ENCOUNTER 2021-06-25 12:27 | Observation (INO) | payer MEDICARE, OTHER ==
[2021-06-25 13:52] LABS: Anisocytosis Slight; Basophils % (A) 0 %; Eosinophils # (A) 0.2 k/uL (0-0.7); Eosinophils % (A) 4 %; HCT 41.2 % (34.0-46.0); HGB 13.4 gm/dL (11.4-16.0); Hypochromasia Slight; Lymphocytes # (A) 0.4 k/uL (1.0-4.8); Lymphocytes % (A) 10 %; MCH 31.1 pg (25.0-35.0); MCHC 32.5 g/dL (31.0-37.0); MCV 95.7 fL (80.0-100.0); Mean Platelet Volume 7.5; Monocytes # (A) 0.2 k/uL (0-1.0); Monocytes % (A) 4 %; Neutrophils # (A) 3.3 k/uL (1.3-7.7); Neutrophils % (A) 79 %; Platelet Count 102 k/uL (150-450); RDW 17.4 % (11.5-15.5); WBC 4.2 k/uL (3.8-10.6)
--- NOTE | 2021-06-25 14:01 | XR ---
EXAMINATION TYPE: XR chest 2V DATE OF EXAM: 06/25/2021 COMPARISON: Chest x-ray 12/08/2019 HISTORY: Chest pain TECHNIQUE: Frontal and lateral views of the chest are obtained. FINDINGS: There is no focal air space opacity, pleural effusion, or pneumothorax seen. The cardiac silhouette size is within normal limits. There is elevation of right hemidiaphragm as on prior exam. Arthropathy present at the chromic clavicular joints. The osseous structures are intact. IMPRESSION: No acute cardiopulmonary process.
[2021-06-25 14:06] LABS: Appearance,Urine Cloudy (Clear); Bacteria,Urine Rare /hpf; Bilirubin,Urine Negative (Negative); Blood,Urine Negative (Negative); Color,Urine Yellow; Glucose,Urine (UA) Negative (Negative); Ketones,Urine Negative (Negative); Leukocyte Esterase,Urine Small (Negative); Nitrite,Urine Negative (Negative); PH, Urine 7.5 (5.0-8.0); Protein,Urine 1+ (Negative); RBC,Urine 1 /hpf (0-5); Specific Gravity,Urine 1.013 (1.001-1.035); Squamous Epithelial Cell,Urine 15 /hpf (0-4); Urobilinogen,Urine <2.0 mg/dL (<2.0); WBC,Urine 8 /hpf (0-5)
[2021-06-25] MEDS ORDERED: MORPHINE SULFATE 2 MG/ML SYRINGE IVP STA (14:19)
--- NOTE | 2021-06-25 14:27 | ED ---
General Adult HPI - General Chief complaint: ENT Stated complaint: Vaccine Reaction Time Seen by Provider: 06/25/21 12:37 Source: patient Mode of arrival: ambulatory Limitations: no limitations - History of Present Illness Initial comments: This 70-year-old female with past medical history of kidney disease, hypertension, GERD presents emergency department with ear pain, headache, chest discomfort, increased shortness of breath and pain with coughing/deep breathing since Tuesday. Patient states she received her booster COVID-19 vaccine on Tuesday morning and since Tuesday afternoon has been experiencing a lot of these symptoms. Patient states she has had ear pain and a slowly progressing headache. Patient states her ear pain and headache rated about 4/10. Patient denies her headache coming on all of a sudden or being the worst headache of her life. Patient denies any hemoptysis, hematochezia or hematuria. Patient states she is also been experiencing episodic chest pain with coughing and deep breathing that seems to come and go. Patient denies any abdominal pain, vomiting, change in bowel or bladder, change in vision, one-sided weakness, lightheadedness, dizziness, shortness of breath. Patient states she does have kidney disease and states she does get dialysis Tuesdays, , and Saturdays, however she did not go today and presented here instead. - Related Data Home Medications Medication Instructions Recorded Confirmed Aspirin 81 mg PO DAILY 12/14/14 06/25/21 Sevelamer [Renvela] 800 mg PO TID-W/MEALS 12/13/17 06/25/21 Omeprazole 40 mg PO DAILY 11/27/18 06/25/21 Furosemide [Lasix] 20 mg PO HS 11/15/19 06/25/21 Metoprolol Tartrate [Lopressor] 50 mg PO HS 11/15/19 06/25/21 ALPRAZolam [Xanax] 0.25 mg PO HS PRN 11/27/19 06/25/21 Acetaminophen [Tylenol 8 Hour] 650 mg PO DAILY PRN 06/25/21 06/25/21 DULoxetine HCL [Cymbalta] 60 mg PO DAILY 06/25/21 06/25/21 Lidocaine-Prilocaine Cream [Emla 1 applic TOPICAL DAILY PRN 06/25/21 06/25/21 Cream 2.5%/2.5%] Nephro-Callie 0.8mg 0.8 mg PO DAILY 06/25/21 06/25/21 Allergies Allergy/AdvReac Type Severity Reaction Status Date / Time amoxicillin trihydrate Allergy Anaphylaxis Verified 06/25/21 13:23 [From Augmentin] iodine Allergy Anaphylaxis Verified 06/25/21 13:23 menthol Allergy Unknown Verified 06/25/21 13:23 potassium clavulanate Allergy Anaphylaxis Verified 06/25/21 13:23 [From Augmentin] sulfasalazine Allergy Unknown Verified 06/25/21 13:23 [From Azulfidine] Review of Systems ROS Statement: Those systems with pertinent positive or pertinent negative responses have been documented in the HPI. ROS Other: All systems not noted in ROS Statement are negative. Past Medical History Past Medical History: Cancer, Dialysis, GERD/Reflux, GI Bleed, Hearing Disorder / Deafness, Hypertension, Osteoarthritis (OA), Renal Disease Additional Past Medical History / Comment(s): hemodialysis T//, mineral bone disease, mild heart enlargement, skin cancer removed from nose, lower GI bleed years ago, UTI, [place] bilaterally with hearing aides, colon cancer, blood on occult stool test, dialysis History of Any Multi-Drug Resistant Organisms: None Reported Past Surgical History: Appendectomy, Bowel Resection, Joint Replacement, Tonsillectomy Additional Past Surgical History / Comment(s): left arm fistula, colonoscopy, skin cancer removed from nose, total right knee arthroplasty, luis alberto cataracts Past Anesthesia/Blood Transfusion Reactions: Previous Problems w/ Anesthesia Additional Past Anesthesia/Blood Transfusion Reaction / Comment(s): Difficulty waking Past Psychological History: No Psychological Hx Reported Smoking Status: Former smoker Past Alcohol Use History: None Reported Past Drug Use History: None Reported - Past Family History Mother Family Medical History: COPD Additional Family Medical History / Comment(s): Heart issues Father Family Medical History: Cancer Additional Family Medical History / Comment(s): Unknown [place] General Exam Limitations: no limitations General appearance: alert, in no apparent distress Head exam: Present: atraumatic, normocephalic, normal inspection Eye exam: Present: normal appearance, PERRL, EOMI. Absent: scleral icterus, conjunctival injection, periorbital swelling Pupils: Present: normal accommodation ENT exam: Present: normal exam, mucous membranes moist, TM's normal bilaterally, normal external ear exam Neck exam: Present: normal inspection, full ROM. Absent: tenderness, meningismus, lymphadenopathy Respiratory exam: Present: normal lung sounds bilaterally. Absent: respiratory distress, wheezes, rales, rhonchi, stridor, chest wall tenderness Cardiovascular Exam: Present: regular rate, normal rhythm, normal heart sounds. Absent: systolic murmur, diastolic murmur, rubs, gallop, clicks GI/Abdominal exam: Present: soft, normal bowel sounds. Absent: distended, tenderness, guarding, rebound, rigid Extremities exam: Present: normal inspection (Patient with fistula to left inner arm), full ROM, normal capillary refill, pedal edema. Absent: tenderness, joint swelling, calf tenderness Back exam: Present: normal inspection, full ROM. Absent: CVA tenderness (R), CVA tenderness (L), paraspinal tenderness, vertebral tenderness Neurological exam: Present: alert, oriented X3, CN II-XII intact, normal gait, other (I did have patient get up and use walker. Patient was able to walk straight line. Patient neurovascularly intact without any one-sided weakness or change in vision. Patient able to perform rapid alternating movements, finger to nose intact external signs of gaze) Psychiatric exam: Present: normal affect, normal mood Skin exam: Present: warm, dry, intact, normal color. Absent: rash Course Vital Signs 06/25/21 06/25/21 12:30 13:34 Temperature 97.9 F Pulse Rate 78 76 Respiratory 18 18 Rate Blood Pressure 141/106 114/45 O2 Sat by Pulse 96 97 Oximetry EKG Findings - EKG Comments: EKG Findings:: EKG impression: Sinus rhythm. Ventricular rate 75 bpm. UT interval 185. QRS duration 110. QT/QTC 353/381 Medical Decision Making - Medical Decision Making This 70-year-old female presents emergency Department with bilateral ear pain, increased shortness of breath, chest pain that began on Tuesday after receiving her COVID-19 vaccination. Patient with d-dimer of 2.94, VQ scan ordered due to patient having creatinine of 6.12 and BUN of 44 because she did not receive her dialysis that was scheduled for today. Patient BNP 4980. Chest x-ray without any acute cardiopulmonary process. Case discussed in detail with my attending, who also saw and evaluated patient. Spoke with who agreed to admit patient to his services with nephrology consulted for dialysis treatment. Patient verbally agreed to stay in the hospital for further workup, evaluation and treatment. - Lab Data Result diagrams: 06/25/21 13:40 06/25/21 14:10 Lab Results 06/25/21 06/25/21 06/25/21 Range/Units 13:40 13:40 13:40 WBC 4.2 (3.8-10.6) k/uL RBC 4.30 (3.80-5.40) m/uL Hgb 13.4 (11.4-16.0) gm/dL Hct 41.2 (34.0-46.0) % MCV 95.7 (80.0-100.0) fL MCH 31.1 (25.0-35.0) pg MCHC 32.5 (31.0-37.0) g/dL RDW 17.4 H (11.5-15.5) % Plt Count 102 L (150-450) k/uL MPV 7.5 Neutrophils % 79 % Lymphocytes % 10 % Monocytes % 4 % Eosinophils % 4 % Basophils % 0 % Neutrophils # 3.3 (1.3-7.7) k/uL Lymphocytes # 0.4 L (1.0-4.8) k/uL Monocytes # 0.2 (0-1.0) k/uL Eosinophils # 0.2 (0-0.7) k/uL Basophils # 0.0 (0-0.2) k/uL Hypochromasia Slight Anisocytosis Slight PT 11.6 (9.0-12.0) sec INR 1.1 (<1.2) APTT 25.2 (22.0-30.0) sec D-Dimer 2.94 H (<0.60) mg/L FEU Sodium (137-145) mmol/L Potassium (3.5-5.1) mmol/L Chloride (98-107) mmol/L Carbon Dioxide (22-30) mmol/L Anion Gap mmol/L BUN (7-17) mg/dL Creatinine (0.52-1.04) mg/dL Est GFR (CKD-EPI)AfAm (>60 ml/min/1.73 sqM) Est GFR (CKD-EPI)NonAf (>60 ml/min/1.73 sqM) Glucose (74-99) mg/dL Calcium (8.4-10.2) mg/dL Magnesium (1.6-2.3) mg/dL Total Bilirubin (0.2-1.3) mg/dL AST (14-36) U/L ALT (4-34) U/L Alkaline Phosphatase (38-126) U/L Troponin I (0.000-0.034) ng/mL NT-Pro-B Natriuret Pep 4980 pg/mL Total Protein (6.3-8.2) g/dL Albumin (3.5-5.0) g/dL Lipase (23-300) U/L Urine Color Urine Appearance (Clear) Urine pH (5.0-8.0) Ur Specific [place] (1.001-1.035) Urine Protein (Negative) Urine Glucose (UA) (Negative) Urine Ketones (Negative) Urine Blood (Negative) Urine Nitrite (Negative) Urine Bilirubin (Negative) Urine Urobilinogen (<2.0) mg/dL Ur Leukocyte Esterase (Negative) Urine RBC (0-5) /hpf Urine WBC (0-5) /hpf Ur Squamous Epith Cells (0-4) /hpf Urine Bacteria (None) /hpf 06/25/21 06/25/21 06/25/21 Range/Units 13:41 14:10 14:10 WBC (3.8-10.6) k/uL RBC (3.80-5.40) m/uL Hgb (11.4-16.0) gm/dL Hct (34.0-46.0) % MCV (80.0-100.0) fL MCH (25.0-35.0) pg MCHC (31.0-37.0) g/dL RDW (11.5-15.5) % Plt Count (150-450) k/uL MPV Neutrophils % % Lymphocytes % % Monocytes % % Eosinophils % % Basophils % % Neutrophils # (1.3-7.7) k/uL Lymphocytes # (1.0-4.8) k/uL Monocytes # (0-1.0) k/uL Eosinophils # (0-0.7) k/uL Basophils # (0-0.2) k/uL Hypochromasia Anisocytosis PT (9.0-12.0) sec INR (<1.2) APTT (22.0-30.0) sec D-Dimer (<0.60) mg/L FEU Sodium 133 L (137-145) mmol/L Potassium 4.6 (3.5-5.1) mmol/L Chloride 100 (98-107) mmol/L Carbon Dioxide 21 L (22-30) mmol/L Anion Gap 12 mmol/L BUN 44 H (7-17) mg/dL Creatinine 6.12 H (0.52-1.04) mg/dL Est GFR (CKD-EPI)AfAm 7 (>60 ml/min/1.73 sqM) Est GFR (CKD-EPI)NonAf 6 (>60 ml/min/1.73 sqM) Glucose 129 H (74-99) mg/dL Calcium 8.9 (8.4-10.2) mg/dL Magnesium 1.8 (1.6-2.3) mg/dL Total Bilirubin 0.9 (0.2-1.3) mg/dL AST 51 H (14-36) U/L ALT 36 H (4-34) U/L Alkaline Phosphatase 100 (38-126) U/L Troponin I <0.012 (0.000-0.034) ng/mL NT-Pro-B Natriuret Pep pg/mL Total Protein 6.5 (6.3-8.2) g/dL Albumin 3.5 (3.5-5.0) g/dL Lipase 68 (23-300) U/L Urine Color Yellow Urine Appearance Cloudy H (Clear) Urine pH 7.5 (5.0-8.0) Ur Specific [place] 1.013 (1.001-1.035) Urine Protein 1+ H (Negative) Urine Glucose (UA) Negative (Negative) Urine Ketones Negative (Negative) Urine Blood Negative (Negative) Urine Nitrite Negative (Negative) Urine Bilirubin Negative (Negative) Urine Urobilinogen <2.0 (<2.0) mg/dL Ur Leukocyte Esterase Small H (Negative) Urine RBC 1 (0-5) /hpf Urine WBC 8 H (0-5) /hpf Ur Squamous Epith Cells 15 H (0-4) /hpf Urine Bacteria Rare H (None) /hpf Disposition Clinical Impression: Shortness of breath, Chest discomfort, Ear pain, Chronic kidney disease, Headache Disposition: ADMITTED IP TO THIS [facility] Condition: Serious
[2021-06-25 14:31] LABS: INR 1.1 (<1.2); Partial Thromboplastin Time 25.2 sec (22.0-30.0); Prothrombin Time 11.6 sec (9.0-12.0)
[2021-06-25 14:40] LABS: Albumin 3.5 g/dL (3.5-5.0); Calcium 8.9 mg/dL (8.4-10.2); Magnesium 1.8 mg/dL (1.6-2.3); Potassium 4.6 mmol/L (3.5-5.1); Total Bilirubin 0.9 mg/dL (0.2-1.3); Total Protein 6.5 g/dL (6.3-8.2)
[2021-06-25] MEDS ORDERED: NALOXONE 0.4 MG/ML 1 ML VIAL IV PRN (16:12)
[2021-06-25] MEDS ORDERED: CALCIUM CARBONATE 500 MG CHEWABLE PO PRN (16:56)
[2021-06-25] MEDS ORDERED: ACETAMINOPHEN TAB 325 MG TAB PO PRN ×2 (16:56)
[2021-06-25] MEDS ORDERED: MELATONIN 3 MG TABLET PO PRN (16:56)
[2021-06-25] MEDS ORDERED: ALPRAZolam 0.25 MG TAB PO PRN (16:56)
[2021-06-25] MEDS ORDERED: ONDANSETRON 4 MG/2 ML VIAL IVP PRN (16:56)
[2021-06-25] MEDS ORDERED: LACTULOSE 20 GM/30 ML CUP PO PRN (16:56)
[2021-06-25] MEDS ORDERED: LORazepam 0.5 MG TAB PO PRN (16:56)
--- NOTE | 2021-06-25 17:57 | NM ---
EXAMINATION TYPE: NM pul perfusion DATE OF EXAM: 06/25/2021 COMPARISON: Chest x-ray same date HISTORY: Chest pain, difficulty breathing Following administration of 5.1 mCi Tc 99m MAA. Images obtained post injection. FINDINGS: There is no perfusion defect. IMPRESSION: Normal perfusion scan
[2021-06-25] MEDS: SEVELAMER 800 MG TAB PO SCH (21:33)
[2021-06-25] MEDS: FUROSEMIDE 20 MG TAB PO SCH (22:35)
[2021-06-25] MEDS: METOPROLOL TARTRATE 25 MG TAB PO SCH (22:35)
[2021-06-26] MEDS: SODIUM CHLORIDE 0.9% 1,000 ML IV SCH ×2 (00:16→06:50)
--- NOTE | 2021-06-26 08:17 | P.NPCON ---
History of Present Illness - Reason for Consult end stage renal disease - History of Present Illness Reason for consultation: End-stage renal disease History of present illness: Patient is a 70-year-old female seen in renal consultation for end-stage liver disease. She is maintained on hemodialysis on Tuesday schedule. Patient states she got Covid vaccination on Tuesday and starting Tuesday night, she started feeling ill. Patient says she's been having dizziness, intermittent chest pain, as well as ear pain. She was also having vomiting and diarrhea which is now improved. She did have dinner last night. Last dialysis was on Tuesday. She missed yesterday's treatment due to not feeling well. Potassium level yesterday on admission was 4.6. Blood pressure stable. No fever or chills. Did have a mild cough but better now. Headache resolved. Chest x-ray showed no evidence of volume overload. V/Q scan showed normal perfusion. Currently awake and alert. No edema. Overall feels better. Vital signs are stable. General: The patient appeared well nourished and normally developed. HEENT: Head exam is unremarkable. LUNGS: Breath sounds decreased. HEART: Rate and Rhythm are regular. ABDOMEN: Soft, no distention. EXTREMITITES: No edema. Past Medical History Past Medical History: Cancer, Dialysis, GERD/Reflux, GI Bleed, Hearing Disorder / Deafness, Hypertension, Osteoarthritis (OA), Renal Disease Additional Past Medical History / Comment(s): hemodialysis //, mineral bone disease, mild heart enlargement, skin cancer removed from nose, lower GI bleed years ago, UTI, [place] bilaterally with hearing aides, colon cancer, blood on occult stool test, dialysis History of Any Multi-Drug Resistant Organisms: None Reported Past Surgical History: Appendectomy, Bowel Resection, Joint Replacement, Tonsillectomy Additional Past Surgical History / Comment(s): left arm fistula, colonoscopy, skin cancer removed from nose, total right knee arthroplasty, luis alberto cataracts Past Anesthesia/Blood Transfusion Reactions: Previous Problems w/ Anesthesia Additional Past Anesthesia/Blood Transfusion Reaction / Comment(s): Difficulty waking Past Psychological History: No Psychological Hx Reported Smoking Status: Former smoker Past Alcohol Use History: None Reported Additional Past Alcohol Use History / Comment(s): Pt smoked briefly age 19 to 20 then quit. smoked 3 cig per week Past Drug Use History: None Reported - Past Family History Mother Family Medical History: COPD Additional Family Medical History / Comment(s): Heart issues Father Family Medical History: Cancer Additional Family Medical History / Comment(s): Unknown [place] Medications and Allergies Home Medications Medication Instructions Recorded Confirmed Type Aspirin 81 mg PO DAILY 12/14/14 06/25/21 History Sevelamer [Renvela] 800 mg PO TID-W/MEALS 12/13/17 06/25/21 History Omeprazole 40 mg PO DAILY 11/27/18 06/25/21 History Furosemide [Lasix] 20 mg PO HS 11/15/19 06/25/21 History Metoprolol Tartrate [Lopressor] 50 mg PO HS 11/15/19 06/25/21 History ALPRAZolam [Xanax] 0.25 mg PO HS PRN 11/27/19 06/25/21 History Acetaminophen [Tylenol 8 Hour] 650 mg PO DAILY PRN 06/25/21 06/25/21 History DULoxetine HCL [Cymbalta] 60 mg PO DAILY 06/25/21 06/25/21 History Lidocaine-Prilocaine Cream [Emla 1 applic TOPICAL DAILY PRN 06/25/21 06/25/21 History Cream 2.5%/2.5%] Nephro-Callie 0.8mg 0.8 mg PO DAILY 06/25/21 06/25/21 History Allergies Allergy/AdvReac Type Severity Reaction Status Date / Time amoxicillin trihydrate Allergy Anaphylaxis Verified 06/25/21 13:23 [From Augmentin] iodine Allergy Anaphylaxis Verified 06/25/21 13:23 menthol Allergy Unknown Verified 06/25/21 13:23 potassium clavulanate Allergy Anaphylaxis Verified 06/25/21 13:23 [From Augmentin] sulfasalazine Allergy Unknown Verified 06/25/21 13:23 [From Azulfidine] Physical Exam Vitals: Vital Signs Temp Pulse Pulse Resp BP BP Pulse Ox 06/26/21 02:10 98.4 F 80 18 100/57 93 L 06/26/21 02:00 84 18 06/25/21 22:37 18 06/25/21 22:11 98.0 F 84 17 119/77 98 06/25/21 21:00 76 18 114/54 95 06/25/21 13:34 76 18 114/45 97 06/25/21 12:30 97.9 F 78 18 141/106 96 Intake and Output 06/25/21 06/26/21 06/26/21 22:59 06:59 14:59 Other: Voiding Method Toilet Toilet # Voids 1 Weight 90.718 kg Results - Lab Results Most recent lab results Calcium 8.9 mg/dL (8.4-10.2) 06/25/21 14:10 Magnesium 1.8 mg/dL (1.6-2.3) 06/25/21 14:10 06/25/21 13:40 06/25/21 14:10 Assessment and Plan Plan: Assessment: 1. End-stage renal disease maintained on hemodialysis on Tuesday schedule. 2. Chronic kidney disease mineral bone disease maintained on Renvela. 3. ?Reaction to COVID vaccination. Plan: Hemodialysis today as she missed yesterday's treatment. Another treatment tomorrow per her outpatient schedule. Hep-Lock IV fluids. Thank you for the consultation. I will continue to follow the patient with you during her hospital stay.
[2021-06-26] MEDS: PANTOPRAZOLE 40 MG TABLET PO SCH (09:49)
[2021-06-26] MEDS: ASPIRIN 81 MG PO SCH (09:49)
[2021-06-26] MEDS: DULoxetine HCL 60 MG CAPSULE.DR PO SCH (09:50)
[2021-06-26] MEDS: SEVELAMER 800 MG TAB PO SCH ×3 (09:51→19:48)
[2021-06-26] MEDS: FOLIC ACID-VIT B COMPLEX-VIT C 1 CAP PO SCH (09:51)
--- NOTE | 2021-06-26 10:39 | P.HPIM ---
History of Present Illness H&P Date: 06/25/21 Chief Complaint: Feeling unwell This is a pleasant 70-year-old patient who follows with Dr. Mitchell. Chronic stable medical conditions include end-stage kidney disease on hemodialysis left upper extremity AV fistula, GERD, decreased hearing, hypertension, osteoarthritis, renal bone disease, history of colon cancer. 2 days ago patient got a booster dose of the COVID 19. Subsequently she been having multiple systemic symptoms. Feeling very sleepy. Vomited. Loose stools. Slight headache. Ear discomfort. Aching all over. Her appetite. [place] really tired rundown and decided to come in. Denies any cough. Review of systems: GEN.: Tired decreased appetite EYES: None HEENT: Decreased hearing NECK: None RESPIRATORY: None CARDIOVASCULAR: None GASTROINTESTINAL: As above GENITOURINARY: None MUSCULOSKELETAL: Joint pains LYMPHATICS: None HEMATOLOGICAL: None PSYCHIATRY: None NEUROLOGICAL: Does use a walker Past medical history to include: End-stage kidney disease on hemodialysis Tuesday started Tuesday with left arm AV fistula, GERD, hard of hearing with hearing aids, hypertension, osteomyelitis, minimal bone disease, skin cancer, colon cancer Social history: No smoking or alcohol. Lives alone. Does use a walker Family history: COPD, heart issues Physical examination: VITAL SIGNS: 97.9, 78, 18, 141/106, 96% room air GENERAL: BMI 39.1, laying in bed, awake, tired. EYES: Pupils equal. Conjunctiva normal. HEENT: External appearance of nose and ears normal, oral cavity dry mucous membrane. Heart of hearing NECK: JVD not raised; masses not palpable. HEART: First and second heart sounds are normal; no edema. LUNGS: Respiratory rate normal; clear to auscultation. ABDOMEN: Soft, nontender, liver spleen not palpable, no masses palpable. PSYCH: Alert and oriented x3; mood and affect normal. MUSCULOSKELETAL:No Clubbing/cyanosis;muscles-grossly intact. Evidence of OA EXTREMITIES: Left upper arm AV fistula NEUROLOGICAL: Cranial nerves grossly intact; no facial asymmetry, power and sensation grossly intact. LYMPHATICS: No lymph nodes palpable in the axilla and neck INVESTIGATIONS, reviewed in the clinical context: White count 4.2 hemoglobin 13.4 platelets 102 sodium 133 potassium 4.6 BUN 44 creatinine 6.12 AST 51 ALT 36 lipase 68 EKG tracing personally reviewed by me-normal sinus rhythm. Rate 75 Chest x-ray film personally reviewed by me-lung nesbitt clear Pulmonary perfusion scan. Negative for perfusion defect Assessment and plan: -Probable exacerbated side effect of COVID 19 booster shot Patient presents for generalized systemic symptoms including sleepy some vomiting diarrhea October sporty discomfort some shortness of breath decreased appetite tired rundown. Symptomatic treatment -Clinical dehydration from decreased oral intake nausea vomiting diarrhea Gentle hydration -End-stage kidney disease on hemodialysis Tuesday started Tuesday. Left arm AV fistula Consult nephrology for dialysis -GERD Omeprazole 40 mg daily -Hard of hearing does use hearing aids -Essential hypertension Lopressor 50 mg daily at bedtime -Primary osteoarthritis multiple joints bilateral Tylenol as needed -Minimal bone disease Renvela 800 mg 3 times a day -Chronic gait dysfunction uses a walker at baseline Fall precautions Home medications resumed. IV fluids. Consulted nephrology. Care was discussed with the patient. Subcu Lovenox. Activity as tolerated. Past Medical History Past Medical History: Cancer, Dialysis, GERD/Reflux, GI Bleed, Hearing Disorder / Deafness, Hypertension, Osteoarthritis (OA), Renal Disease Additional Past Medical History / Comment(s): hemodialysis T//, mineral bone disease, mild heart enlargement, skin cancer removed from nose, lower GI bleed years ago, UTI, [place] bilaterally with hearing aides, colon cancer, blood on occult stool test, dialysis History of Any Multi-Drug Resistant Organisms: None Reported Past Surgical History: Appendectomy, Bowel Resection, Joint Replacement, Tonsillectomy Additional Past Surgical History / Comment(s): left arm fistula, colonoscopy, skin cancer removed from nose, total right knee arthroplasty, luis alberto cataracts Past Anesthesia/Blood Transfusion Reactions: Previous Problems w/ Anesthesia Additional Past Anesthesia/Blood Transfusion Reaction / Comment(s): Difficulty waking Past Psychological History: No Psychological Hx Reported Smoking Status: Former smoker Past Alcohol Use History: None Reported Past Drug Use History: None Reported - Past Family History Mother Family Medical History: COPD Additional Family Medical History / Comment(s): Heart issues Father Family Medical History: Cancer Additional Family Medical History / Comment(s): Unknown [place] Medications and Allergies Home Medications Medication Instructions Recorded Confirmed Type Aspirin 81 mg PO DAILY 12/14/14 06/25/21 History Sevelamer [Renvela] 800 mg PO TID-W/MEALS 12/13/17 06/25/21 History Omeprazole 40 mg PO DAILY 11/27/18 06/25/21 History Furosemide [Lasix] 20 mg PO HS 11/15/19 06/25/21 History Metoprolol Tartrate [Lopressor] 50 mg PO HS 11/15/19 06/25/21 History ALPRAZolam [Xanax] 0.25 mg PO HS PRN 11/27/19 06/25/21 History Acetaminophen [Tylenol 8 Hour] 650 mg PO DAILY PRN 06/25/21 06/25/21 History DULoxetine HCL [Cymbalta] 60 mg PO DAILY 06/25/21 06/25/21 History Lidocaine-Prilocaine Cream [Emla 1 applic TOPICAL DAILY PRN 06/25/21 06/25/21 History Cream 2.5%/2.5%] Nephro-Callie 0.8mg 0.8 mg PO DAILY 06/25/21 06/25/21 History Allergies Allergy/AdvReac Type Severity Reaction Status Date / Time amoxicillin trihydrate Allergy Anaphylaxis Verified 06/25/21 13:23 [From Augmentin] iodine Allergy Anaphylaxis Verified 06/25/21 13:23 menthol Allergy Unknown Verified 06/25/21 13:23 potassium clavulanate Allergy Anaphylaxis Verified 06/25/21 13:23 [From Augmentin] sulfasalazine Allergy Unknown Verified 06/25/21 13:23 [From Azulfidine] Physical Exam Vitals: Vital Signs Temp Pulse Resp BP Pulse Ox 06/25/21 13:34 76 18 114/45 97 06/25/21 12:30 97.9 F 78 18 141/106 96 Intake and Output 06/25/21 06/25/21 06/25/21 06:59 14:59 22:59 Other: Weight 90.718 kg Results CBC & Chem 7: 06/25/21 13:40 06/25/21 14:10 Labs: Abnormal Lab Results - Last 24 Hours (Table) 06/25/21 06/25/21 06/25/21 Range/Units 13:40 13:40 13:41 RDW 17.4 H (11.5-15.5) % Plt Count 102 L (150-450) k/uL Lymphocytes # 0.4 L (1.0-4.8) k/uL D-Dimer 2.94 H (<0.60) mg/L FEU Sodium (137-145) mmol/L Carbon Dioxide (22-30) mmol/L BUN (7-17) mg/dL Creatinine (0.52-1.04) mg/dL Glucose (74-99) mg/dL AST (14-36) U/L ALT (4-34) U/L Urine Appearance Cloudy H (Clear) Urine Protein 1+ H (Negative) Ur Leukocyte Esterase Small H (Negative) Urine WBC 8 H (0-5) /hpf Ur Squamous Epith Cells 15 H (0-4) /hpf Urine Bacteria Rare H (None) /hpf 06/25/21 Range/Units 14:10 RDW (11.5-15.5) % Plt Count (150-450) k/uL Lymphocytes # (1.0-4.8) k/uL D-Dimer (<0.60) mg/L FEU Sodium 133 L (137-145) mmol/L Carbon Dioxide 21 L (22-30) mmol/L BUN 44 H (7-17) mg/dL Creatinine 6.12 H (0.52-1.04) mg/dL Glucose 129 H (74-99) mg/dL AST 51 H (14-36) U/L ALT 36 H (4-34) U/L Urine Appearance (Clear) Urine Protein (Negative) Ur Leukocyte Esterase (Negative) Urine WBC (0-5) /hpf Ur Squamous Epith Cells (0-4) /hpf Urine Bacteria (None) /hpf
[2021-06-26] MEDS: ENOXAPARIN 40 MG/0.4 ML SYRINGE SQ SCH (16:47)
--- NOTE | 2021-06-26 18:14 | P.PN ---
Progress Note - Text Progress Note Date: 06/26/21 Chief Complaint: Feeling unwell This is a pleasant 70-year-old patient who follows with Dr. Mitchell. Chronic stable medical conditions include end-stage kidney disease on hemodialysis left upper extremity AV fistula, GERD, decreased hearing, hypertension, osteoarthriti s, renal bone disease, history of colon cancer. 2 days ago patient got a booster dose of the COVID 19. Subsequently she been having multiple systemic symptoms. Feeling very sleepy. Vomited. Loose stools. Slight headache. Ear discomfort. Aching all over. Her appetite. [place] really tired rundown and decided to come in. Denies any cough. June 26: Patient admits to hemodialysis yesterday. Hemodialysis done today. On a round tomorrow. GI symptoms better. Did eat this morning. Patient being scheduled for hemodialysis for tomorrow. No nausea vomiting. Feeling better. Active Medications Acetaminophen (Acetaminophen Tab 325 Mg Tab) 650 mg PO DAILY PRN PRN Reason: Pain Acetaminophen (Acetaminophen Tab 325 Mg Tab) 650 mg PO Q6HR PRN PRN Reason: Mild Pain or Fever > 100.5 Last Admin: 06/26/21 00:16 Dose: 650 mg Documented by: Alprazolam (Alprazolam 0.25 Mg Tab) 0.25 mg PO HS PRN PRN Reason: Anxiety Aspirin (Aspirin 81 Mg) 81 mg PO DAILY [facility] Last Admin: 06/26/21 09:49 Dose: 81 mg Documented by: Calcium Carbonate/Glycine (Calcium Carbonate 500 Mg Chewable) 1,000 mg PO Q4HR PRN PRN Reason: Dyspepsia Duloxetine HCl (Duloxetine Hcl 60 Mg Kathya.) 60 mg PO DAILY [facility] Last Admin: 06/26/21 09:50 Dose: 60 mg Documented by: Enoxaparin Sodium (Enoxaparin 40 Mg/0.4 Ml Syringe) 40 mg SQ DAILY [facility] Last Admin: 06/26/21 16:47 Dose: 40 mg Documented by: Furosemide (Furosemide 20 Mg Tab) 20 mg PO HS [facility] Last Admin: 06/25/21 22:35 Dose: 20 mg Documented by: Lactulose (Lactulose 20 Gm/30 Ml Cup) 20 gm PO DAILY PRN PRN Reason: Constipation Lorazepam (Lorazepam 0.5 Mg Tab) 0.5 mg PO Q6HR PRN PRN Reason: Anxiety Melatonin (Melatonin 3 Mg Tablet) 3 mg PO HS PRN PRN Reason: Insomnia Metoprolol Tartrate (Metoprolol Tartrate 25 Mg Tab) 50 mg PO HS [facility] Last Admin: 06/25/21 22:35 Dose: 50 mg Documented by: Multivit/Ca Carb/B Cmplx/FA/Prenat (Folic Acid-Vit B Complex-Vit C 1 Cap) 1 each PO DAILY [facility] Last Admin: 06/26/21 09:51 Dose: 1 each Documented by: Naloxone HCl (Naloxone 0.4 Mg/Ml 1 Ml Vial) 0.2 mg IV Q2M PRN PRN Reason: Opioid Reversal Ondansetron HCl (Ondansetron 4 Mg/2 Ml Vial) 4 mg IVP Q8HR PRN PRN Reason: Nausea And Vomiting Pantoprazole Sodium (Pantoprazole 40 Mg Tablet) 40 mg PO DAILY [facility] Last Admin: 06/26/21 09:49 Dose: 40 mg Documented by: Sevelamer Carbonate (Sevelamer 800 Mg Tab) 800 mg PO TID-W/MEALS [facility] Last Admin: 06/26/21 13:20 Dose: 800 mg Documented by: Past medical history to include: End-stage kidney disease on hemodialysis Tuesday started Tuesday with left arm AV fistula, GERD, hard of hearing with hearing aids, hypertension, osteomyelitis, minimal bone disease, skin cancer, colon cancer Social history: No smoking or alcohol. Lives alone. Does use a walker Family history: COPD, heart issues Physical examination: VITAL SIGNS: 97.9, 86, 16, 140/86, 98% room air GENERAL: Sitting up in bed awake, feeling better EYES: Pupils equal. Conjunctiva normal. HEENT: External appearance of nose and ears normal, oral cavity dry mucous membrane. Decreased hearing NECK: JVD not raised; masses not palpable. HEART: First and second heart sounds are normal; no edema. LUNGS: Respiratory rate normal; clear to auscultation. ABDOMEN: Soft, nontender, liver spleen not palpable, no masses palpable. PSYCH: Alert and oriented x3; mood and affect normal. MUSCULOSKELETAL:No Clubbing/cyanosis;muscles-grossly intact. Evidence of OA EXTREMITIES: Left upper arm AV fistula NEUROLOGICAL: Cranial nerves grossly intact; no facial asymmetry, power and sensation grossly intact. INVESTIGATIONS, reviewed in the clinical context: White count 4.2 hemoglobin 13.4 platelets 102 sodium 133 potassium 4.6 BUN 44 creatinine 6.12 AST 51 ALT 36 lipase 68 EKG tracing personally reviewed by me-normal sinus rhythm. Rate 75 Chest x-ray film personally reviewed by me-lung nesbitt clear Pulmonary perfusion scan. Negative for perfusion defect Assessment and plan: -Probable exacerbated side effect of COVID 19 booster shot: Better Patient presents for generalized systemic symptoms including sleepy some vomiting diarrhea Josefina sporty discomfort some shortness of breath decreased appetite tired rundown. Symptomatic treatment -Clinical dehydration from decreased oral intake nausea vomiting diarrhea: Better Gentle hydration -End-stage kidney disease on hemodialysis Tuesday started Tuesday. Left arm AV fistula Consult nephrology for dialysis -GERD Omeprazole 40 mg daily -Hard of hearing does use hearing aids -Essential hypertension Lopressor 50 mg daily at bedtime -Primary osteoarthritis multiple joints bilateral Tylenol as needed -Minimal bone disease Renvela 800 mg 3 times a day -Chronic gait dysfunction uses a walker at baseline Fall precautions Continue current medications. Tolerating diet. Hemodialysis today. For repeat hemodialysis tomorrow. DC IV fluids.
[2021-06-26] MEDS: METOPROLOL TARTRATE 25 MG TAB PO SCH (21:14)
[2021-06-26] MEDS: FUROSEMIDE 20 MG TAB PO SCH (21:14)
[2021-06-27] MEDS: SEVELAMER 800 MG TAB PO SCH ×2 (12:06)
[2021-06-27] MEDS: PANTOPRAZOLE 40 MG TABLET PO SCH (12:07)
[2021-06-27] MEDS: DULoxetine HCL 60 MG CAPSULE.DR PO SCH (12:07)
[2021-06-27] MEDS: ASPIRIN 81 MG PO SCH (12:07)
[2021-06-27] MEDS: ENOXAPARIN 40 MG/0.4 ML SYRINGE SQ SCH (12:07)
[2021-06-27] MEDS: FOLIC ACID-VIT B COMPLEX-VIT C 1 CAP PO SCH (12:09)
[2021-06-27 14:27] VITALS: BP 121/74; PULSE 82; RESP 17; TEMP 97.7
--- NOTE | 2021-06-27 17:10 | P.DS ---
Providers Date of admission: 06/25/21 16:36 Expected date of discharge: 06/27/21 Attending physician: Jose Francisco Bowie Consults: 06/25/21 16:13 Consult Physician Routine Consulting Provider: Jalil Monroy Consult Reason/Comments: Chronic kidney disease- missed dialysis today Do you want consulting provider notified?: Yes Primary care physician: Ruben Mitchell [facility] Course: Chief Complaint: Feeling unwell This is a pleasant 70-year-old patient who follows with Dr. Mitchell. Chronic stable medical conditions include end-stage kidney disease on hemodialysis left upper extremity AV fistula, GERD, decreased hearing, hypertension, osteoarthritis, renal bone disease, history of colon cancer. 2 days ago patient got a booster dose of the COVID 19. Subsequently she been having multiple systemic symptoms. Feeling very sleepy. Vomited. Loose stools. Slight headache. Ear discomfort. Aching all over. Her appetite. [place] really tired rundown and decided to come in. Denies any cough. June 26: Patient admits to hemodialysis yesterday. Hemodialysis done today. On a round tomorrow. GI symptoms better. Did eat this morning. Patient being scheduled for hemodialysis for tomorrow. No nausea vomiting. Feeling better. June 27: Patient feeling well. Eating well. Hemodialysis today. Discussed with patient. Discharged home Past medical history to include: End-stage kidney disease on hemodialysis Tuesday started Tuesday with left arm AV fistula, GERD, hard of hearing with hearing aids, hypertension, osteomyelitis, minimal bone disease, skin cancer, colon cancer Social history: No smoking or alcohol. Lives alone. Does use a walker Family history: COPD, heart issues Physical examination: VITAL SIGNS: 97.7, 82, 17, 121/74, 98% room air GENERAL: Sitting up in bed awake, comfortable EYES: Pupils equal. Conjunctiva normal. HEENT: External appearance of nose and ears normal, oral cavity dry mucous membrane. Decreased hearing NECK: JVD not raised; masses not palpable. HEART: First and second heart sounds are normal; no edema. LUNGS: Respiratory rate normal; clear to auscultation. ABDOMEN: Soft, nontender, liver spleen not palpable, no masses palpable. PSYCH: Alert and oriented x3; mood and affect normal. MUSCULOSKELETAL:No Clubbing/cyanosis;muscles-grossly intact. Evidence of OA EXTREMITIES: Left upper arm AV fistula NEUROLOGICAL: Cranial nerves grossly intact; no facial asymmetry, power and sensation grossly intact. INVESTIGATIONS, reviewed in the clinical context: White count 4.2 hemoglobin 13.4 platelets 102 sodium 133 potassium 4.6 BUN 44 creatinine 6.12 AST 51 ALT 36 lipase 68 EKG tracing personally reviewed by me-normal sinus rhythm. Rate 75 Chest x-ray film personally reviewed by me-lung nesbitt clear Pulmonary perfusion scan. Negative for perfusion defect Assessment and plan: -Probable exacerbated side effect of COVID 19 booster shot: Better Patient presents for generalized systemic symptoms including sleepy some vomiting diarrhea Josefina sporty discomfort some shortness of breath decreased appetite tired rundown. Symptomatic treatment -Clinical dehydration from decreased oral intake nausea vomiting diarrhea: Better Gentle hydration -End-stage kidney disease on hemodialysis Tuesday started Tuesday. Left arm AV fistula Consult nephrology for dialysis -GERD Omeprazole 40 mg daily -Hard of hearing does use hearing aids -Essential hypertension Lopressor 50 mg daily at bedtime -Primary osteoarthritis multiple joints bilateral Tylenol as needed -Minimal bone disease Renvela 800 mg 3 times a day -Chronic gait dysfunction uses a walker at baseline Fall precautions Disposition: Home Plan - Discharge Summary New Discharge Prescriptions: Continue Aspirin 81 mg PO DAILY Sevelamer [Renvela] 800 mg PO TID-W/MEALS Omeprazole 40 mg PO DAILY Metoprolol Tartrate [Lopressor] 50 mg PO HS Furosemide [Lasix] 20 mg PO HS ALPRAZolam [Xanax] 0.25 mg PO HS PRN PRN Reason: Anxiety Nephro-Callie 0.8mg 0.8 mg PO DAILY Lidocaine-Prilocaine Cream [Emla Cream 2.5%/2.5%] 1 applic TOPICAL DAILY PRN PRN Reason: PORT ACCESS Acetaminophen [Tylenol 8 Hour] 650 mg PO DAILY PRN PRN Reason: Pain DULoxetine HCL [Cymbalta] 60 mg PO DAILY Discharge Medication List Aspirin 81 mg PO DAILY 12/14/14 [History] Sevelamer [Renvela] 800 mg PO TID-W/MEALS 12/13/17 [History] Omeprazole 40 mg PO DAILY 11/27/18 [History] Furosemide [Lasix] 20 mg PO HS 11/15/19 [History] Metoprolol Tartrate [Lopressor] 50 mg PO HS 11/15/19 [History] ALPRAZolam [Xanax] 0.25 mg PO HS PRN 11/27/19 [History] Acetaminophen [Tylenol 8 Hour] 650 mg PO DAILY PRN 06/25/21 [History] DULoxetine HCL [Cymbalta] 60 mg PO DAILY 06/25/21 [History] Lidocaine-Prilocaine Cream [Emla Cream 2.5%/2.5%] 1 applic TOPICAL DAILY PRN 06/25/21 [History] Nephro-Callie 0.8mg 0.8 mg PO DAILY 06/25/21 [History] Follow up Appointment(s)/Referral(s): Ruben Mitchell MD [Primary Care Provider] - 1-2 days Patient Instructions/Handouts: Chronic Kidney Disease (DC) Activity/Diet/Wound Care/Special Instructions: FOLLOW UP WITH MD DIRECTED, SOONER IF PROBLEMS OR CONCERNS. CONTINUE DIALYSIS PRESCRIBED Discharge Disposition: HOME SELF-CARE
--- NOTE | 2021-06-27 17:53 | P.PN ---
Subjective Pt is seen for f/u for ESRD. No diarrhea now. No n/v/abdominal pain. Objective - Vital Signs Vital signs: Vital Signs Temp 97.7 F 06/27/21 14:26 Pulse 82 06/27/21 14:26 Resp 17 06/27/21 14:26 BP 121/74 06/27/21 14:26 Pulse Ox 98 06/27/21 14:26 Intake & Output 06/26/21 06/27/21 06/27/21 18:59 06:59 18:59 Intake Total 538 300 Output Total 1500 1800 Balance -962 300 -1800 Intake: Oral 238 300 Hemodialysis 300 Output: Hemodialysis 1500 1800 Other: Voiding Method Toilet Toilet Toilet # Voids 1 1 2 - Exam Awake, comfortable. Lungs are clear CVS S1 and S2 Abdomen soft, non tender CHIEF MATE exam intact - Labs CBC & Chem 7: 06/25/21 13:40 06/25/21 14:10 Assessment and Plan Assessment: 1. ESRD, on HD TTS schedule. S/p HD today. 2. CKD mineral bone disorder 3. Possible reaction to COVID vaccine. Plan: OK for discharge.
[2021-06-28] MEDS ORDERED: ENOXAPARIN 30 MG/0.3 ML SYRINGE SQ SCH (09:00)
== END 2021-06-27 14:43 | disposition home or self-care (01) ==
LOC: EC 12:27 → 6NMEDSUR 16:36
PROVIDERS: ADMIT Hospitalist; ATTEND Hospitalist
DX: R07.89 Other chest pain (principal); R52 Pain, unspecified; R06.02 Shortness of breath; I12.0 Hypertensive chronic kidney disease with stage 5 chronic kidney disease or end stage renal disease; N18.6 End stage renal disease; Z99.2 Dependence on renal dialysis; R51.9 Headache, unspecified; K21.9 Gastro-esophageal reflux disease without esophagitis; I51.7 Cardiomegaly; H91.90 Unspecified hearing loss, unspecified ear; H91.93 Unspecified hearing loss, bilateral; D47.4 Osteomyelofibrosis; M89.9 Disorder of bone, unspecified; Z85.828 Personal history of other malignant neoplasm of skin; M19.90 Unspecified osteoarthritis, unspecified site; Z85.038 Personal history of other malignant neoplasm of large intestine; Z87.19 Personal history of other diseases of the digestive system; Z83.6 Family history of other diseases of the respiratory system; Z82.49 Family history of ischemic heart disease and other diseases of the circulatory system; Z79.82 Long term (current) use of aspirin; Z79.899 Other long term (current) drug therapy; Z88.0 Allergy status to penicillin; Z88.2 Allergy status to sulfonamides; Z91.048 Other nonmedicinal substance allergy status; Z91.09 Other allergy status, other than to drugs and biological substances; Z87.440 Personal history of urinary (tract) infections; Z90.49 Acquired absence of other specified parts of digestive tract; Z98.890 Other specified postprocedural states; Z96.651 Presence of right artificial knee joint; Z98.42 Cataract extraction status, left eye; Z98.41 Cataract extraction status, right eye; R26.2 Difficulty in walking, not elsewhere classified; Z87.891 Personal history of nicotine dependence; Z80.9 Family history of malignant neoplasm, unspecified
CPT/HCPCS: 96361; 96372 ×2; 96374; 99285; 36415; 93005; 85379; 83880; 80053; 83690; 83735; 84484; 85025; 85610; 85730; 81001; 71046; 78580; G0378 ×3; A9540; J1650 ×2; J2270; 90935

== ENCOUNTER → 2021-10-30 | Outpatient (CLI) | payer MEDICARE, OTHER ==
[2021-10-30 14:53] LABS: Basophils # (A) 0.03 X 10*3/uL (0.00-0.10); Basophils % (A) 0.4 %; Eosinophils # (A) 0.12 X 10*3/uL (0.04-0.35); Eosinophils % (A) 1.8 %; HCT 41.8 % (37.2-46.3); HGB 12.8 g/dL (12.0-15.0); Immature Grans, Automated 0.4 %; Lymphocytes # (A) 1.98 X 10*3/uL (0.90-5.00); Lymphocytes % (A) 29.3 %; MCH 30.5 pg (27.0-32.0); MCHC 30.6 g/dL (32.0-37.0); MCV 99.5 fL (80.0-97.0); Mean Platelet Volume 8.8 fL (9.5-12.2); Monocytes # (A) 0.52 X 10*3/uL (0.20-1.00); Monocytes % (A) 7.7 %; NRBC Per 100 WBC 0 /100 WBCS (0.0-0.0); Neutrophils # (A) 4.07 X 10*3/uL (1.80-7.70); Neutrophils % (A) 60.4 %; Platelet Count 116 X 10*3/uL (140-440); RDW 14.2 % (11.5-14.5); WBC 6.75 X 10*3/uL (4.50-10.00)
[2021-10-30 15:07] LABS: ALT 59 U/L (8-44); AST 59 U/L (13-35); African American GFR (CKD) 12.7 (60.0-200.0); Albumin 4.2 g/dL (3.8-4.9); Albumin/Globulin Ratio 1.24 (1.60-3.17); Alkaline Phosphatase 124 U/L (41-126); BUN/Creat Ratio 6.15 Ratio (12.00-20.00); Calcium 10.2 mg/dL (8.7-10.3); Carbon Dioxide 24.3 mmol/L (20.0-27.5); Chloride 99 mmol/L (96-109); Chol/HDL Ratio 3.61 Ratio; Globulin 3.4 g/dL (1.6-3.3); Glucose 135 mg/dL (70-110); LDL Cholesterol,Calculated 89.7 mg/dL (0.0-131.0); Non-African American GFR(CKD) 10.9 (60.0-200.0); Potassium 4.4 mmol/L (3.5-5.5); Sodium 139 mmol/L (135-145); Total Protein 7.6 g/dL (6.2-8.2)
== END | disposition home or self-care (01) ==
LOC: LABWHC1 09:34
PROVIDERS: ATTEND Pediatrics
DX: E66.9 Obesity, unspecified (principal); N18.6 End stage renal disease
CPT/HCPCS: 36415; 80053; 80061; 85025

== ENCOUNTER 2022-01-06 11:44 | Inpatient (IN) | payer MEDICARE, OTHER ==
[2022-01-06 13:11] LABS: Appearance,Urine Clear (Clear); Bacteria,Urine Rare /hpf; Bilirubin,Urine Negative (Negative); Blood,Urine Negative (Negative); Color,Urine Light Yellow; Glucose,Urine (UA) Negative (Negative); Ketones,Urine Negative (Negative); Leukocyte Esterase,Urine Negative (Negative); Mucus,Urine Rare /hpf; Nitrite,Urine Negative (Negative); Protein,Urine 1+ (Negative); RBC,Urine <1 /hpf (0-5); Specific Gravity,Urine 1.008 (1.001-1.035); Squamous Epithelial Cell,Urine 5 /hpf (0-4); Urobilinogen,Urine <2.0 mg/dL (<2.0); WBC,Urine 1 /hpf (0-5)
--- NOTE | 2022-01-06 15:19 | ED ---
General Adult HPI - General Chief complaint: Recheck/Abnormal Lab/Rx Stated complaint: COVID+ Time Seen by Provider: 01/06/22 14:57 Source: patient Mode of arrival: wheelchair Limitations: no limitations - History of Present Illness Initial comments: Dictation was produced using SSEV dictation software. please excuse any grammatical, word or spelling errors. Chief Complaint: 71-year-old female presents to the emergency department from dialysis History of Present Illness: 71-year-old female she has past medical history of ESRD she gets dialysis Tuesday. She is a poor historian Patient missed dialysis Tuesday because of cold symptoms. Patient tested positive last week. She says she feels fine today. Patient was told by dialysis center to come to the ER for further care. Patient gets dialysis via left upper extremity access. The ROS documented in this emergency department record has been reviewed and confirmed by me. Those systems with pertinent positive or negative responses have been documented in the HPI. All other systems are other negative and/or noncontributory. PHYSICAL EXAM: General Impression: Alert and oriented x3, not in acute distress HEENT: Normocephalic atraumatic, extra-ocular movements intact, pupils equal and reactive to light bilaterally, mucous membranes moist. Cardiovascular: Heart regular rate and rhythm Chest: Able to complete full sentences, no retractions, no tachypnea Abdomen: abdomen soft, non-tender, non-distended, no organomegaly Musculoskeletal: Pulses present and equal in all extremities, no peripheral edema Motor: no focal deficits noted Neurological: CN II-XII grossly intact, no focal motor or sensory deficits noted Skin: Intact with no visualized rashes Psych: Normal affect and mood ED course: 71 yo well-appearing female presents to the emergency department instructed by dialysis center for further care. Vital signs upon arrival are within acceptable limits. Patient is well-appearing at bedside stat showing any signs of distress. EKG interpretation: Ventricular rate, sinus bradycardia,. Interval 179, QS 110, QTc 402. No AK prolongation, no QTC prolongation, no ST or T-wave changes noted. Overall, this EKG is unremarkable Habits evaluation obtained per it CBC unremarkable. Metabolic panel shows potassium 6.3. Elevated renal markers which is around her usual. Urinalysis was ordered by triage found to be negative. Covered test is negative. Patient observed in emergency department for approximately 5 hours patient is reevaluated bedside at 5:40 PM. Patient stable medical condition. Case discussed with Dr. Monroy who will arrange for dialysis for the patient tonight. Patient given hyperkalemia cocktail. Patient be admitted to [facility] hospitalist group. - Related Data Home Medications Medication Instructions Recorded Confirmed Aspirin 81 mg PO DAILY 12/14/14 06/25/21 Sevelamer [Renvela] 800 mg PO TID-W/MEALS 12/13/17 06/25/21 Omeprazole 40 mg PO DAILY 11/27/18 06/25/21 Furosemide [Lasix] 20 mg PO HS 11/15/19 06/25/21 Metoprolol Tartrate [Lopressor] 50 mg PO HS 11/15/19 06/25/21 ALPRAZolam [Xanax] 0.25 mg PO HS PRN 11/27/19 06/25/21 Acetaminophen [Tylenol 8 Hour] 650 mg PO DAILY PRN 06/25/21 06/25/21 DULoxetine HCL [Cymbalta] 60 mg PO DAILY 06/25/21 06/25/21 Lidocaine-Prilocaine Cream [Emla 1 applic TOPICAL DAILY PRN 06/25/21 06/25/21 Cream 2.5%/2.5%] Nephro-Callie 0.8mg 0.8 mg PO DAILY 06/25/21 06/25/21 Allergies Allergy/AdvReac Type Severity Reaction Status Date / Time amoxicillin trihydrate Allergy Anaphylaxis Verified 01/06/22 12:35 [From Augmentin] iodine Allergy Anaphylaxis Verified 01/06/22 12:35 menthol Allergy Unknown Verified 01/06/22 12:35 potassium clavulanate Allergy Anaphylaxis Verified 01/06/22 12:35 [From Augmentin] sulfasalazine Allergy Unknown Verified 01/06/22 12:35 [From Azulfidine] Review of Systems ROS Statement: Those systems with pertinent positive or pertinent negative responses have been documented in the HPI. ROS Other: All systems not noted in ROS Statement are negative. Past Medical History Past Medical History: Cancer, Dialysis, GERD/Reflux, GI Bleed, Hearing Disorder / Deafness, Hypertension, Osteoarthritis (OA), Renal Disease Additional Past Medical History / Comment(s): hemodialysis T//, mineral bone disease, mild heart enlargement, skin cancer removed from nose, lower GI bleed years ago, UTI, [place] bilaterally with hearing aides, colon cancer, blood on occult stool test, dialysis History of Any Multi-Drug Resistant Organisms: None Reported Past Surgical History: Appendectomy, Bowel Resection, Joint Replacement, Tonsil lectomy Additional Past Surgical History / Comment(s): left arm fistula, colonoscopy, skin cancer removed from nose, total right knee arthroplasty, luis alberto cataracts Past Anesthesia/Blood Transfusion Reactions: Previous Problems w/ Anesthesia Additional Past Anesthesia/Blood Transfusion Reaction / Comment(s): Difficulty waking Past Psychological History: No Psychological Hx Reported Smoking Status: Former smoker Past Alcohol Use History: None Reported Past Drug Use History: None Reported - Past Family History Mother Family Medical History: COPD Additional Family Medical History / Comment(s): Heart issues Father Family Medical History: Cancer Additional Family Medical History / Comment(s): Unknown CA General Exam Limitations: no limitations Course Vital Signs 01/06/22 01/06/22 12:25 16:34 Temperature 97.7 F Pulse Rate 57 L 52 L Respiratory 18 18 Rate Blood Pressure 155/67 169/68 O2 Sat by Pulse 96 99 Oximetry Medical Decision Making - Lab Data Result diagrams: 01/06/22 15:40 01/06/22 16:40 Lab Results 01/06/22 01/06/22 01/06/22 Range/Units 12:44 15:40 15:40 WBC 6.3 (3.8-10.6) k/uL RBC 3.89 (3.80-5.40) m/uL Hgb 12.2 (11.4-16.0) gm/dL Hct 39.0 (34.0-46.0) % MCV 100.2 H (80.0-100.0) fL MCH 31.3 (25.0-35.0) pg MCHC 31.2 (31.0-37.0) g/dL RDW 14.1 (11.5-15.5) % Plt Count 152 (150-450) k/uL MPV 8.1 Neutrophils % 66 % Lymphocytes % 25 % Monocytes % 3 % Eosinophils % 3 % Basophils % 0 % Neutrophils # 4.2 (1.3-7.7) k/uL Lymphocytes # 1.6 (1.0-4.8) k/uL Monocytes # 0.2 (0-1.0) k/uL Eosinophils # 0.2 (0-0.7) k/uL Basophils # 0.0 (0-0.2) k/uL Macrocytosis Slight Sodium (137-145) mmol/L Potassium (3.5-5.1) mmol/L Chloride (98-107) mmol/L Carbon Dioxide (22-30) mmol/L Anion Gap mmol/L BUN (7-17) mg/dL Creatinine (0.52-1.04) mg/dL Est GFR (CKD-EPI)AfAm (>60 ml/min/1.73 sqM) Est GFR (CKD-EPI)NonAf (>60 ml/min/1.73 sqM) Glucose (74-99) mg/dL Calcium (8.4-10.2) mg/dL Urine Color Light Yellow Urine Appearance Clear (Clear) Urine pH 7.0 (5.0-8.0) Ur Specific [place] 1.008 (1.001-1.035) Urine Protein 1+ H (Negative) Urine Glucose (UA) Negative (Negative) Urine Ketones Negative (Negative) Urine Blood Negative (Negative) Urine Nitrite Negative (Negative) Urine Bilirubin Negative (Negative) Urine Urobilinogen <2.0 (<2.0) mg/dL Ur Leukocyte Esterase Negative (Negative) Urine RBC <1 (0-5) /hpf Urine WBC 1 (0-5) /hpf Ur Squamous Epith Cells 5 H (0-4) /hpf Urine Bacteria Rare H (None) /hpf Urine Mucus Rare H (None) /hpf Coronavirus (PCR) Detected A (Not Detectd) 01/06/22 Range/Units 16:40 WBC (3.8-10.6) k/uL RBC (3.80-5.40) m/uL Hgb (11.4-16.0) gm/dL Hct (34.0-46.0) % MCV (80.0-100.0) fL MCH (25.0-35.0) pg MCHC (31.0-37.0) g/dL RDW (11.5-15.5) % Plt Count (150-450) k/uL MPV Neutrophils % % Lymphocytes % % Monocytes % % Eosinophils % % Basophils % % Neutrophils # (1.3-7.7) k/uL Lymphocytes # (1.0-4.8) k/uL Monocytes # (0-1.0) k/uL Eosinophils # (0-0.7) k/uL Basophils # (0-0.2) k/uL Macrocytosis Sodium 137 (137-145) mmol/L Potassium 6.3 H* (3.5-5.1) mmol/L Chloride 106 (98-107) mmol/L Carbon Dioxide 23 (22-30) mmol/L Anion Gap 8 mmol/L BUN 38 H (7-17) mg/dL Creatinine 5.47 H (0.52-1.04) mg/dL Est GFR (CKD-EPI)AfAm 8 (>60 ml/min/1.73 sqM) Est GFR (CKD-EPI)NonAf 7 (>60 ml/min/1.73 sqM) Glucose 86 (74-99) mg/dL Calcium 9.7 (8.4-10.2) mg/dL Urine Color Urine Appearance (Clear) Urine pH (5.0-8.0) Ur Specific [place] (1.001-1.035) Urine Protein (Negative) Urine Glucose (UA) (Negative) Urine Ketones (Negative) Urine Blood (Negative) Urine Nitrite (Negative) Urine Bilirubin (Negative) Urine Urobilinogen (<2.0) mg/dL Ur Leukocyte Esterase (Negative) Urine RBC (0-5) /hpf Urine WBC (0-5) /hpf Ur Squamous Epith Cells (0-4) /hpf Urine Bacteria (None) /hpf Urine Mucus (None) /hpf Coronavirus (PCR) (Not Detectd) Disposition Clinical Impression: Hyperkalemia, COVID-19 Disposition: ADMITTED IP TO THIS [facility] Condition: Fair Referrals: None,Stated [Primary Care Provider] - 1-2 days Decision Time: 17:39
[2022-01-06 16:26] LABS: Basophils % (A) 0 %; Eosinophils # (A) 0.2 k/uL (0-0.7); Eosinophils % (A) 3 %; HGB 12.2 gm/dL (11.4-16.0); Lymphocytes # (A) 1.6 k/uL (1.0-4.8); Lymphocytes % (A) 25 %; MCH 31.3 pg (25.0-35.0); MCHC 31.2 g/dL (31.0-37.0); MCV 100.2 fL (80.0-100.0); Macrocytosis Slight; Mean Platelet Volume 8.1; Monocytes # (A) 0.2 k/uL (0-1.0); Monocytes % (A) 3 %; Neutrophils # (A) 4.2 k/uL (1.3-7.7); Neutrophils % (A) 66 %; Platelet Count 152 k/uL (150-450); RBC 3.89 m/uL (3.80-5.40); RDW 14.1 % (11.5-15.5); WBC 6.3 k/uL (3.8-10.6)
[2022-01-06 17:08] LABS: Calcium 9.7 mg/dL (8.4-10.2)
[2022-01-06 17:12] LABS: Potassium 6.3 mmol/L (3.5-5.1)
[2022-01-06] MEDS ORDERED: ALBUTEROL NEB (CONC) 2.5 MG/0.5 ML INHALATION ONE (17:29)
[2022-01-06] MEDS ORDERED: INSULIN REGULAR 100 UNIT/ML VIAL (IV) IV ONE (17:29)
[2022-01-06] MEDS ORDERED: SODIUM BICARB 8.4% 50 ML SYR (1 MEQ/ML) IV ONE (17:29)
[2022-01-06] MEDS ORDERED: DEXTROSE 50% SYRINGE 50 ML IVP ONE (17:29)
[2022-01-06] MEDS ORDERED: NALOXONE 0.4 MG/ML 1 ML VIAL IV PRN (17:36)
[2022-01-06] MEDS ORDERED: CALCIUM GLUCONATE IN NACL 1 GM in SALINE 1 100ML.BAG IVPB ONE (18:00)
[2022-01-06] MEDS ORDERED: SODIUM ZIRCONIUM CYCLOSILICATE 10 GM PACKET PO ONE (18:00)
[2022-01-06 18:17] LABS: Glucose,Whole Blood 78 mg/dL (70-110)
[2022-01-06] MEDS: SODIUM CHLORIDE 0.9% 1,000 ML IV SCH (18:27)
[2022-01-06] MEDS ORDERED: LIDOCAINE-PRILOCAINE 2.5-2.5% CREAM 5 GM TUBE TOPICAL PRN (19:00)
[2022-01-06] MEDS ORDERED: ALPRAZolam 0.5 MG TAB PO PRN (19:00)
[2022-01-07] MEDS: METOPROLOL TARTRATE 25 MG TAB PO SCH ×3 (02:00→20:33)
[2022-01-07] MEDS: SEVELAMER 800 MG TAB PO SCH ×4 (06:32→20:43)
[2022-01-07] MEDS: DULoxetine HCL 60 MG CAPSULE.DR PO SCH (08:51)
[2022-01-07] MEDS: PANTOPRAZOLE 40 MG TABLET PO SCH (08:51)
[2022-01-07] MEDS: CHOLECALCIFEROL 25 MCG (1000 IU) TABLET PO SCH (08:51)
[2022-01-07] MEDS: ASPIRIN 81 MG PO SCH (08:51)
[2022-01-07] MEDS: ZINC SULFATE 220 MG CAP PO SCH (08:51)
--- NOTE | 2022-01-07 11:02 | P.NPCON ---
History of Present Illness - Reason for Consult end stage renal disease - History of Present Illness Reason for consultation: End-stage renal disease History of present illness: Patient is a 71-year-old female seen in renal consultation for end-stage renal disease. She is maintained on hemodialysis on Tuesday schedule. Left upper extremity fistula. Patient missed Tuesday's hemodialysis treatment due to not feeling well and diarrhea. Patient also states she could not make it to dialysis unit as public transportation would not take her due to being positive for Covid 19. Denies any diarrhea today. Patient states she did have breakfast and feels fine. No abdominal pain. No vomiting. No chest pain or shortness of breath. Blood pressure stable. Patient has been afebrile this admission. She is currently on room air. Potassium was high at 6.3 on admission and she underwent hemodialysis last night. Repeat potassium level was 4.1. She scheduled to undergo hemodialysis today. Vital signs are stable. General: Awake. No acute distress. HEENT: Head exam is unremarkable. LUNGS: Breath sounds decreased. HEART: Rate and Rhythm are regular. ABDOMEN: Soft, nontender. Obese. EXTREMITITES: No edema. Past Medical History Past Medical History: Cancer, Dialysis, GERD/Reflux, GI Bleed, Hearing Disorder / Deafness, Hypertension, Osteoarthritis (OA), Renal Disease Additional Past Medical History / Comment(s): hemodialysis /, mineral bone disease, mild heart enlargement, skin cancer removed from nose, lower GI bleed years ago, UTI, [place] bilaterally with hearing aides, colon cancer, blood on occult stool test, dialysis History of Any Multi-Drug Resistant Organisms: None Reported Past Surgical History: Appendectomy, Bowel Resection, Joint Replacement, Tonsillectomy Additional Past Surgical History / Comment(s): left arm fistula, colonoscopy, skin cancer removed from nose, total right knee arthroplasty, luis alberto cataracts Past Anesthesia/Blood Transfusion Reactions: Previous Problems w/ Anesthesia Additional Past Anesthesia/Blood Transfusion Reaction / Comment(s): Difficulty waking Past Psychological History: No Psychological Hx Reported Additional Psychological History / Comment(s): . Smoking Status: Never smoker Past Alcohol Use History: None Reported Additional Past Alcohol Use History / Comment(s): Pt smoked briefly age 19 to 20 then quit. smoked 3 cig per week Past Drug Use History: None Reported - Past Family History Mother Family Medical History: COPD Additional Family Medical History / Comment(s): Heart issues Father Family Medical History: Cancer Additional Family Medical History / Comment(s): Unknown CA Medications and Allergies Home Medications Medication Instructions Recorded Confirmed Type Aspirin 81 mg PO DAILY 12/14/14 01/06/22 History Sevelamer [Renvela] 3,200 mg PO TID-W/MEALS 12/13/17 01/06/22 History Omeprazole 40 mg PO DAILY 11/27/18 01/06/22 History Furosemide [Lasix] 60 mg PO HS 11/15/19 01/06/22 History Metoprolol Tartrate [Lopressor] 25 mg PO BID 11/15/19 01/06/22 History Acetaminophen [Tylenol 8 Hour] 650 mg PO DAILY PRN 06/25/21 01/06/22 History DULoxetine HCL [Cymbalta] 60 mg PO DAILY 06/25/21 01/06/22 History Lidocaine-Prilocaine Cream [Emla 1 applic TOPICAL DAILY PRN 06/25/21 01/06/22 History Cream 2.5%/2.5%] Nephro-Callie 0.8mg 0.8 mg PO DAILY 06/25/21 01/06/22 History ALPRAZolam [Xanax] 0.5 mg PO BID PRN 01/06/22 01/06/22 History Allergies Allergy/AdvReac Type Severity Reaction Status Date / Time amoxicillin trihydrate Allergy Anaphylaxis Verified 01/06/22 18:02 [From Augmentin] iodine Allergy Anaphylaxis Verified 01/06/22 18:02 menthol Allergy Unknown Verified 01/06/22 18:02 potassium clavulanate Allergy Anaphylaxis Verified 01/06/22 18:02 [From Augmentin] sulfasalazine Allergy Unknown Verified 01/06/22 18:02 [From Azulfidine] Physical Exam Vitals: Vital Signs Temp Pulse Pulse Resp BP BP Pulse Ox 01/07/22 08:46 98.2 F 77 18 129/58 94 L 01/07/22 04:00 98.1 F 68 18 133/75 98 01/07/22 00:28 68 15 149/70 97 01/06/22 18:40 74 01/06/22 18:39 65 100 01/06/22 18:23 53 L 01/06/22 16:34 52 L 18 169/68 99 01/06/22 12:25 97.7 F 57 L 18 155/67 96 Intake and Output 01/06/22 01/07/22 01/07/22 22:59 06:59 14:59 Other: Weight 99.382 kg 98.203 kg Results - Lab Results Most recent lab results Calcium 9.7 mg/dL (8.4-10.2) 01/06/22 16:40 01/06/22 15:40 01/06/22 19:38 Assessment and Plan Plan: Assessment: 1. End-stage renal disease maintained on hemodialysis on Tuesday schedule via left upper extremity AV fistula. 2. Hyperkalemia secondary to chronic kidney disease and missed dialysis. Improved postdialysis. 3. COVID-19 infection. 4. Chronic kidney disease mineral bone disease maintained on Renvela. Plan: Hemodialysis today. Thank you for the consultation. I will continue to follow the patient with you during her hospital stay.
[2022-01-07] MEDS: FOLIC ACID-VIT B COMPLEX-VIT C 1 CAP PO SCH (12:29)
[2022-01-07] MEDS: SODIUM CHLORIDE 0.9% 1,000 ML IV SCH (18:56)
[2022-01-07] MEDS ORDERED: FUROSEMIDE 20 MG TAB PO SCH (21:00)
--- NOTE | 2022-01-07 23:51 | P.HPIM ---
History of Present Illness H&P Date: 01/07/22 Chief Complaint: Diarrhea and weakness Patient is a 71-year-old female with a known history of ESRD on hemodialysis TTS, hearing disorder/deafness, hypertension, history of colon cancer status post bowel resection presented to ER due to missing her hemodialysis. Patient was tested positive for COVID-19 infection about a week ago. She was having cold-like symptoms and diarrhea which is improving now. No complaints of fever or chills. She has been having generalized weakness. Pulse ox 96% on room air on admission heart rate 57. Denies any headache or dizziness or lightheadedness. EKG showed sinus bradycardia with sinus arrhythmia. Laboratory data showed WBC 6.3 hemoglobin 12.2 and platelets 152 Sodium 137 potassium 6.3 and chloride 106 BUN 38 and creatinine 5.47 and calcium 9.7 urinalysis is negative for infection COVID-19 PCR detected. Hyperkalemia secondary to CKD admission to hemodialysis. ESRD on hemodialysis COVID-19 infection and was tested positive about 1 week ago. Nonhypoxic. Hearing disorder/deafness Hypertension Osteoarthritis History of colon cancer status postresection Morbid obesity BMI 42.3 DVT prophylaxis with Lovenox subcu. Plan: Patient was admitted to hospital due to missed hemodialysis, generalized weakness and was tested positive for COVID-19 infection about a week ago. Patient is status post hemodialysis with improvement in hyperkalemia. Continue supportive care and multivitamins and current with home medications. Nephrology on board. Follow-up closely. Past Medical History Past Medical History: Cancer, Dialysis, GERD/Reflux, GI Bleed, Hearing Disorder / Deafness, Hypertension, Osteoarthritis (OA), Renal Disease Additional Past Medical History / Comment(s): hemodialysis T//, mineral bone disease, mild heart enlargement, skin cancer removed from nose, lower GI bleed years ago, UTI, [place] bilaterally with hearing aides, colon cancer, blood on occult stool test, dialysis History of Any Multi-Drug Resistant Organisms: None Reported Past Surgical History: Appendectomy, Bowel Resection, Joint Replacement, Tonsillectomy Additional Past Surgical History / Comment(s): left arm fistula, colonoscopy, skin cancer removed from nose, total right knee arthroplasty, luis alberto cataracts Past Anesthesia/Blood Transfusion Reactions: Previous Problems w/ Anesthesia Additional Past Anesthesia/Blood Transfusion Reaction / Comment(s): Difficulty waking Past Psychological History: No Psychological Hx Reported Additional Psychological History / Comment(s): . Smoking Status: Never smoker Past Alcohol Use History: None Reported Additional Past Alcohol Use History / Comment(s): Pt smoked briefly age 19 to 20 then quit. smoked 3 cig per week Past Drug Use History: None Reported - Past Family History Mother Family Medical History: COPD Additional Family Medical History / Comment(s): Heart issues Father Family Medical History: Cancer Additional Family Medical History / Comment(s): Unknown CA Medications and Allergies Home Medications Medication Instructions Recorded Confirmed Type Aspirin 81 mg PO DAILY 12/14/14 01/06/22 History Sevelamer [Renvela] 3,200 mg PO TID-W/MEALS 12/13/17 01/06/22 History Omeprazole 40 mg PO DAILY 11/27/18 01/06/22 History Furosemide [Lasix] 60 mg PO HS 11/15/19 01/06/22 History Metoprolol Tartrate [Lopressor] 25 mg PO BID 11/15/19 01/06/22 History Acetaminophen [Tylenol 8 Hour] 650 mg PO DAILY PRN 06/25/21 01/06/22 History DULoxetine HCL [Cymbalta] 60 mg PO DAILY 06/25/21 01/06/22 History Lidocaine-Prilocaine Cream [Emla 1 applic TOPICAL DAILY PRN 06/25/21 01/06/22 History Cream 2.5%/2.5%] Nephro-Callie 0.8mg 0.8 mg PO DAILY 06/25/21 01/06/22 History ALPRAZolam [Xanax] 0.5 mg PO BID PRN 01/06/22 01/06/22 History Allergies Allergy/AdvReac Type Severity Reaction Status Date / Time amoxicillin trihydrate Allergy Anaphylaxis Verified 01/06/22 18:02 [From Augmentin] iodine Allergy Anaphylaxis Verified 01/06/22 18:02 menthol Allergy Unknown Verified 01/06/22 18:02 potassium clavulanate Allergy Anaphylaxis Verified 01/06/22 18:02 [From Augmentin] sulfasalazine Allergy Unknown Verified 01/06/22 18:02 [From Azulfidine] Physical Exam Vitals: Vital Signs Temp Pulse Pulse Resp BP BP Pulse Ox 01/07/22 08:46 98.2 F 77 18 129/58 94 L 01/07/22 04:00 98.1 F 68 18 133/75 98 09/29/22 00:28 68 15 149/70 97 01/06/22 18:40 74 01/06/22 18:39 65 100 01/06/22 18:23 53 L 01/06/22 16:34 52 L 18 169/68 99 01/06/22 12:25 97.7 F 57 L 18 155/67 96 Intake and Output 01/06/22 01/07/22 01/07/22 22:59 06:59 14:59 Other: Weight 99.382 kg 98.203 kg Results CBC & Chem 7: 01/06/22 15:40 01/06/22 19:38 Labs: Abnormal Lab Results - Last 24 Hours (Table) 01/06/22 01/06/22 01/06/22 Range/Units 12:44 15:40 15:40 MCV 100.2 H (80.0-100.0) fL Potassium (3.5-5.1) mmol/L BUN (7-17) mg/dL Creatinine (0.52-1.04) mg/dL Urine Protein 1+ H (Negative) Ur Squamous Epith Cells 5 H (0-4) /hpf Urine Bacteria Rare H (None) /hpf Urine Mucus Rare H (None) /hpf Coronavirus (PCR) Detected A (Not Detectd) 01/06/22 Range/Units 16:40 MCV (80.0-100.0) fL Potassium 6.3 H* (3.5-5.1) mmol/L BUN 38 H (7-17) mg/dL Creatinine 5.47 H (0.52-1.04) mg/dL Urine Protein (Negative) Ur Squamous Epith Cells (0-4) /hpf Urine Bacteria (None) /hpf Urine Mucus (None) /hpf Coronavirus (PCR) (Not Detectd) Thrombosis Risk Factor Assmnt - Choose All That Apply Each Factor Represents 1 point: Obesity (BMI >25), Swollen legs (current) Other Risk Factors: Yes Each Risk Factor Represents 2 Points: Age 61-74 years Other congenital or acquired thrombophilia - If yes, enter type in comment: No Thrombosis Risk Factor Assessment Total Risk Factor Score: 4 Thrombosis Risk Factor Assessment Level: Moderate Risk
[2022-01-08] MEDS: SEVELAMER 800 MG TAB PO SCH ×3 (06:33→16:53)
[2022-01-08] MEDS: PANTOPRAZOLE 40 MG TABLET PO SCH (08:36)
[2022-01-08] MEDS: CHOLECALCIFEROL 25 MCG (1000 IU) TABLET PO SCH (08:36)
[2022-01-08] MEDS: FOLIC ACID-VIT B COMPLEX-VIT C 1 CAP PO SCH (08:37)
[2022-01-08] MEDS: ASPIRIN 81 MG PO SCH (08:37)
[2022-01-08] MEDS: DULoxetine HCL 60 MG CAPSULE.DR PO SCH (08:37)
[2022-01-08] MEDS: ZINC SULFATE 220 MG CAP PO SCH (08:37)
[2022-01-08] MEDS: METOPROLOL TARTRATE 25 MG TAB PO SCH (08:37)
--- NOTE | 2022-01-08 08:46 | XR ---
EXAMINATION TYPE: XR chest 1V DATE OF EXAM: 01/08/2022 COMPARISON: Chest x-ray 06/25/2021 HISTORY: Covid infection TECHNIQUE: Single frontal view of the chest is obtained. FINDINGS: There is no focal air space opacity, pleural effusion, or pneumothorax seen. The cardiac silhouette size is within normal limits. The osseous structures are intact. There are overlying lucy ds. Right hemidiaphragm remains elevated. The aorta is dense. IMPRESSION: No acute process.
[2022-01-08] MEDS ORDERED: ENOXAPARIN 40 MG/0.4 ML SYRINGE SQ SCH (09:00)
[2022-01-08 09:32] LABS: Basophils % (A) 0 %; Eosinophils # (A) 0.2 k/uL (0-0.7); Eosinophils % (A) 3 %; HCT 37.5 % (34.0-46.0); HGB 12.1 gm/dL (11.4-16.0); Hypochromasia Slight; Lymphocytes # (A) 1.6 k/uL (1.0-4.8); Lymphocytes % (A) 27 %; MCH 32.3 pg (25.0-35.0); MCHC 32.2 g/dL (31.0-37.0); MCV 100.3 fL (80.0-100.0); Mean Platelet Volume 7.5; Monocytes # (A) 0.2 k/uL (0-1.0); Monocytes % (A) 4 %; Neutrophils # (A) 3.9 k/uL (1.3-7.7); Neutrophils % (A) 65 %; Platelet Count 113 k/uL (150-450); RBC 3.74 m/uL (3.80-5.40); RDW 13.7 % (11.5-15.5)
[2022-01-08 09:48] LABS: Calcium 9.7 mg/dL (8.4-10.2); Potassium 4.5 mmol/L (3.5-5.1)
--- NOTE | 2022-01-08 10:06 | P.PN ---
Subjective Patient is seen in follow-up for end-stage renal disease. She is maintained on hemodialysis on Tuesday schedule. Completed dialysis with 3 L ultrafiltration yesterday. Blood pressure stable. No chest pain or shortness of breath. Vital signs are stable. General: Awake. No acute distress. HEENT: Head exam is unremarkable. LUNGS: Breath sounds decreased. HEART: Rate and Rhythm are regular. ABDOMEN: Soft, obese. EXTREMITITES: No edema. Objective - Vital Signs Vital signs: Vital Signs Temp 98.4 F 01/08/22 08:35 Pulse 64 01/08/22 08:35 Resp 16 01/08/22 08:35 BP 101/55 01/08/22 08:35 Pulse Ox 97 01/08/22 08:35 FiO2 Intake & Output 01/07/22 01/08/22 01/08/22 18:59 06:59 18:59 Intake Total 300 Output Total 3000 Balance -2700 Weight 100.5 kg Intake: Hemodialysis 300 Output: Hemodialysis 3000 Other: # Voids 2 2 - Labs CBC & Chem 7: 01/08/22 08:56 01/08/22 08:56 Labs: Abnormal Lab Results - Last 24 Hours (Table) 01/08/22 01/08/22 Range/Units 08:56 08:56 RBC 3.74 L (3.80-5.40) m/uL MCV 100.3 H (80.0-100.0) fL Plt Count 113 L (150-450) k/uL Sodium 135 L (137-145) mmol/L Carbon Dioxide 21 L (22-30) mmol/L BUN 37 H (7-17) mg/dL Creatinine 5.48 H (0.52-1.04) mg/dL Glucose 165 H (74-99) mg/dL Assessment and Plan Plan: Assessment: 1. End-stage renal disease maintained on hemodialysis on Tuesday schedule via left upper extremity AV fistula. 2. Hyperkalemia secondary to chronic kidney disease and missed dialysis. Improved postdialysis. 3. COVID-19 infection. 4. Chronic kidney disease mineral bone disease maintained on Renvela. Plan: Hemodialysis today - she will be maintained on Tuesday schedule temporarily due to Covid infection. Possible discharge after dialysis today.
[2022-01-08 16:52] VITALS: BP 137/76; PULSE 79; TEMP 98.3
[2022-01-08 17:55] VITALS: RESP 18
[2022-01-09] MEDS ORDERED: ENOXAPARIN 30 MG/0.3 ML SYRINGE SQ SCH (09:00)
== END 2022-01-08 18:24 | disposition home or self-care (01) | DRG 640 ==
LOC: EC 11:44 → 3SCARD 17:38
PROVIDERS: ADMIT Hospitalist; ATTEND Hospitalist
PROC: 5A1D70Z Performance of Urinary Filtration, Intermittent, Less than 6 Hours Per Day (ICD-10-PCS; principal; 2022-01-07)
DX: E87.5 Hyperkalemia (principal); N18.6 End stage renal disease; U07.1 COVID-19; I12.0 Hypertensive chronic kidney disease with stage 5 chronic kidney disease or end stage renal disease; Z68.41 Body mass index [BMI] 40.0-44.9, adult; E66.01 Morbid (severe) obesity due to excess calories; Z91.15 Patient's noncompliance with renal dialysis; Z99.2 Dependence on renal dialysis; J00 Acute nasopharyngitis [common cold]; R00.1 Bradycardia, unspecified; E88.9 Metabolic disorder, unspecified; I10 Essential (primary) hypertension; E83.9 Disorder of mineral metabolism, unspecified; H91.90 Unspecified hearing loss, unspecified ear; K21.9 Gastro-esophageal reflux disease without esophagitis; M19.90 Unspecified osteoarthritis, unspecified site; H91.93 Unspecified hearing loss, bilateral; Z88.1 Allergy status to other antibiotic agents; Z88.2 Allergy status to sulfonamides; Z88.8 Allergy status to other drugs, medicaments and biological substances; Z79.82 Long term (current) use of aspirin; Z79.899 Other long term (current) drug therapy; Z85.038 Personal history of other malignant neoplasm of large intestine; Z85.828 Personal history of other malignant neoplasm of skin; Z87.440 Personal history of urinary (tract) infections; Z87.19 Personal history of other diseases of the digestive system; Z87.891 Personal history of nicotine dependence; Z82.5 Family history of asthma and other chronic lower respiratory diseases; Z80.9 Family history of malignant neoplasm, unspecified; Z90.49 Acquired absence of other specified parts of digestive tract; Z96.651 Presence of right artificial knee joint; Z91.041 Radiographic dye allergy status; Z98.42 Cataract extraction status, left eye; Z98.41 Cataract extraction status, right eye
CPT/HCPCS: 36415; 71045; 80048; 81001; 84132; 85025; 87635; 90935; 93005; 96374; 96375; 99285

== ENCOUNTER 2022-01-21 23:35 | Emergency (ER) | payer MEDICARE, OTHER | END 2022-01-22 01:50 | disposition home or self-care (01) | LOC: EC 23:35 | DX: D69.9 Hemorrhagic condition, unspecified (principal); N18.6 End stage renal disease; Z99.2 Dependence on renal dialysis | CPT/HCPCS: 99283 ==

== ENCOUNTER → 2022-09-03 | Outpatient (CLI) | payer MEDICARE, OTHER ==
--- NOTE | 2022-09-03 09:32 | NM ---
EXAMINATION TYPE: NM hepatobiliary w CCK DATE OF EXAM: 09/03/2022 COMPARISON: Gallbladder ultrasound November 14 2179 CLINICAL INDICATION: Female, 71 years old with history of R10.11; epigastric pain and diminished appe tite. TECHNIQUE: After the intravenous administration of 4.5 mCi Tc 99m Mebrofenin hepatobiliary scintigrap hy is performed. Immediate images post injection. FINDINGS: There is satisfactory initial accumulation of tracer by the liver. The gallbladder is visualized wit hin 15 minutes. The small bowel activity is noted within 20 minutes. At one hour CCK was administer ed, patient was injected with 2 mcg of Kinevac, and gallbladder ejection fraction is calculated at 87 %, not diminished from the normal range. Therefore there is no scintigraphic evidence of cystic or common bile duct obstruction to suggest acute cholecystitis or gallbladder hypokinesia. IMPRESSION: The ejection fraction is 87%, some consider this abnormal or a hyperkinetic response.
== END | disposition home or self-care (01) ==
LOC: RADNMMAIN 06:55
PROVIDERS: ATTEND Surgery
DX: R10.11 Right upper quadrant pain (principal); R10.13 Epigastric pain
CPT/HCPCS: 78227; A9537; J2805

== ENCOUNTER → 2022-09-27 | Outpatient (CLI) | payer MEDICARE, OTHER ==
--- NOTE | 2022-09-27 08:56 | US ---
EXAMINATION TYPE: US gallbladder DATE OF EXAM: 09/27/2022 COMPARISON: RI 08-31 CLINICAL INDICATION: Female, 71 years old with history of R10.11 RT UPPER QUAD PAIN; large belly, balderas ited visualization TECHNIQUE: Multiple sonographic images of the right upper quadrant are obtained. 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 Hepatic steatosis. 2. Atrophic right kidney.
== END | disposition home or self-care (01) ==
LOC: RADUSWWP 08:14
PROVIDERS: ATTEND Surgery
DX: K76.0 Fatty (change of) liver, not elsewhere classified (principal); N26.1 Atrophy of kidney (terminal); R10.11 Right upper quadrant pain
CPT/HCPCS: 76705

== ENCOUNTER 2022-10-15 05:48 | Day surgery (SDC) | payer MEDICARE, OTHER ==
[~2022-10-15 05:48] MED LIST changes: +ACETAMINOPHEN TAB 500 MG TAB PO PRN; +HEPARIN SODIUM,PORCINE/PF 5,000 UNIT/0.5 ML SYRINGE SQ PRN; -LACTATED RINGERS 1,000 ML IV SCH
[2022-10-15] MEDS ORDERED: DEXAMETHASONE SOD PHOSPHATE 4 MG/ML 1 ML VIAL IV ONE (06:11)
[2022-10-15] MEDS ORDERED: ONDANSETRON 4 MG/2 ML VIAL IVP ONE (06:11)
[2022-10-15] MEDS: LACTATED RINGERS 1,000 ML IV SCH ×2 (06:35→06:40)
[2022-10-15 06:56] LABS: Basophils % (A) 0 %; Eosinophils # (A) 0.2 k/uL (0-0.7); Eosinophils % (A) 3 %; HCT 36.9 % (34.0-46.0); Hypochromasia Slight; Lymphocytes # (A) 1.5 k/uL (1.0-4.8); Lymphocytes % (A) 24 %; MCHC 32.4 g/dL (31.0-37.0); MCV 101.8 fL (80.0-100.0); Macrocytosis Slight; Mean Platelet Volume 7.3; Monocytes # (A) 0.3 k/uL (0-1.0); Monocytes % (A) 4 %; Neutrophils # (A) 4.2 k/uL (1.3-7.7); Neutrophils % (A) 67 %; Platelet Count 139 k/uL (150-450); RBC 3.63 m/uL (3.80-5.40); RDW 14.6 % (11.5-15.5); WBC 6.2 k/uL (3.8-10.6)
[2022-10-15] MEDS ORDERED: HYDROmorphone 0.5 MG/0.5 ML SYRINGE IVP PRN (07:00)
[2022-10-15] MEDS ORDERED: BUPIVACAINE (PF) 0.25% 30 ML VIAL SQ ONE (07:04)
[2022-10-15 07:12] LABS: African American GFR (CKD) 15 (>60 ml/min/1.73 sqM); Anion Gap 7 mmol/L; Blood Urea Nitrogen 17 mg/dL (7-17); Carbon Dioxide 30 mmol/L (22-30); Chloride 102 mmol/L (98-107); Glucose 137 mg/dL (74-99); Non-African American GFR(CKD) 13 (>60 ml/min/1.73 sqM); Sodium 139 mmol/L (137-145)
[2022-10-15] MEDS ORDERED: LIDOCAINE 2% INJ 20 MG/ML (2 ML VIAL) ONE (07:12)
[2022-10-15] MEDS ORDERED: ePHEDrine 50 MG/ML 1 ML VIAL ONE (07:12)
[2022-10-15] MEDS ORDERED: PHENYLEPHRINE-0.9% NACL SYG 1,000 MCG/10 ML SYRINGE ONE (07:12)
[2022-10-15] MEDS ORDERED: NEOSTIGMINE 1 MG/ML 10 ML VIAL ONE (07:12)
[2022-10-15] MEDS ORDERED: PROPOFOL 10 MG/ML 20 ML VIAL IV ONE (07:12)
[2022-10-15] MEDS ORDERED: ROCURONIUM 10 MG/ML (5 ML VIAL) IV ONE (07:12)
[2022-10-15] MEDS ORDERED: GLYCOPYRROLATE 0.2 MG/ML 2 ML VIAL ONE (07:12)
[2022-10-15] MEDS ORDERED: fentaNYL (PF) 50 MCG/ML 2 ML AMP ONE (07:12)
[2022-10-15 07:14] LABS: Potassium 4.3 mmol/L (3.5-5.1)
[2022-10-15 08:36] VITALS: TEMP 97
--- NOTE | 2022-10-15 08:36 | P.OP ---
Date of Procedure: 10/15/22 Preoperative Diagnosis: Cholecystitis Postoperative Diagnosis: Cholecystitis Adhesions Incisional hernia Procedure(s) Performed: Laparoscopic cholecystectomy Laparoscopic lysis of extensive adhesions Anesthesia: MOSES Surgeon: El Corley Estimated Blood Loss (ml): 5 Pathology: other (Gallbladder) Condition: stable Disposition: PACU Description of Procedure: The patient's placed on the operative table in the supine position. She received general endotracheal anesthesia. Her abdomen was prepped and draped in sterile fashion. Patient had a large midline scar and possible incisional hernia. Because this using a 5 mm optical trocar in the left upper quadrant the peritoneal cavity is entered. The abdomen was insufflated. After adequate insufflation the laparoscope was placed back the pleural cavity. There were adhesions noted located along her previous midline scar and there was also a large mouth incisional hernia. If another 5 mm trochars placed in the left lateral position. And then approximately 15 minutes operative time used to lyse extensive adhesions. After this is performed a 5 mm trochars placed in the supraumbilical position and another 5 mm trochars placed in the right lateral and right midabdomen position. Another 10 mL trochars placed in the epigastric position. Patient was reversed with number right side up. The gallbladder was grasped in the fundus and infundibulum. Traction on the gallbladder was placed in the lateral and the cephalad positions. The triangle of Calot was visualized.. The cystic duct was bluntly dissected until the union of the cystic duct and common bile duct was seen. A critical view of safety was achieved. The cystic duct was then divided and sealed with the Harmonic scissors. A PDS Endoloop was then placed throughout the cystic duct stump. The cystic artery divided and sealed with the Harmonic scissors. The gallbladder was then removed from the liver bed using Harmonic scissors. The gallbladder was then extracted through the epigastric port site. Operative fiel d was checked for any bleeding spots and Harmonic scissors was used to coagulate the liver bed. The abdomen was irrigated. The trocars were removed. The skin was closed using interrupted 3-0 Vicryl suture. Dermabond dressing were applied. The patient tolerated the procedure well.
[2022-10-15] MEDS ORDERED: SODIUM CHLORIDE 0.9% 1,000 ML IV ONE (09:06)
[2022-10-15] MEDS ORDERED: IV FLUID CONTINUATION 1,000 ML IV ONE ×2 (09:46)
[2022-10-15 10:10] VITALS: BP 114/74; RESP 18
[2022-10-15 10:11] VITALS: PULSE 77
== END 2022-10-15 10:40 | disposition home or self-care (01) ==
LOC: OR 05:48
PROVIDERS: ATTEND Surgery
DX: K81.1 Chronic cholecystitis (principal); K66.0 Peritoneal adhesions (postprocedural) (postinfection); K43.2 Incisional hernia without obstruction or gangrene; N27.0 Small kidney, unilateral; Z99.2 Dependence on renal dialysis; M19.90 Unspecified osteoarthritis, unspecified site; M10.9 Gout, unspecified; K21.9 Gastro-esophageal reflux disease without esophagitis; Z85.038 Personal history of other malignant neoplasm of large intestine; Z88.0 Allergy status to penicillin; Z88.2 Allergy status to sulfonamides; Z88.8 Allergy status to other drugs, medicaments and biological substances; Z79.82 Long term (current) use of aspirin; Z79.899 Other long term (current) drug therapy
CPT/HCPCS: 47562; 80048; 85025; J1100; J2710; J0690; J2405; J3010; J2370; J2704; J1644; J2001; 88304

== ENCOUNTER 2023-01-26 08:33 | Day surgery (SDC) | payer MEDICARE, OTHER ==
[2023-01-25 09:42] VITALS: BMI 46.5
[~2023-01-26 08:33] MED LIST changes: +LACTATED RINGERS 1,000 ML IV SCH; +ONDANSETRON 4 MG/2 ML VIAL IVP ONE; +fentaNYL (PF) 50 MCG/ML 2 ML AMP IV PRN
[2023-01-26 09:38] LABS: Glucose,Whole Blood 144 mg/dL (70-110)
[2023-01-26] MEDS ORDERED: SODIUM CHLORIDE 0.9% 1,000 ML IV ONE (09:47)
[2023-01-26] MEDS ORDERED: DEXAMETHASONE SOD PHOSPHATE 4 MG/ML 1 ML VIAL IVP ONE (09:50)
[2023-01-26] MEDS ORDERED: ROCURONIUM 10 MG/ML (5 ML VIAL) IV ONE (09:52)
[2023-01-26] MEDS ORDERED: PROPOFOL 10 MG/ML 20 ML VIAL IV ONE (09:52)
[2023-01-26] MEDS ORDERED: PHENYLEPHRINE-0.9% NACL SYG 1,000 MCG/10 ML SYRINGE ONE (09:52)
[2023-01-26] MEDS ORDERED: NEOSTIGMINE 1 MG/ML 10 ML VIAL ONE (09:52)
[2023-01-26] MEDS ORDERED: LIDOCAINE 1% INJ 10MG/ML (20 ML MDV) ONE (09:52)
[2023-01-26] MEDS ORDERED: fentaNYL (PF) 50 MCG/ML 2 ML AMP ONE (09:52)
[2023-01-26] MEDS ORDERED: MIDAZOLAM 2 MG/2 ML VIAL ONE (09:52)
[2023-01-26] MEDS ORDERED: GLYCOPYRROLATE 0.2 MG/ML 2 ML VIAL ONE (09:52)
[2023-01-26 10:03] LABS: African American GFR (CKD) 14 (>60 ml/min/1.73 sqM); Anion Gap 11 mmol/L; Blood Urea Nitrogen 33 mg/dL (7-17); Calcium 9.6 mg/dL (8.4-10.2); Carbon Dioxide 23 mmol/L (22-30); Chloride 102 mmol/L (98-107); Glucose 150 mg/dL (74-99); Non-African American GFR(CKD) 12 (>60 ml/min/1.73 sqM); Sodium 136 mmol/L (137-145)
[2023-01-26 10:11] LABS: Potassium 4.5 mmol/L (3.5-5.1)
[2023-01-26] MEDS ORDERED: LIDOCAINE 1%-EPI 1:100,000 50 ML VIAL SQ ONE (10:56)
--- NOTE | 2023-01-26 11:23 | P.OP ---
Date of Procedure: 01/26/23 Preoperative Diagnosis: Incisional hernia Postoperative Diagnosis: Incarcerated incisional hernia Procedure(s) Performed: Laparoscopic robotic system repair of incarcerated incisional hernia Anesthesia: MOSES Surgeon: El Corley Estimated Blood Loss (ml): 5 Pathology: none sent Condition: stable Disposition: PACU Operative Findings: 10 cm incisional hernia Description of Procedure: The patient was placed on the operating table in the supine position. He received general anesthesia. His abdomen was prepped and draped usual fashion. Using a 5 mm optical trocar under direct visualization the peritoneal cavity was entered in the left upper quadrant. The abdomen was then insufflated. The laparoscope was placed back into the perineal cavity. Next a 8 mm robotic trocar was placed in the right lower quadrant and a 12 mm robotic trocar was placed in the left lateral position. Another 8 mm trochars placed in the right upper quadrant.. The patient's placed in the left side up position. A four- quadrant transversus abdominis plane block was then performed using 1% local Xylocaine. And the patient was docked to the robot. The incisional hernia was visualized. Using hook cautery the peritoneum over the incisional hernia was excised. The fascial opening was repaired using 0V LOC suture. Next a piece of 11 cm round ventral light ST mesh was placed into the. Cavity and secured with 2 OV lock suture. The patient was undocked the robot. The needles were retrieved. The fascia of the 12 mm trocar site was closed with 0 Ethibond suture. Skin was closed interrupted 3-0 Monocryl suture. Dermabond dressings was applied. Patient tolerated procedure well and was sent to recovery room stable condition.
[2023-01-26 11:44] VITALS: TEMP 97.3
[2023-01-26] MEDS: HYDROmorphone 0.5 MG/0.5 ML SYRINGE IVP PRN ×3 (11:52→12:14)
[2023-01-26 13:06] VITALS: RESP 16
[2023-01-26 13:26] VITALS: PULSE 98
[2023-01-26 14:06] VITALS: BP 114/62
== END 2023-01-26 15:46 | disposition home or self-care (01) ==
LOC: OR 08:33
PROVIDERS: ATTEND Surgery
DX: K43.0 Incisional hernia with obstruction, without gangrene (principal); I10 Essential (primary) hypertension; K21.9 Gastro-esophageal reflux disease without esophagitis; Z90.49 Acquired absence of other specified parts of digestive tract; Z98.890 Other specified postprocedural states; Z88.2 Allergy status to sulfonamides; Z88.5 Allergy status to narcotic agent; Z79.899 Other long term (current) drug therapy
CPT/HCPCS: 80048; 49594; C1781; J2250; J1100; J2710; J0690; J2405; J2001; J3010; J2704; J1170; J1644; J2371

== ENCOUNTER 2023-09-22 14:02 | Emergency (ER) | payer MEDICARE, OTHER ==
--- NOTE | 2023-09-22 14:48 | ED ---
Abdominal Pain HPI - General Source: patient, RN notes reviewed Mode of arrival: EMS Limitations: no limitations - History of Present Illness MD Complaint: abdominal pain <Cinda Cisse - Last Filed: 09/22/23 16:45> <Amy Lloyd - Last Filed: 09/22/23 20:00> - General Chief Complaint: Abdominal Pain Stated Complaint: abd pain Time Seen by Provider: 09/22/23 14:11 - History of Present Illness Initial Comments: This is a 72-year-old female who presents to the emergency department for abdominal pain. Symptoms started around 11 AM while she was in the middle of dialysis. Pain starts in the right lower quadrant and travels up to the right upper quadrant and then comes back down to the right lower quadrant. She has associated nausea. Denies any fever/chills or diarrhea/constipation. States that she has a hx of colon cancer. She was given Zofran by EMS en route which was helpful for her nausea. (Cinda Cisse) - Related Data Home Medications Medication Instructions Recorded Confirmed Aspirin 81 mg PO DAILY 12/14/14 09/22/23 Omeprazole 40 mg PO DAILY 11/27/18 09/22/23 Furosemide [Lasix] 60 mg PO DAILY 11/15/19 09/22/23 Metoprolol Tartrate [Lopressor] 25 mg PO BID 11/15/19 09/22/23 Acetaminophen [Tylenol 8 Hour] 650 mg PO Q6H PRN 06/25/21 09/22/23 DULoxetine HCL [Cymbalta] 60 mg PO DAILY 06/25/21 09/22/23 Lidocaine-Prilocaine Cream [Emla 1 applic TOPICAL DAILY PRN 06/25/21 09/22/23 Cream 2.5%/2.5%] allopurinoL [Zyloprim] 100 mg PO DAILY 10/15/22 09/22/23 ALPRAZolam [Xanax] 0.25 mg PO BID PRN 09/22/23 09/22/23 Ferric Citrate [Auryxia] 630 mg PO TID-W/MEALS 09/22/23 09/22/23 Folic Acid/Vit B Complex and C 0.8 mg PO DAILY 09/22/23 09/22/23 [Nephro-Callie Tablet] Allergies Allergy/AdvReac Type Severity Reaction Status Date / Time amoxicillin trihydrate Allergy Severe Anaphylaxis Verified 09/22/23 14:40 [From Augmentin] iodine Allergy Severe Anaphylaxis Verified 09/22/23 14:40 menthol Allergy Severe Anaphylaxis Verified 09/22/23 14:40 potassium clavulanate Allergy Severe Anaphylaxis Verified 09/22/23 14:40 [From Augmentin] sulfasalazine Allergy Swells up Verified 09/22/23 14:40 [From Azulfidine] Review of Systems ROS Other: All systems not noted in ROS Statement are negative. <Cinad Cisse - Last Filed: 09/22/23 16:45> ROS Other: All systems not noted in ROS Statement are negative. <Amy Lloyd - Last Filed: 09/22/23 20:00> ROS Statement: Those systems with pertinent positive or pertinent negative responses have been documented in the HPI. Past Medical History Past Medical History: Cancer, Dialysis, GERD/Reflux, GI Bleed, Hearing Disorder / Deafness, Hypertension, Osteoarthritis (OA), Renal Disease Additional Past Medical History / Comment(s): ESRD - hemodialysis Tues/Thurs/Sat. Mineral bone disease, mild heart enlargement, skin cancer removed from nose, hx lower GI bleed years ago, UTI, EKWOK bilaterally with hearing aids, hx colon cancer with surgery. History of Any Multi-Drug Resistant Organisms: None Reported Past Surgical History: Appendectomy, Bowel Resection, Joint Replacement, Tonsillectomy Additional Past Surgical History / Comment(s): Left arm fistula, colonoscopy, skin cancer removed from nose, total right knee arthroplasty, bilateral cataract surgery. Past Anesthesia/Blood Transfusion Reactions: Previous Problems w/ Anesthesia Additional Past Anesthesia/Blood Transfusion Reaction / Comment(s): Difficulty waking. Has never had a blood transfusion. Past Psychological History: No Psychological Hx Reported Smoking Status: Former smoker Past Alcohol Use History: None Reported Past Drug Use History: None Reported - Past Family History Father Family Medical History: Cancer Additional Family Medical History / Comment(s): Unknown Cancer. <Cinda Cisse - Last Filed: 09/22/23 16:45> General Exam Limitations: no limitations General appearance: alert, in no apparent distress Head exam: Present: atraumatic, normocephalic, normal inspection Respiratory exam: Present: normal lung sounds bilaterally. Absent: respiratory distress, wheezes, rales, rhonchi, stridor Cardiovascular Exam: Present: regular rate, normal rhythm, normal heart sounds. Absent: systolic murmur, diastolic murmur, rubs, gallop, clicks GI/Abdominal exam: Present: soft, tenderness (Right sided), normal bowel sounds. Absent: distended Neurological exam: Present: alert, oriented X3, CN II-XII intact Psychiatric exam: Present: normal affect, normal mood Skin exam: Present: warm, dry, intact, normal color. Absent: rash <Cinda Cisse - Last Filed: 09/22/23 16:45> Course Vital Signs 09/22/23 09/22/23 09/22/23 14:03 15:03 17:30 Temperature 98.1 F 98.1 F Pulse Rate 73 74 66 Respiratory 16 17 16 Rate Blood Pressure 103/49 107/64 114/63 O2 Sat by Pulse 95 100 97 Oximetry Medical Decision Making - Lab Data Result diagrams: 09/22/23 14:59 09/22/23 14:59 - Radiology Data Radiology results: report reviewed, image reviewed <Cinda Cisse - Last Filed: 09/22/23 16:45> - Lab Data Result diagrams: 09/22/23 14:59 09/22/23 14:59 <Amy Lloyd - Last Filed: 09/22/23 20:00> - Medical Decision Making This is a 72 year old female who presents to the emergency department for abdominal pain. Was pt. sent in by a medical professional or institution? @ -No Did you speak to anyone other than the patient for history? @ -No Did you review nursing and triage notes? @ -Yes, and I agree, it is accurate with regards to the patient's symptoms. Were old charts reviewed? @ -No Differential Diagnosis? @ -Differential Abdominal Pain Women: Appendicitis, Cholecystitis, diverticulosis, ischemic bowel, pancreatitis, hepatitis, UTI, gastroenteritis, AAA, incarcerated hernia, bowel obstruction, constipation, inflammatory bowel, hepatitis, peptic ulcer disease, splenic infarction, perforated viscus, vulvitis, ovarian torsion, PID, kidney stone, placenta abruption, this is not meant to be an all-inclusive list EKG interpreted by me (3pts min.)? @ -EKG interpreted by me demonstrating the following: Sinus rhythm. Ventricular rate 67 bpm, MA interval 201 ms QRS duration 118 ms, QTc 423 ms. X-rays interpreted by me (1pt min.)? @ -Not obtained CT interpreted by me (1pt min.)? @ -Pending at case sign out U/S interpreted by me (1pt. min.)? @ -Not obtained What testing was considered but not performed? (CT, X-rays, U/S, labs)? Why? @ -None What meds were considered but not given? Why? @ -None Did you discuss the management of the patient with other professionals? @ -No Did you reconcile home meds? @ -No Was smoking cessation discussed for >3mins.? @ -No Was critical care preformed (if so, how long)? @ -No Were there social determinants of health that impacted care today? How? (Homele ssness, low income, unemployed, alcoholism, drug addiction, transportation, low edu. Level, literacy, decrease access to med. care, group home, rehab)? @ -No Was there de-escalation of care discussed even if they declined? (Discuss DNR or withdrawal of care, Hospice)? @ -No What co-morbidities impacted this encounter? (DM, HTN, Smoking, COPD, CAD, Canc er, CVA, Hep., AIDS, mental health diagnosis, sleep apnea, morbid obesity)? @ -ESRD on dialysis, colon cancer, GERD Was patient admitted / discharged? @ -Lab work fairly unremarkable. Renal function consistent with patient's history of renal failure and appears to be improved when compared with prior. Urinalysis negative for signs of infection. CT scan of the abdomen and pelvis obtained. Case signed out to Amy Lloyd PA-C at shift completion pending CT scan results. (Cinda Cisse) Patient is signed out to me by Cinda Cisse PA-C pending CT results. CT shows no acute abnormality demonstrated to explain patient's symptoms. Nonobstructing small broad-based fat and bowel containing hernia in the right anterior abdomina l wall. Other chronic and likely incidental findings. On reassessment the patient is resting comfortably denies any pain at this time. Her hernia is easily reducible. She will be discharged home. Follow-up with PCP. Report back to ER with any new or worsening symptoms. Discussed return parameters and answered all questions. Patient conveyed verbal understanding and agreed to the plan. I discussed this case in detail with my attending Dr. De Anda Diagnosis/symptom? @Abdominal pain Acute, or Chronic, or Acute on Chronic? @Acute Uncomplicated (without systemic symptoms) or Complicated (systemic symptoms)? @Uncomplicated Side effects of treatment? @ [none] Exacerbation, Progression, or Severe Exacerbation] @ [no] Poses a threat to life or bodily function? @Low likelihood (Amy Lloyd) - Lab Data Lab Results 09/22/23 09/22/23 09/22/23 Range/Units 14:59 14:59 14:59 WBC 6.5 (3.8-10.6) k/uL RBC 2.70 L (3.80-5.40) m/uL Hgb 9.0 L (11.4-16.0) gm/dL Hct 28.4 L (34.0-46.0) % MCV 105.0 H (80.0-100.0) fL MCH 33.4 (25.0-35.0) pg MCHC 31.8 (31.0-37.0) g/dL RDW 14.4 (11.5-15.5) % Plt Count 112 L (150-450) k/uL MPV 7.7 Neutrophils % 73 % Lymphocytes % 21 % Monocytes % 3 % Eosinophils % 1 % Basophils % 0 % Neutrophils # 4.8 (1.3-7.7) k/uL Lymphocytes # 1.4 (1.0-4.8) k/uL Monocytes # 0.2 (0-1.0) k/uL Eosinophils # 0.1 (0-0.7) k/uL Basophils # 0.0 (0-0.2) k/uL Hypochromasia Slight Macrocytosis Moderate Sodium 136 L (137-145) mmol/L Potassium 3.8 (3.5-5.1) mmol/L Chloride 102 (98-107) mmol/L Carbon Dioxide 29 (22-30) mmol/L Anion Gap 5 mmol/L BUN 14 (7-17) mg/dL Creatinine 2.31 H (0.52-1.04) mg/dL Est GFR (CKD-EPI)AfAm 23 (>60 ml/min/1.73 sqM) Est GFR (CKD-EPI)NonAf 20 (>60 ml/min/1.73 sqM) Glucose 91 (74-99) mg/dL Plasma Lactic Acid Nino 1.5 (0.7-2.0) mmol/L Calcium 8.7 (8.4-10.2) mg/dL Total Bilirubin 0.6 (0.2-1.3) mg/dL AST 32 (14-36) U/L ALT 16 (4-34) U/L Alkaline Phosphatase 202 H (38-126) U/L Total Protein 6.4 (6.3-8.2) g/dL Albumin 3.8 (3.5-5.0) g/dL Amylase 47 (30-110) U/L Lipase 104 (23-300) U/L Urine Color Urine Appearance (Clear) Urine pH (5.0-8.0) Ur Specific Davis (1.001-1.035) Urine Protein (Negative) Urine Glucose (UA) (Negative) Urine Ketones (Negative) Urine Blood (Negative) Urine Nitrite (Negative) Urine Bilirubin (Negative) Urine Urobilinogen (<2.0) mg/dL Ur Leukocyte Esterase (Negative) Urine WBC (0-5) /hpf Ur Squamous Epith Cells (0-4) /hpf Urine Bacteria (None) /hpf Urine Mucus (None) /hpf 09/22/23 Range/Units 15:42 WBC (3.8-10.6) k/uL RBC (3.80-5.40) m/uL Hgb (11.4-16.0) gm/dL Hct (34.0-46.0) % MCV (80.0-100.0) fL MCH (25.0-35.0) pg MCHC (31.0-37.0) g/dL RDW (11.5-15.5) % Plt Count (150-450) k/uL MPV Neutrophils % % Lymphocytes % % Monocytes % % Eosinophils % % Basophils % % Neutrophils # (1.3-7.7) k/uL Lymphocytes # (1.0-4.8) k/uL Monocytes # (0-1.0) k/uL Eosinophils # (0-0.7) k/uL Basophils # (0-0.2) k/uL Hypochromasia Macrocytosis Sodium (137-145) mmol/L Potassium (3.5-5.1) mmol/L Chloride (98-107) mmol/L Carbon Dioxide (22-30) mmol/L Anion Gap mmol/L BUN (7-17) mg/dL Creatinine (0.52-1.04) mg/dL Est GFR (CKD-EPI)AfAm (>60 ml/min/1.73 sqM) Est GFR (CKD-EPI)NonAf (>60 ml/min/1.73 sqM) Glucose (74-99) mg/dL Plasma Lactic Acid Nino (0.7-2.0) mmol/L Calcium (8.4-10.2) mg/dL Total Bilirubin (0.2-1.3) mg/dL AST (14-36) U/L ALT (4-34) U/L Alkaline Phosphatase (38-126) U/L Total Protein (6.3-8.2) g/dL Albumin (3.5-5.0) g/dL Amylase (30-110) U/L Lipase (23-300) U/L Urine Color Light Yellow Urine Appearance Cloudy H (Clear) Urine pH 7.5 (5.0-8.0) Ur Specific Davis 1.008 (1.001-1.035) Urine Protein 1+ H (Negative) Urine Glucose (UA) Negative (Negative) Urine Ketones Negative (Negative) Urine Blood Negative (Negative) Urine Nitrite Negative (Negative) Urine Bilirubin Negative (Negative) Urine Urobilinogen <2.0 (<2.0) mg/dL Ur Leukocyte Esterase Negative (Negative) Urine WBC 1 (0-5) /hpf Ur Squamous Epith Cells 7 H (0-4) /hpf Urine Bacteria Occasional H (None) /hpf Urine Mucus Rare H (None) /hpf Disposition <Cinda Cisse - Last Filed: 09/22/23 16:45> Is patient prescribed a controlled substance at d/c from ED?: No Time of Disposition: 18:20 <Amy Lloyd - Last Filed: 09/22/23 20:00> Clinical Impression: Abdominal pain Disposition: HOME SELF-CARE Condition: Good Instructions (If sedation given, give patient instructions): Abdominal Pain (ED) Additional Instructions: Follow-up with PCP. Report back to ER with any new or worsening symptoms. Referrals: None,Stated [REFERRING] - 1-2 days
[2023-09-22 15:00] VITALS: TEMP 98.1
[2023-09-22] MEDS: MORPHINE SULFATE 2 MG/ML SYRINGE IVP STA (15:03)
[2023-09-22 15:07] LABS: Basophils % (A) 0 %; Eosinophils # (A) 0.1 k/uL (0-0.7); Eosinophils % (A) 1 %; HCT 28.4 % (34.0-46.0); Hypochromasia Slight; Lymphocytes # (A) 1.4 k/uL (1.0-4.8); Lymphocytes % (A) 21 %; MCH 33.4 pg (25.0-35.0); MCHC 31.8 g/dL (31.0-37.0); Macrocytosis Moderate; Mean Platelet Volume 7.7; Monocytes # (A) 0.2 k/uL (0-1.0); Monocytes % (A) 3 %; Neutrophils # (A) 4.8 k/uL (1.3-7.7); Neutrophils % (A) 73 %; Platelet Count 112 k/uL (150-450); RDW 14.4 % (11.5-15.5); WBC 6.5 k/uL (3.8-10.6)
[2023-09-22 15:19] LABS: ALT 16 U/L (4-34); African American GFR (CKD) 23 (>60 ml/min/1.73 sqM); Albumin 3.8 g/dL (3.5-5.0); Amylase 47 U/L (30-110); Anion Gap 5 mmol/L; Blood Urea Nitrogen 14 mg/dL (7-17); Calcium 8.7 mg/dL (8.4-10.2); Carbon Dioxide 29 mmol/L (22-30); Chloride 102 mmol/L (98-107); Glucose 91 mg/dL (74-99); Lipase 104 U/L (23-300); Non-African American GFR(CKD) 20 (>60 ml/min/1.73 sqM); Sodium 136 mmol/L (137-145); Total Bilirubin 0.6 mg/dL (0.2-1.3); Total Protein 6.4 g/dL (6.3-8.2)
[2023-09-22 15:21] LABS: AST 32 U/L (14-36); Alkaline Phosphatase 202 U/L (38-126); Potassium 3.8 mmol/L (3.5-5.1)
[2023-09-22 16:32] LABS: Appearance,Urine Cloudy (Clear); Bacteria,Urine Occasional /hpf; Bilirubin,Urine Negative (Negative); Blood,Urine Negative (Negative); Color,Urine Light Yellow; Glucose,Urine (UA) Negative (Negative); Ketones,Urine Negative (Negative); Leukocyte Esterase,Urine Negative (Negative); Mucus,Urine Rare /hpf; Nitrite,Urine Negative (Negative); PH, Urine 7.5 (5.0-8.0); Protein,Urine 1+ (Negative); Specific Gravity,Urine 1.008 (1.001-1.035); Squamous Epithelial Cell,Urine 7 /hpf (0-4); Urobilinogen,Urine <2.0 mg/dL (<2.0); WBC,Urine 1 /hpf (0-5)
[2023-09-22 17:32] VITALS: BP 114/63; PULSE 66; RESP 16
--- NOTE | 2023-09-22 17:47 | CT ---
EXAMINATION TYPE: CT abdomen pelvis wo con CT DLP: 1003.7 mGycm, Automated exposure control for dose reduction was used. DATE OF EXAM: 09/22/2023 3:27 PM COMPARISON: None. CLINICAL INDICATION:Female, 72 years old with history of Right sided abdominal pain; RT side abdomina l pain TECHNIQUE: Axial CT of the abdomen and pelvis. Sagittal and coronal reformats were created on a [employer] workstation. Contrast used: mL of , (none if empty) Oral contrast used: without Oral Contrast (none if empty) FINDINGS: LOWER CHEST: Clear lungs. Some widening in AP dimension can be seen with COPD physiology. Heart appea rs moderately enlarged with partially seen mitral valve and aortic valve calcifications. Mildly promi nent pericardial fat. The lesion. ABDOMEN LIVER: Unremarkable GALLBLADDER AND BILE DUCTS: The gallbladder is surgically absent. Biliary tree does not appear pathol ogically dilated. PANCREAS: Unremarkable. SPLEEN: Unremarkable. ADRENAL GLANDS: Mildly thickened, may be seen with hyperplasia.. KIDNEYS AND URETERS: Severe right renal atrophy. Moderate left renal atrophy. Couple renal cysts are suggested, left larger than right. No urinary calculi or hydronephrosis. PELVIS BLADDER: Incompletely distended but grossly unremarkable. REPRODUCTIVE: Unremarkable. ABDOMEN & PELVIS STOMACH AND BOWEL: Stomach and small bowel are nondistended. There is a small area of broad-based her niation in the right anterior abdominal wall image 49 which contains fat and a protruding small bowel loop without evidence of obstruction or inflammation. Inferior to this, there is a relatively small broad-based fat containing hernia protrusion. Farther cranially, there is a broad-based fat-containin g hernia with a neck about 3.8 cm which extends to the right of midline. Scarring changes also in the anterior abdominal wall with possible changes of prior herniorrhaphy. PERITONEUM/RETROPERITONEUM: No evidence of pneumoperitoneum or free fluid. VASCULATURE: Moderate atherosclerotic calcifications are present throughout the abdominal aorta and i ts branches. No evidence of aortic aneurysm. LYMPH NODES: No enlarged nodes by CT size criteria. SOFT TISSUE/ABDOMINAL WALL: Please see above description of hernias. MUSCULOSKELETAL: No acute osseous abnormalities. Moderate disc degeneration changes are present throu ghout the thoracolumbar spine. IMPRESSION: 1. No acute abnormality demonstrated to explain patient's symptoms. 2. Nonobstructing small broad-based fat and bowel-containing hernia in the right anterior abdominal wall. 3. Other chronic and likely incidental findings, as described above.
== END 2023-09-22 18:30 | disposition home or self-care (01) ==
LOC: EC 14:02
DX: K43.9 Ventral hernia without obstruction or gangrene (principal); K21.9 Gastro-esophageal reflux disease without esophagitis; I12.0 Hypertensive chronic kidney disease with stage 5 chronic kidney disease or end stage renal disease; N18.6 End stage renal disease; Z99.2 Dependence on renal dialysis; Z87.891 Personal history of nicotine dependence; Z85.038 Personal history of other malignant neoplasm of large intestine
CPT/HCPCS: 36415; 93005; 80053; 82150; 83605; 83690; 85025; 81001; 74176; 99285; 96374; J2270

== ENCOUNTER 2023-10-24 13:07 | Day surgery (SDC) | payer MEDICARE, OTHER ==
[~2023-10-24 13:07] MED LIST changes: -ACETAMINOPHEN TAB 500 MG TAB PO PRN; -HEPARIN SODIUM,PORCINE/PF 5,000 UNIT/0.5 ML SYRINGE SQ PRN; -LACTATED RINGERS 1,000 ML IV SCH; +LIDOCAINE 1% (10MG/ML) FOR IV START INTRADERMA PRN; -ONDANSETRON 4 MG/2 ML VIAL IVP ONE; -fentaNYL (PF) 50 MCG/ML 2 ML AMP IV PRN
[2023-10-24] MEDS: IV FLUID CONTINUATION 1,000 ML IV ONE (13:34)
[2023-10-24 13:59] VITALS: TEMP 97
[2023-10-24] MEDS: LACTATED RINGERS 1,000 ML IV SCH (14:01)
[2023-10-24] MEDS ORDERED: PROPOFOL 10 MG/ML 20 ML VIAL IV ONE (14:58)
--- NOTE | 2023-10-24 15:09 | P.OP ---
Date of Procedure: 10/24/23 Preoperative Diagnosis: Gerd, dysphagia Postoperative Diagnosis: Antral gastritis Mild esophagitis Procedure(s) Performed: EGD Anesthesia: MAC Surgeon: El Corley Pathology: other (Antral gastritisMild esophagitis) Condition: stable Disposition: PACU Description of Procedure: Patient was placed on the endoscopy table in the lateral position. She received IV sedation. The gas was placed oropharynx passed in the esophagus and stomach. Scope then placed through the pylorus. The first and second portion of the duodenum appeared normal. Scope was then brought back to the antrum this appeared moderately inflamed. A biopsy was performed. The scope was then brought back through 7. There is no other gas pathology seen. The GE junction was at 40 cm. The distal esophagus is mildly inflamed. Biopsy performed. The proximal esophagus appeared normal. Scope withdrawn for the patient.
[2023-10-24 15:16] VITALS: RESP 18
[2023-10-24 15:28] VITALS: BP 132/68
[2023-10-24 16:24] VITALS: PULSE 67
== END 2023-10-24 16:08 | disposition home or self-care (01) ==
LOC: ORWHC2ENDO 13:07
PROVIDERS: ATTEND Surgery
DX: K29.50 Unspecified chronic gastritis without bleeding (principal); K21.00 Gastro-esophageal reflux disease with esophagitis, without bleeding; K31.9 Disease of stomach and duodenum, unspecified; N18.9 Chronic kidney disease, unspecified; H91.90 Unspecified hearing loss, unspecified ear; M19.90 Unspecified osteoarthritis, unspecified site; Z85.038 Personal history of other malignant neoplasm of large intestine; Z99.2 Dependence on renal dialysis; Z85.828 Personal history of other malignant neoplasm of skin; Z79.1 Long term (current) use of non-steroidal anti-inflammatories (NSAID); Z79.899 Other long term (current) drug therapy; Z88.1 Allergy status to other antibiotic agents; Z88.0 Allergy status to penicillin; Z88.2 Allergy status to sulfonamides
CPT/HCPCS: 88305; 84132; 43239; J2704

== ENCOUNTER → 2024-02-22 | Outpatient (CLI) | payer MEDICARE, OTHER ==
[~2024-02-22] MED LIST changes: -LIDOCAINE 1% (10MG/ML) FOR IV START INTRADERMA PRN; +REGADENOSON 0.4 MG/5 ML SYRINGE IV PRN
--- NOTE | 2024-02-22 11:13 | CA ---
Lexiscan Nuclear Stress Test Report Name: Priyanka Sharma Exam Date: 02/22/2024 09:46 Exam Location: [facility] Ht (in): 57 Wt (lb): 209 BSA: 1.83 Ordering Phys: Duyen Alvarez MD Referring Phys: DUYEN ALVAREZ Technologist: Humberto Simeon Age: 73 Gender: F : 1950 Procedure CPT: Indications: R07.9 Chest pain; R06.02 Shortness of breath w/exe ICD-10 Codes: Patient History: Medications: Meds past 24 hrs: Pretest Chest Pain: STRESS TEST Lexiscan Protocol Exercise Duration (min:sec): 01:[address] Depressions (mm): Angina Score: Marie Score: Resting HR (bpm): 72 Peak HR (bpm): 93 Resting BP (mmHg): 139 / 84 Peak BP (mmHg): 169 / 72 MPHR: 146 Target HR: 124 % MPHR: 64 METS: 1.0 Total Dose: Peak Dose: Atropine: Double Product: 26793 BP Response: Stress Termination: INFUSION COMPLETE Stress Symptoms: NO SYMPTOMS Stress Summary: ECG ANALYSIS Resting ECG: Stress ECG: CONCLUSIONS Nondiagnostic electrocardiogram stress test Dr. Guillermo Lou MD (Electronically Signed) Final Date: 22 February 2024 11:12
--- NOTE | 2024-02-23 05:15 | NM ---
EXAMINATION TYPE: NM stress lexiscan cardiolite DATE OF EXAM: 02/22/2024 COMPARISON: Prior nuclear medicine stress study 2016 CLINICAL INDICATION: Female, 73 years old with history of R07.9 Chest pain; R06.02 Shortness of breat h w/exe; history of prior tobacco use in the past. TECHNIQUE: After the intravenous administration of 7.9 mCi Tc 99m Sestamibi - Cardiolite resting SPE CT images acquired 45 minutes post injection. The patient received 0.4mg Lexiscan, 26.6 mCi Tc 99m Sestamibi - Stress images obtained [address] injection FINDINGS: Review of stress and rest SPECT images redemonstrates defect in the inferior left ventricular wall si milar to prior on stress and rest images. No convincing scintigraphic evidence for reversible ischem ia. Gated analysis shows normal wall motion with an estimated left ventricular ejection fraction of 5 8 %. 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 No convincing evidence for reversibl e ischemia . No significant change from prior study. [facility], , 02/23/2024 5:13 AM
== END | disposition home or self-care (01) ==
LOC: RADNMMAIN 08:00
PROVIDERS: ATTEND Family Medicine
DX: R06.02 Shortness of breath (principal); R07.9 Chest pain, unspecified
CPT/HCPCS: 93017; 78452; A9500; J2785

== ENCOUNTER 2024-03-26 11:40 | Day surgery (SDC) | payer MEDICARE, OTHER ==
[2024-03-23 09:30] VITALS: BMI 45.4
[2024-03-26 12:17] VITALS: TEMP 97.4
[2024-03-26] MEDS: IV FLUID CONTINUATION 1,000 ML IV ONE (12:26)
[2024-03-26] MEDS: LACTATED RINGERS 1,000 ML IV SCH (12:26)
[2024-03-26] MEDS ORDERED: LIDOCAINE 1% INJ 10MG/ML (20 ML MDV) ONE (13:07)
[2024-03-26] MEDS ORDERED: PROPOFOL 10 MG/ML 20 ML VIAL IV ONE (13:07)
--- NOTE | 2024-03-26 13:15 | P.GSHP ---
History of Present Illness H&P Date: 03/26/24 Chief Complaint: Positive Cologuard This a 73-year-old female who presents today for colonoscopy patient's recent positive Cologuard test. Past Medical History Past Medical History: Cancer, Dialysis, GERD/Reflux, GI Bleed, Hearing Disorder / Deafness, Hypertension, Osteoarthritis (OA), Renal Disease Additional Past Medical History / Comment(s): ESRD - hemodialysis Tues/Th/Sat. Mineral bone disease, mild heart enlargement, skin cancer removed from nose, hx lower GI bleed years ago, hx UTI, [place] bilaterally with hearing aids, hx colon cancer with surgery. abdominal pain History of Any Multi-Drug Resistant Organisms: None Reported Past Surgical History: Appendectomy, Bowel Resection, Joint Replacement, Tonsillectomy Additional Past Surgical History / Comment(s): Left arm fistula, colonoscopy, skin cancer removed from nose, total right knee arthroplasty, bilateral cataract surgery. Past Anesthesia/Blood Transfusion Reactions: Previous Problems w/ Anesthesia Additional Past Anesthesia/Blood Transfusion Reaction / Comment(s): Difficulty waking. Has never had a blood transfusion. Smoking Status: Former smoker - Past Family History Father Family Medical History: Cancer Additional Family Medical History / Comment(s): Unknown Cancer. Medications and Allergies Home Medications Medication Instructions Recorded Confirmed Type Aspirin 81 mg PO DAILY 12/14/14 03/23/24 History Omeprazole 40 mg PO DAILY 11/27/18 03/23/24 History Furosemide [Lasix] 20 mg PO DAILY 11/15/19 03/23/24 History Metoprolol Tartrate [Lopressor] 25 mg PO BID 11/15/19 03/23/24 History Acetaminophen [Tylenol 8 Hour] 650 mg PO Q6H PRN 06/25/21 03/23/24 History DULoxetine HCL [Cymbalta] 60 mg PO DAILY 06/25/21 03/23/24 History allopurinoL [Zyloprim] 100 mg PO DAILY 10/15/22 03/23/24 History ALPRAZolam [Xanax] 0.25 mg PO BID PRN 09/22/23 03/23/24 History Ferric Citrate [Auryxia] 630 mg PO TID-W/MEALS 09/22/23 03/23/24 History Folic Acid/Vit B Complex and C 0.8 mg PO DAILY 09/22/23 03/23/24 History [Nephro-Callie Tablet] Cinacalcet [Sensipar] 30 mg PO DAILY 10/24/23 03/23/24 History Allergies Allergy/AdvReac Type Severity Reaction Status Date / Time amoxicillin trihydrate Allergy Severe Anaphylaxis Verified 03/26/24 12:06 [From Augmentin] iodine Allergy Severe Anaphylaxis Verified 03/26/24 12:06 menthol Allergy Severe Anaphylaxis Verified 03/26/24 12:06 potassium clavulanate Allergy Severe Anaphylaxis Verified 03/26/24 12:06 [From Augmentin] sulfasalazine Allergy Swells up Verified 03/26/24 12:06 [From Azulfidine] Surgical - Exam Vital Signs Temp Pulse Resp BP Pulse Ox 97.4 F L 69 16 163/77 97 03/26/24 12:16 03/26/24 12:16 03/26/24 12:16 03/26/24 12:16 03/26/24 12:16 - General well developed, well nourished, no distress - Eyes PERRL - ENT normal pinna - Neck no masses - Respiratory normal expansion - Cardiovascular Rhythm: regular - Abdomen Abdomen: soft, non tender Assessment and Plan Assessment: Positive Cologuard test. Will perform colonoscopy.
--- NOTE | 2024-03-26 13:28 | P.OP ---
Date of Procedure: 03/26/24 Preoperative Diagnosis: Positive Cologuard test Postoperative Diagnosis: Colon polyp Procedure(s) Performed: Colonoscopy Anesthesia: MAC Surgeon: El Corley Pathology: other (Colon polyp) Condition: stable Disposition: PACU Description of Procedure: The patient was placed on the endoscopy table in the lateral position. She received IV sedation. The digital rectal exam was performed which revealed no abnormalities. The flexible colonoscope was then placed patient anus passed throughout the colon. The ileocecal valve was visualized. The cecum appeared normal. The ascending and transverse colon appeared normal. In the descending colon there is a small sessile polyp. This removed with the cold forcep. The patient a previous colorectal anastomosis. This was visualized. The visualized rectum appeared normal. Scope withdrawn for the patient.
[2024-03-26 13:49] VITALS: BP 136/54; PULSE 62; RESP 18
== END 2024-03-26 14:09 | disposition home or self-care (01) ==
LOC: ORWHC2ENDO 11:40
PROVIDERS: ATTEND Surgery
DX: K63.5 Polyp of colon (principal); K21.9 Gastro-esophageal reflux disease without esophagitis; K92.2 Gastrointestinal hemorrhage, unspecified; M19.90 Unspecified osteoarthritis, unspecified site; I12.0 Hypertensive chronic kidney disease with stage 5 chronic kidney disease or end stage renal disease; N18.6 End stage renal disease; Z85.038 Personal history of other malignant neoplasm of large intestine; Z87.440 Personal history of urinary (tract) infections; Z85.828 Personal history of other malignant neoplasm of skin; Z90.49 Acquired absence of other specified parts of digestive tract; Z90.89 Acquired absence of other organs; Z96.653 Presence of artificial knee joint, bilateral; Z99.2 Dependence on renal dialysis; Z87.891 Personal history of nicotine dependence; Z88.8 Allergy status to other drugs, medicaments and biological substances; Z88.0 Allergy status to penicillin; Z88.1 Allergy status to other antibiotic agents; Z88.2 Allergy status to sulfonamides; Z79.82 Long term (current) use of aspirin; Z79.899 Other long term (current) drug therapy
CPT/HCPCS: 88305; 45380; J2003; J2704; 45385

== ENCOUNTER → 2024-10-15 | Outpatient (CLI) | payer MEDICARE, OTHER ==
--- NOTE | 2024-10-15 14:00 | US ---
EXAMINATION TYPE: US kidneys/renal and bladder DATE OF EXAM: 10/15/2024 COMPARISON: CT 2023 CLINICAL INDICATION: Female, 73 years old with history of STONES N200; r/o stones TECHNIQUE: Grayscale imaging of the bilateral kidneys and urinary bladder: FINDINGS: EXAM MEASUREMENTS: Right Kidney: 5.0 x 2.1 x 2.2 cm Left Kidney: 7.6 x 4.2 x 4.1 cm Right Kidney: Atrophic Left Kidney: Inferior pole cystic area measuring 1.7 x 1.5 x 1.2cm Bladder: Patient voided just prior to exam. No hydronephrosis or nephrolithiasis. No solid renal masses. There is atrophy with with significant c ortical thinning of the right kidney. Poor cortical medullary differentiation of the left kidney. Sim ple thin-walled left renal inferior pole cyst measuring up to 1.7 cm. Urinary bladder is not visualiz ed due to patient recently voiding. IMPRESSION: 1. No evidence for obstructive uropathy. 2. Chronic medical renal disease involving both kidneys with significant atrophy of the right kidney. 3. Simple left renal cyst. [facility], , 10/15/2024 1:58 PM
== END | disposition home or self-care (01) ==
LOC: RADUSWWP 13:22
PROVIDERS: ATTEND Internal Medicine Nephrology
DX: N20.0 Calculus of kidney (principal); N28.1 Cyst of kidney, acquired; N28.89 Other specified disorders of kidney and ureter; N26.1 Atrophy of kidney (terminal)
CPT/HCPCS: 76770